=== PATIENT | female | born 1950 | race Caucasian/White ===

== ENCOUNTER 2024-10-09 15:42 | Inpatient (IN) | payer MEDICARE, OTHER, SELFPAY ==
[2024-10-09] VITALS (11 sets, daily range): BP systolic 115–138; BP diastolic 58–82; PULSE 63–105; RESP 12–18; TEMP 36.1–36.3; O2SAT 89–100; BMI 30.2
--- NOTE | 2024-10-09 15:53 | DI.RAD.S_ITS ---
PROCEDURE: XR HIP W PEL IF DONE LT 2V INDICATIONS: fall R hip pain TECHNIQUE: AP pelvis with lateral view(s) of the left hip(s). COMPARISON: [facility], CR, XR CHEST 1V, 10/09/2024, 16:05. FINDINGS: Bones: There is a moderately displaced, comminuted intratrochanteric left femoral neck fracture. No hip dislocation is seen. No definite fractures of the bones of the pelvis can be seen. Generalized degenerative changes are seen. Soft tissues: The visualized bowel gas pattern is normal. No suspicious soft tissue calcifications. IMPRESSION: Intratrochanteric left femoral neck fracture. Dictated by: Jj Vargas M.D. on 10/09/2024 at 15:28 Approved by: Jj Vargas M.D. on 10/09/2024 at 15:29
--- NOTE | 2024-10-09 16:01 | DI.RAD.S_ITS ---
PROCEDURE: XR CHEST 1V INDICATIONS: dyspnea TECHNIQUE: One view of the chest was acquired. COMPARISON: [facility], CR, XR HIP W PEL IF DONE LT 2V, 10/09/2024, 15:50. FINDINGS: Surgical changes and devices: An AICD is seen. Lungs and pleura: On this supine examination, no large pneumothorax or large pleural effusions are seen. No focal areas of lung consolidation are seen. Mediastinum: The cardiac contours are within normal limits. The aorta demonstrates calcification and tortuosity. Bones and chest wall: Age-appropriate bony degenerative changes are seen. No suspicious bony lesions. Overlying soft tissues appear unremarkable. IMPRESSION: No acute cardiopulmonary abnormality is seen. Postoperative and degenerative changes are seen. Dictated by: Jj Vargas M.D. on 10/09/2024 at 15:29 Approved by: Jj Vargas M.D. on 10/09/2024 at 15:30
--- NOTE | 2024-10-09 16:02 | ED_ITS ---
HPI - General Adult General Chief complaint: Trauma Stated complaint: Fall Time Seen by Provider: 10/09/24 15:55 History of Present Illness HPI narrative: 74-year-old woman with a history of congestive heart failure, coronary artery disease, diabetes, hypertension typically seen by physicians in [place] felt a bit dizzy after going to the bathroom, she was using her walker to get back to her area and stumbled over the walker falling and landing on her left hip with significant left hip pain. Initially he had some right arm pain as it was holding onto the walker but that has since resolved. She is brought in by medics. She is alert and appropriate has no specific complaints beyond the severe left hip pain Related Data Home Medications Medication Instructions Recorded Confirmed atorvastatin 40 mg tablet (Lipitor) 40 mg PO DAILY 10/09/24 10/09/24 cholecalciferol (vitamin D3) 50 50 mcg PO DAILY 10/09/24 10/09/24 mcg (2,000 unit) capsule (Vitamin D3) lansoprazole 30 mg capsule,delayed 30 mg PO DAILY 10/09/24 10/09/24 release (Prevacid) losartan 25 mg tablet 12.5 mg PO DAILY 10/09/24 10/09/24 metoprolol succinate 25 mg 25 mg PO DAILY 10/09/24 10/09/24 tablet,extended release 24 hr mexiletine 150 mg capsule 150 mg PO BID 10/09/24 10/09/24 paroxetine HCl 40 mg tablet (Paxil) 40 mg PO DAILY 10/09/24 10/09/24 potassium chloride 10 mEq 10 meq PO DAILY 10/09/24 10/09/24 tablet,extended release(part/cryst) spironolactone 25 mg tablet 25 mg PO BID 10/09/24 10/09/24 topiramate 200 mg tablet (Topamax) 200 mg PO BID 10/09/24 10/09/24 torsemide 20 mg tablet 40 mg PO DAILY 10/09/24 10/09/24 vitamin B complex and vitamin C 1 cap PO DAILY 10/09/24 10/09/24 no.20-folic acid 1 mg capsule Allergies Allergy/AdvReac Type Severity Reaction Status Date / Time erythromycin base Allergy Verified 10/09/24 16:33 [From Staticin] ethyl alcohol [From Staticin] Allergy Verified 10/09/24 16:33 Sulfa (Sulfonamide Allergy Verified 10/09/24 16:33 Antibiotics) Review of Systems Review of Systems Narrative: Pertinent positive and negative findings as per HPI Patient History Medical History Congestive heart failure Coronary artery disease Hypertension Surgical History History of implantable cardiac defibrillator (ICD) Exam Initial Vital Signs Initial Vital Signs: Vital Signs Pulse Rate 72 10/09/24 15:46 Blood Pressure 138/82 10/09/24 15:46 Pulse Oximetry 96 10/09/24 15:46 General: Healthy appearing, complaining of significant left hip pain but Able to give a complete and coherent history. Well-nourished well-developed HEENT: Moist mucous membranes, normal sclera with reactive pupils, Neck: No JVD, supple Respiratory: Lungs are clear to auscultation, no wheezing no rales no rhonchi. Full and symmetrical air movement Cardiac: Regular rate and rhythm no murmurs no bruits Abdomen: Soft, nontender, no flank pain. No rebound or guarding Skin: Warm and dry, no rashes Neurologic: Grossly neurologically intact with no obvious asymmetries or abnormalities, she does have full sensation to hands and feet Extremities: Left hip with significant pain, internally rotated with knee flexed. Psych: Cooperative, appropriate insight and affect Course Orders Ordered: ED Orders 10/09/24 15:53 XR hip w pel if done LT 2V Stat 10/09/24 16:01 XR chest 1V Stat 10/09/24 16:44 Complete Blood Count AUTO DIFF Stat Comprehensive Metabolic Panel Stat NT-proBNP (BNP-Adult 18+) Stat Troponin I Stat Type and Screen Stat Urinalysis and Microscopic Stat 10/09/24 16:45 EKG-12 Lead Stat 10/09/24 16:49 Consult to Orthopedic Surgery Stat XR femur LT min 2V Stat Acetaminophen (Acetaminophen 325 Mg Tablet) 650 mg PO Q6H PRN PRN Reason: Fever/Mild Pain (1-3) Atorvastatin Calcium (Atorvastatin 20 Mg Tablet) 40 mg PO DAILY ARACELY Hydromorphone HCl (Hydromorphone 0.5 Mg Inj) 0.5 mg IV Q15MIN PRN PRN Reason: Pain, Last Admin: 10/09/24 17:53 Dose: 0.5 mg Documented By: Admin: 10/09/24 17:14 Dose: 0.5 mg Documented By: Admin: 10/09/24 16:52 Dose: 0.5 mg Documented By: TC Hydromorphone HCl (Hydromorphone 0.5 Mg Inj) 0.5 mg IV Q15MIN PRN PRN Reason: Pain, Hydromorphone HCl (Hydromorphone 0.5 Mg Inj) 0.5 mg IV Q2H PRN PRN Reason: Pain, Severe (7-10) Hydroxyzine HCl (Hydroxyzine Hcl 25 Mg Tablet) 25 mg PO Q6H PRN PRN Reason: muscle spasm Last Admin: 10/09/24 17:57 Dose: 25 mg Documented By: TC Dextrose/Sodium Chloride (Dextrose 5%-0.45% Ns) 1,000 mls @ 100 mls/hr IV CONT ARACELY Losartan Potassium (Losartan 25 Mg Tablet) 12.5 mg PO DAILY ARACELY Metoprolol Succinate (Metoprolol Er 25 Mg Tablet) 25 mg PO DAILY ARACELY Naloxone HCl (Naloxone 0.4 Mg/Ml Vial) 0.2 mg IV Q2MIN PRN PRN Reason: Opiate Reversal Non-Formulary Medication (Mexiletine) 150 mg PO BID ARACELY Ondansetron HCl (Ondansetron 4 Mg/2 Ml Inj) 4 mg IV Q8HR PRN PRN Reason: Nausea And Vomiting Pantoprazole Sodium (Pantoprazole Dr 40 Mg Tablet) 40 mg PO 0600 ARACELY Paroxetine HCl (Paroxetine 20 Mg Tablet) 40 mg PO DAILY ARACELY Potassium Chloride (Potassium Chloride 10 Meq Tab) 10 meq PO DAILY ARACELY Spironolactone (Spironolactone 25 Mg Tablet) 25 mg PO BID ARACELY Topiramate (Topiramate 100 Mg Tablet) 200 mg PO BID ARACELY Torsemide (Torsemide 10 Mg Tablet) 40 mg PO DAILY ARACELY Discontinued Medications Ondansetron HCl (Ondansetron 4 Mg/2 Ml Inj) 4 mg IV NOW ONE Stop: 10/09/24 16:44 Last Admin: 10/09/24 16:52 Dose: 4 mg Documented By: DONTE Vital Signs Vital signs: Vital Signs - 8 hr 10/09/24 15:46 10/09/24 15:46 10/09/24 15:48 Temperature 97.3 F L Pulse Rate 72 66 Respiratory Rate 16 Blood Pressure 138/82 138/82 Pulse Oximetry 96 100 Oxygen Delivery Method Room Air 10/09/24 16:00 10/09/24 16:00 10/09/24 16:13 Temperature Pulse Rate 70 Respiratory Rate Blood Pressure 137/80 136/81 Pulse Oximetry 98 Oxygen Delivery Method 10/09/24 16:13 10/09/24 16:30 10/09/24 16:31 Temperature Pulse Rate 65 69 Respiratory Rate Blood Pressure 115/70 Pulse Oximetry 96 97 Oxygen Delivery Method 10/09/24 16:31 10/09/24 17:00 10/09/24 17:00 Temperature Pulse Rate 66 63 Respiratory Rate Blood Pressure 123/68 Pulse Oximetry 98 96 Oxygen Delivery Method Medical Decision Making MDM Narrative Medical decision making narrative: CC: Left hip pain after a fall Complicating co-morbidities: Has not had any care in the [place] or [facility] and does not know other medication she is on. Her that she does have heart failure and he is trying to get her med list from home Data collected from: patient, , medics Social determinants of health that may influence the patients condition: Medical records reviewed: No medical records are available Differential considered: Hip fracture, pelvic fracture, hypotension, infection, acute coronary syndrome all that could have caused the weakness that led to her fall despite the fact that she describes a fall as mostly mechanical Exam documented above, pertinent findings include: Aside from her left hip pain remainder of exam is actually quite benign. She does not have any signs or symptoms of infection or congestive heart failure Imaging studies independently reviewed: Pelvis and hip x-ray does show left intertrochanteric fracture Chest x-ray is unremarkable Consultations: Dr. Nagel, orthopedic surgeon. Did ask for full femur x-rays. Treatments: Dilaudid for pain control, Vistaril for muscle spasm Re-evaluations: Patient would much prefer to be admitted to [facility] where her director communications are. Unfortunately there are no beds available and transfer is not going to be an option. This was reviewed with the patient Discussion: 74-year-old woman who stumbled over her walker while at the [facility] today landing on her left hip and sustaining a femoral trochanteric fracture that will need operative intervention. Patient will be admitted to the hospitalist service and care has been discussed with the patient, , hospitalist and orthopedic surgeon. Additional medical workup has been ordered and is not yet available for review. Medical records are not immediately if he available however did bring in a detailed med list and current med list does recommend what she is actually taking. She will be admitted with anticipation of surgical repair of her hip fracture. Discharge Plan Departure Patient Disposition: Admitted As Inpatient Clinical Impression: Closed hip fracture Qualifiers: Encounter type: initial encounter Laterality: left Qualified Code(s): S72.002A - Fracture of unspecified part of neck of left femur, initial encounter for closed fracture Admit Date/Time: 10/09/24 17:09 Admit Provider: Tyrel Aldana V
--- NOTE | 2024-10-09 16:45 | EKG_ITS ---
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
--- NOTE | 2024-10-09 16:49 | DI.RAD.S_ITS ---
PROCEDURE: XR FEMUR LT MIN 2V INDICATIONS: fracture TECHNIQUE: 2 views of the femur were acquired. COMPARISON: [facility], CR, XR CHEST 1V, 10/09/2024, 16:05. [facility], CR, XR HIP W PEL IF DONE LT 2V, 10/09/2024, 15:50. FINDINGS: Bones: An intertrochanteric fracture of the left femoral neck is again seen. No fracture can be seen more distally in seen. Age-appropriate bony degenerative changes are seen. Soft tissues: No suspicious soft tissue calcifications or masses. IMPRESSION: Intratrochanteric left femoral neck fracture, without a more distal fracture seen. Dictated by: Jj Vargas M.D. on 10/09/2024 at 16:24 Approved by: Jj Vargas M.D. on 10/09/2024 at 16:24
[2024-10-09] MEDS: ONDANSETRON 4 MG/2 ML INJ IV (16:52)
[2024-10-09] MEDS: HYDROMORPHONE 0.5 MG INJ IV ×5 (16:52→22:49)
--- NOTE | 2024-10-09 17:22 | PM.HP.1 ---
History of Present Illness History of Present Illness Date Patient Seen: 10/09/24 Time Patient Seen: 18:05 Date of Onset of Symptoms: 10/09/24 Chief complaint: Fall Narrative: 74-year-old woman [place] from [place] with her tripped coming out of the bathroom, landing on her left hip with immediate pain. She also struck her right shoulder though states there is no pain in this area. She was unable to get up and was brought to the emergency department where she was found to have a left hip intertrochanteric fracture. She has a history of coronary disease and congestive heart failure, ejection fraction 40%, status post AICD pacemaker placement. She denies recent chest pain or cardiac symptoms, and has been stable for several years according to her and her . They had wished to transfer to [facility] though given lack of available bed space was agreeable to staying for surgical and medical management. [facility] Medical History Congestive heart failure Coronary artery disease Hypertension Surgical History History of implantable cardiac defibrillator (ICD) Meds Home Medications and Allergies Home Medications Medication Instructions Recorded Confirmed Type atorvastatin 40 mg tablet (Lipitor) 40 mg PO DAILY 10/09/24 10/09/24 History cholecalciferol (vitamin D3) 50 50 mcg PO DAILY 10/09/24 10/09/24 History mcg (2,000 unit) capsule (Vitamin D3) lansoprazole 30 mg capsule,delayed 30 mg PO DAILY 10/09/24 10/09/24 History release (Prevacid) losartan 25 mg tablet 12.5 mg PO DAILY 10/09/24 10/09/24 History metoprolol succinate 25 mg 25 mg PO DAILY 10/09/24 10/09/24 History tablet,extended release 24 hr mexiletine 150 mg capsule 150 mg PO BID 10/09/24 10/09/24 History paroxetine HCl 40 mg tablet (Paxil) 40 mg PO DAILY 10/09/24 10/09/24 History potassium chloride 10 mEq 10 meq PO DAILY 10/09/24 10/09/24 History tablet,extended release(part/cryst) spironolactone 25 mg tablet 25 mg PO BID 10/09/24 10/09/24 History topiramate 200 mg tablet (Topamax) 200 mg PO BID 10/09/24 10/09/24 History torsemide 20 mg tablet 40 mg PO DAILY 10/09/24 10/09/24 History vitamin B complex and vitamin C 1 cap PO DAILY 10/09/24 10/09/24 History no.20-folic acid 1 mg capsule Allergies Allergy/AdvReac Type Severity Reaction Status Date / Time erythromycin base Allergy Verified 10/09/24 16:33 [From Staticin] ethyl alcohol [From Staticin] Allergy Verified 10/09/24 16:33 Sulfa (Sulfonamide Allergy Verified 10/09/24 16:33 Antibiotics) Review of Systems Review of Systems ROS: Yes All systems reviewed with the patient and are negative except as otherwise documented Exam Vital Signs (past 8 hours): - 10/09/24 15:48 Temperature 97.3 F L Pulse Rate 66 Respiratory Rate 16 Blood Pressure 138/82 Pulse Oximetry 100 Oxygen Delivery Method Room Air Oxygen Delivery Method Room Air Narrative Exam Narrative: GENERAL: This is a well-nourished, well-developed patient, in no apparent distress. HEAD: Atraumatic. Normocephalic. No temporal or scalp tenderness. EYES: Pupils equal round and reactive. Extraocular motions intact. No scleral icterus. No injection or drainage. ENT: Mucous membranes pink and moist. NECK: Trachea midline. No JVD, bruits or lymphadenopathy. Supple, nontender, no meningeal signs. CARDIOVASCULAR: Regular rate and rhythm without murmurs, gallops, or rubs. RESPIRATORY: Clear to auscultation. GASTROINTESTINAL: Abdomen soft, non-tender, nondistended. EXTREMITIES: No clubbing, cyanosis, or edema. Left leg shortened. BACK: Nontender without deformity or crepitance. No flank tenderness. NEUROLOGIC: Alert, oriented, speech fluent, full upper and lower motor strength, no focal deficits evident. DERMATOLOGIC: No rashes or skin lesions. Objective Imaging Chest x-ray: Radiologist's impression: No acute cardiopulmonary abnormality is seen. Postoperative and degenerative changes are seen. Left hip xray: Radiologist's impression: Intratrochanteric left femoral neck fracture. Left femur xray: Radiologist's impression: Intratrochanteric left femoral neck fracture, without a more distal fracture seen. Labs Labs: Pending Assessment & Plan Assessment & Plan narrative: 1. Left intertrochanteric hip fracture. Anticipate surgical repair tomorrow. Orthopedics. 2. Congestive heart failure with reduced ejection fraction. Continue routine medication follow closely in the postoperative period for volume overload. 3. Coronary artery disease. Clinically stable. Pending EKG and laboratory testing. 4. Hypertension. Continue routine medication. 5. Hyperlipidemia. Continue routine medication. 6. Depression continue SSRI. 7. DVT prophylaxis: Sequential compression devices, postoperative management per Orthopedics. 8. Code status: Full code. Plan: -admit as inpatient -operative management per Orthopedics -release old records -pending labs -pending medical clearance Quality MIPS - Admit I confirm the patient?s Advance Care Plan is present, Code status is documented, Surrogate decision maker is in patient?s record [If Yes, STOP here]: Yes [facility] - Meds 'Current medications' to include all prescriptions, [id number] products, herbals, cannabis/cannabidiol products, and vitamin/mineral/dietary (nutritional) supplements. I have utilized all available resources to obtain, update, or review the patient?s current medications. [If Yes, STOP here]: Yes [facility] Charge Codes Initial inpatient/observation care: 44619
[2024-10-09] MEDS: hydrOXYzine HCL 25 MG TABLET PO (17:57)
--- NOTE | 2024-10-09 19:02 | PC.NURSE ---
[place] over her walker in the bathroom. She obtained L.femoral neck fx. Patient given 0.5mg of iv dilaudid and is resting comfortably in room. at bedside. Tele on and scds.
--- NOTE | 2024-10-09 20:08 | P.HP_ITS ---
History of Present Illness History of Present Illness Date Patient Seen: 10/09/24 Time Patient Seen: 20:08 Date of Onset of Symptoms: 10/09/24 Chief complaint: Fall Narrative: This is a pleasant 74-year-old with multiple medical problems [facility] to go to [facility] bathroom and she tripped over a walker and fell and noted the acute onset of severe left hip pain. She normally ambulates with a walker. She does have medical problems including history of congestive heart failure. She says that her most recent echo showed improved function. She does note some generalized weakness. She did not have specific chest pain prior to her fall and was not dizzy or lightheaded. [facility] Medical History Coronary artery disease Hypertension Congestive heart failure Surgical History History of implantable cardiac defibrillator (ICD) Meds Home Medications and Allergies Home Medications Medication Instructions Recorded Confirmed Type atorvastatin 40 mg tablet (Lipitor) 40 mg PO DAILY 10/09/24 10/09/24 History cholecalciferol (vitamin D3) 50 50 mcg PO DAILY 10/09/24 10/09/24 History mcg (2,000 unit) capsule (Vitamin D3) lansoprazole 30 mg capsule,delayed 30 mg PO DAILY 10/09/24 10/09/24 History release (Prevacid) losartan 25 mg tablet 12.5 mg PO DAILY 10/09/24 10/09/24 History metoprolol succinate 25 mg 25 mg PO DAILY 10/09/24 10/09/24 History tablet,extended release 24 hr mexiletine 150 mg capsule 150 mg PO BID 10/09/24 10/09/24 History paroxetine HCl 40 mg tablet (Paxil) 40 mg PO DAILY 10/09/24 10/09/24 History potassium chloride 10 mEq 10 meq PO DAILY 10/09/24 10/09/24 History tablet,extended release(part/cryst) spironolactone 25 mg tablet 25 mg PO BID 10/09/24 10/09/24 History topiramate 200 mg tablet (Topamax) 200 mg PO BID 10/09/24 10/09/24 History torsemide 20 mg tablet 40 mg PO DAILY 10/09/24 10/09/24 History vitamin B complex and vitamin C 1 cap PO DAILY 10/09/24 10/09/24 History no.20-folic acid 1 mg capsule Allergies Allergy/AdvReac Type Severity Reaction Status Date / Time erythromycin base Allergy Verified 10/09/24 16:33 [From Staticin] ethyl alcohol [From Staticin] Allergy Verified 10/09/24 16:33 Sulfa (Sulfonamide Allergy Verified 10/09/24 16:33 Antibiotics) Review of Systems Review of Systems Narrative: She notes her health has been relatively stable. She has some generalized wea kness. She did not have any acute chest pain. She was not lightheaded or dizzy prior to the fall. She is walker dependent. She has a very supportive family at bedside. Exam Vital Signs (past 8 hours): - 10/09/24 15:46 10/09/24 15:46 10/09/24 15:48 Temperature 97.3 F L Pulse Rate 72 66 Respiratory Rate 16 Blood Pressure 138/82 138/82 Pulse Oximetry 96 100 Oxygen Delivery Method Room Air Oxygen Flow Rate 10/09/24 16:00 10/09/24 16:00 10/09/24 16:13 Temperature Pulse Rate 70 Respiratory Rate Blood Pressure 137/80 136/81 Pulse Oximetry 98 Oxygen Delivery Method Oxygen Flow Rate 10/09/24 16:13 10/09/24 16:30 10/09/24 16:31 Temperature Pulse Rate 65 69 Respiratory Rate Blood Pressure 115/70 Pulse Oximetry 96 97 Oxygen Delivery Method Oxygen Flow Rate 10/09/24 16:31 10/09/24 17:00 10/09/24 17:00 Temperature Pulse Rate 66 63 Respiratory Rate Blood Pressure 123/68 Pulse Oximetry 98 96 Oxygen Delivery Method Oxygen Flow Rate 10/09/24 17:30 10/09/24 17:30 10/09/24 18:00 Temperature Pulse Rate 72 Respiratory Rate Blood Pressure 133/78 122/66 Pulse Oximetry 89 L Oxygen Delivery Method Oxygen Flow Rate 10/09/24 18:00 10/09/24 18:15 Temperature 96.9 F L Pulse Rate 87 86 Respiratory Rate 12 Blood Pressure 125/67 Pulse Oximetry 96 97 Oxygen Delivery Method Oxygen Flow Rate 0 Oxygen Delivery Method Room Air Oxygen Flow Rate 0 Narrative Exam Narrative: HEENT is benign, lungs are clear cor regular rate and rhythm abdomen soft and benign, left hip foreshortened, severe pain with any attempted range of motion, mild swelling in bilateral lower extremities, some deformity of her toes in bilateral lower extremities which are taped, she has trace motion leg, no pain with range of motion right hip marked pain with any attempted gentle range motion of the left hip Objective Labs Labs: X-rays show a left intertrochanteric hip fracture which is comminuted but not severely displaced Assessment & Plan Assessment and plan (1) Closed hip fracture: Qualifiers: Encounter type: initial encounter Laterality: left Qualified Code(s): S72.002A - Fracture of unspecified part of neck of left femur, initial encounter for closed fracture Status: Acute Plan I have recommended left hip intramedullary nailing with a femoral nail for her intertrochanteric hip fracture. The procedure options risks benefits and complications were discussed in detail. She is on the medical service. She has multiple medical problems including a history of congestive heart failure. She is scheduled for tomorrow afternoon which hopefully will give the medicine service time to stabilize her medical problems. The options the risks the benefits and complications were discussed in detail number work on getting her set up for surgery tomorrow. Time-Based Coding :: [TOTAL MINUTES] spent with patient and on the chart (including review of chart, obtaining history, exam, reviewing outside data, placing orders, documenting exam and treatment plan, and counseling patient) on [DATE].
[2024-10-09] MEDS: ACETAMINOPHEN 325 MG TABLET 650 MG PO (20:59)
[2024-10-09] MEDS: TOPIRAMATE 100 MG TABLET 200 MG PO (21:00)
[2024-10-09] MEDS: SPIRONOLACTONE 25 MG TABLET PO (21:00)
[2024-10-09 21:30] LABS: Add Manual Diff / Slide Review NO; Basophils Absolute Auto 0 /uL (0-100); Basophils Percent Auto 0.4 % (0-2); Eosinophils Absolute Auto 200 /uL (0-450); Eosinophils Percent Auto 1.3 % (2-4); Hematocrit 40.9 % (36-46); Hemoglobin 13.4 g/dL (12.0-16.0); Lymphocytes Absolute Auto 1300 /uL (1100-4500); Lymphocytes Percent Auto 10.5 % (25-40); Mean Corpuscular HGB Conc 32.8 % (30-36); Mean Corpuscular Hemoglobin 32.2 PG (26-34); Mean Corpuscular Volume 98.2 fL (80-100); Monocytes Absolute Auto 900 /uL (0-900); Monocytes Percent Auto 7.1 % (3-14); Neutrophils Absolute Auto 10300 /uL (1500-7000); Neutrophils Percent Auto 80.7 % (50-75); Platelet Count 203 X10^3/uL (150-400); Red Blood Cell Count 4.17 X10^6/uL (4.0-5.2); Red Cell Distribution Width 14.4 % (11.6-14.8); White Blood Cell Count 12.8 X10^3/uL (4.5-11.0)
[2024-10-09 21:45] LABS: Alanine Aminotransferase 21 IU/L (<35); Albumin 4.3 g/dL (3.5-5.0); Albumin Globulin Ratio 1.8 (1.0-2.8); Alkaline Phosphatase 84 U/L (38-126); Aspartate Aminotransferase 31 IU/L (14-36); BUN Creatinine Ratio 16.4 (6-22); Bilirubin Total 0.4 mg/dL (0.2-1.3); Blood Urea Nitrogen 21 mg/dL (7-17); Calcium 8.8 mg/dL (8.4-10.2); Carbon Dioxide 22 mmol/L (22-32); Chloride 105 mmol/L (98-107); Estimated Glomerular Filt Rate 43 mL/min (>60); Globulin 2.4 g/dL (1.7-4.1); Glucose 109 mg/dL (80-110); HEMOLYSIS 17 (0-50); Potassium 3.9 mmol/L (3.4-5.1); Sodium 136 mmol/L (137-145); Total Protein 6.7 g/dL (6.3-8.2)
[2024-10-09 21:57] LABS: NT-proBNP (BNP-Adult 18+) 844 pg/mL (<450); Troponin I 0.041 ng/mL (0.01-0.034)
[2024-10-10] VITALS (14 sets, daily range): BP systolic 99–127; BP diastolic 60–75; PULSE 91–114; RESP 9–19; TEMP 36.2–37.1; O2SAT 88–99; BMI 30.2
[2024-10-10] MEDS: DEXTROSE 5%-0.45% NS 1,000 ML 100 ML IV (01:00)
[2024-10-10] MEDS: hydrOXYzine HCL 25 MG TABLET PO (04:07)
[2024-10-10] MEDS: HYDROMORPHONE 0.5 MG INJ IV ×2 (04:07→07:58)
[2024-10-10] MEDS: ACETAMINOPHEN 325 MG TABLET 650 MG PO ×2 (04:07→20:53)
--- NOTE | 2024-10-10 04:58 | PC.NURSE ---
Addendum entered by Barb Soria R.N. 10/10/24 05:46: 0546: No new orders from MD Resendez, will continue to monitor and pass on to dayshift. Original Note: NOC: During assessment, noticed that pt seemed intermittently confused by commands and had pinpoint pupils (though still PERRLA). Pt stated I think I'm going to but when questioned further, pt stated My leg just hurts a lot. Pt's present in room stated that pt has a previous dx of mild cognitive decline and that current behavior seemed slightly more confused and anxious than normal but not greatly. However, d/t hx of recent fall, performed NIH stroke test, NIH score of 4 d/t not able to state age, L arm drift down to bed, inability to resist gravity with R (uninjured) leg, and inability to describe anything in illustration. Pt easily distracted and needed to be redirected to answer questions several times. Pt states no headache or SOB. Care continues, pt resting comfortably. Informed MD Resendez [id number].
[2024-10-10 05:02] LABS: Add Manual Diff / Slide Review NO; Basophils Absolute Auto 0 /uL (0-100); Basophils Percent Auto 0.5 % (0-2); Eosinophils Absolute Auto 200 /uL (0-450); Eosinophils Percent Auto 1.6 % (2-4); Hematocrit 37.6 % (36-46); Hemoglobin 12.6 g/dL (12.0-16.0); Lymphocytes Absolute Auto 1700 /uL (1100-4500); Lymphocytes Percent Auto 17.2 % (25-40); Mean Corpuscular HGB Conc 33.5 % (30-36); Mean Corpuscular Hemoglobin 32.7 PG (26-34); Mean Corpuscular Volume 97.8 fL (80-100); Monocytes Absolute Auto 800 /uL (0-900); Monocytes Percent Auto 8.4 % (3-14); Neutrophils Absolute Auto 7200 /uL (1500-7000); Neutrophils Percent Auto 72.3 % (50-75); Platelet Count 185 X10^3/uL (150-400); Red Blood Cell Count 3.84 X10^6/uL (4.0-5.2); White Blood Cell Count 9.9 X10^3/uL (4.5-11.0)
[2024-10-10 05:15] LABS: BUN Creatinine Ratio 16.7 (6-22); Blood Urea Nitrogen 25 mg/dL (7-17); Calcium 8.6 mg/dL (8.4-10.2); Carbon Dioxide 23 mmol/L (22-32); Chloride 103 mmol/L (98-107); Estimated Glomerular Filt Rate 36 mL/min (>60); Glucose 118 mg/dL (80-110); HEMOLYSIS < 15 (0-50); Sodium 134 mmol/L (137-145)
[2024-10-10] MEDS: PANTOPRAZOLE DR 40 MG TABLET PO (06:20)
--- NOTE | 2024-10-10 06:53 | PC.NURSE ---
0655: Pt had scant urine output by 0530, went to bladder scan but scanner had been put in ballroom unplugged and was . Swapped out battery and PCT [place] bladder scanned, 761mL in bladder. Notified MD Resendez and coordinator Agueda; entered telephone orders for straight cath per MD Resendez. Coordinator contacted and confirmed AM float nurse available at 0700 to straight cath. Pt states no pain or discomfort, educated on straight cath procedure. Care continues.
--- NOTE | 2024-10-10 08:14 | DI.ECHO.S_ITS ---
[facility]---------+ [facility] : : [address] : : [place] : : [id number] : : Phone: [phone] Echocardiogram Report + + :Name: MUNIRA BRUNO Study Date: 10/10/2024 Height: 61 in : :Hospital ReadingLocation: Weight: 160 lb : : Gender: Female BSA: 1.7 m2 : :: 1950 Age: 74 yrs BP: 127/61 mmHg: :Reason For Study: PRE-OP, CARDIOMYOPATHY, LEFT HIP FRACTURE : :Ordering Physician: ZAIDA, : :LEOPOLDO Vargas Performed By: Samantha Burroughs : :Referring: LEOPOLDO CERDA : + + Interpretation Summary The study quality was technically difficult. The ejection fraction is estimated to be 35-40%. Akinesis of the mid to apical anterior, anterolateral and anterolateral shanks. The right ventricle is not well visualized. Pulmonary artery pressures cannot be estimated because of the lack of a measurable TR jet velocity but the IVC suggests a CVP of around 3 mmHg. No significant valvular abnormality. No prior studies available for comparison. Procedure: A two-dimensional transthoracic echocardiogram with color flow and Doppler was performed. The study quality was technically difficult. There is no prior echocardiogram noted for this patient. Patient scanned in a supine position due to left hip fracture. The heart rate ranged between 102-115 bpm during the study. Left Ventricle: The left ventricle is borderline dilated. There is normal left ventricular wall thickness. The ejection fraction is estimated to be 35- 40%. There is a moderate dyssynchronous contraction pattern due to the paced rhythm. Akinesis of the mid to apical anterior, anterolateral and anterolateral shanks. Diastolic parameters suggest a relaxation abnormality of the left ventricle, consistent with probable normal filling pressures. Diastolic function could not be accurately assessed due to unobtainable data. Right Ventricle: The right ventricle is not well visualized. There is a pacemaker lead in the right ventricle. Atria: The left atrium is not well visualized. The left atrium grossly appears normal in size. Right atrium not well visualized. The right atrium grossly appears normal in size. There is no Doppler evidence for an interatrial shunt. Mitral Valve: The mitral valve leaflets appear mildly thickened, but open well. There is no mitral regurgitation noted. Aortic Valve: The aortic valve is trileaflet. The aortic valve opens well. There is no aortic valve stenosis. No aortic regurgitation is present. Tricuspid Valve: The tricuspid valve is not well visualized. There is trace tricuspid regurgitation. Pulmonary artery pressures cannot be estimated because of the lack of a measurable TR jet velocity but the IVC suggests a CVP of around 3 mmHg. Pulmonic Valve: The pulmonic valve leaflets are thin and pliable; valve motion is normal. There is mild pulmonic regurgitation. Great Vessels: The aortic root is normal size. The dimensions of the ascending aorta are normal. The IVC is of normal diameter and collapses greater than 50% with a sniff. This suggests a low right atrial pressure of 3 mm Hg. Pericardium/ Pleura There is no pericardial effusion. There is no pleural effusion. MMode/2D Measurements & Calculations LVIDd: 4.9 cm LVOT diam: 2.3 cm LVIDs: 4.1 cm Ao root diam: 3.3 cm FS: 16.8 % asc Aorta Diam: 3.5 cm EPSS: 1.4 cm Ao Arch Diam (Prox Trans): 3.3 cm IVSd: 0.87 cm LVPWd: 0.87 cm LV heredia. diameter/BSA (cm/m^2): 2.9 LV sys. diameter/BSA (cm/m^2): 2.4 IVC diam: 0.79 cm Doppler Measurements & Calculations Ao V2 max: 103.8 cm/sec LVOT Max Madi: 58.3 cm/sec Ao V2 mean: 75.3 cm/sec LV V1 max P.4 mmHg Ao max P.3 mmHg LV V1 VTI: 7.7 cm Ao mean P.5 mmHg JAILYN(I,D): 2.1 cm2 Ao V2 VTI: 16.0 cm JAILYN(V,D): 2.4 cm2 sev ratio: 0.48 JAILYN indexed to BSA (cm^2/m^2): 1.2 MV E max madi: 82.8 cm/sec PA V2 max: 113.3 cm/sec MV A max madi: 0.93 cm/sec PA V2 mean: 69.8 cm/sec MV E/A: 89.4 PA mean P.3 mmHg Med Peak E' Madi: 9.3 cm/sec PA pr(Accel): 37.9 mmHg E/E' med: 8.9 Lat Peak E' Madi: 7.8 cm/sec E/E' lat: 10.6 E/e' average: 9.8 MV dec time: 0.11 sec SV(LVOT): 33.0 ml Reading Physician:FELICIA
--- NOTE | 2024-10-10 08:17 | PM.PN.1 ---
Subjective Subjective Date Patient Seen: 10/10/24 Interval history: She is seen in her room here to follow-up her cardiomyopathy and hip fracture. Her is present and gives most of the history. [place] her [place], but when the plan to transfer to the hospital near her home in [place] was proposed there was no bed space available. Her most recent reported ejection fraction was 40% so a follow-up echo is pending for today. Her EKG appears to show sinus tachycardia, just above 100, although there is also a hint of atrial flutter? She is discussed with Dr. Nagel for a medical preop clearance. The echocardiogram report is still pending. The Troponin was 0.041 and the BNP was 844 yesterday. Exam Vital Signs (past 8 hours): Oxygen Delivery Method Room Air Oxygen Flow Rate 0 Narrative Exam Narrative: She is alert and oriented x3. She is quite reticent. No apparent distress. Heart is regular rate and rhythm without murmur Lungs are clear to auscultation bilaterally Extremities have no ankle edema Hip exam per Orthopedics. Objective Labs 10/10/24 04:28 10/10/24 04:28 Labs: Laboratory Results - last 24 hr 10/09/24 10/10/24 20:59 04:28 WBC 12.8 H 9.9 RBC 4.17 3.84 L Hgb 13.4 12.6 Hct 40.9 37.6 MCV 98.2 97.8 MCH 32.2 32.7 MCHC 32.8 33.5 RDW 14.4 14.0 Plt Count 203 185 Neut % (Auto) 80.7 H 72.3 Lymph % (Auto) 10.5 L 17.2 L [place] % (Auto) 7.1 8.4 Eos % (Auto) 1.3 L 1.6 L Baso % (Auto) 0.4 0.5 Neut # (Auto) 52364 H 7200 H Lymph # (Auto) 1300 1700 [place] # (Auto) 900 800 Eos # (Auto) 200 200 Baso # (Auto) 0 0 Sodium 136 L 134 L Potassium 3.9 4.0 Chloride 105 103 Carbon Dioxide 22 23 BUN 21 H 25 H Creatinine 1.28 H 1.50 H Estimated GFR 43 L 36 L BUN/Creatinine Ratio 16.4 16.7 Glucose 109 118 H Calcium 8.8 8.6 Total Bilirubin 0.4 AST 31 ALT 21 Alkaline Phosphatase 84 Troponin I 0.041 H NT-Pro-B Natriuret Pep 844 H Total Protein 6.7 Albumin 4.3 Globulin 2.4 Albumin/Globulin Ratio 1.8 Blood Type A Positive Antibody Screen Negative [facility] Medical History Coronary artery disease Hypertension Congestive heart failure Surgical History History of implantable cardiac defibrillator (ICD) Social History household members: spouse Smoking Status: Never smoker alcohol intake: current Assessment & Plan Assessment & Plan narrative: 1. Left intertrochanteric hip fracture. Anticipate surgical repair today. D/W Dr. Nagel - Orthopedics. 2. Congestive heart failure with reduced ejection fraction. Continue routine medication follow closely in the postoperative period for volume overload. 3. Coronary artery disease. Clinically stable. Pending Echo. EKG - Mild ST. 4. Hypertension. Continue routine medication. 5. Hyperlipidemia. Continue routine medication. 6. SERGE/CKD. Creatinine 1.5. 7. Depression continue SSRI. 8. DVT prophylaxis: Sequential compression devices, postoperative management per Orthopedics. 9. Code status: Full code. Plan: -operative management per Orthopedics -medical clearance for surgery - Echo report still pending Time-Based Coding :: [TOTAL MINUTES] spent with patient and on the chart (including review of chart, obtaining history, exam, reviewing outside data, placing orders, documenting exam and treatment plan, and counseling patient) on [DATE].
[2024-10-10] MEDS: METOPROLOL ER 25 MG TABLET PO (09:57)
--- NOTE | 2024-10-10 11:05 | PC.NURSE ---
Addendum entered by Tigist Saunders R.N. 10/10/24 16:00: Patient back from surgery earlier, she is more alert and oriented now. Put on 1L of oxygen as she went down to 88% on RA sleeping. Resting comfortably and LR infusing at 100cc/hr Original Note: Patient is slightly confused this morning, possibly from the iv dilaudid. This was given this morning and is helpful with patients l.hip discomfort. She was just taken to surgery at 1110.
--- NOTE | 2024-10-10 11:43 | PM.HP.1 ---
History of Present Illness History of Present Illness Chief complaint: Fall Narrative: CHIEF COMPLAINT: Closed left hip fracture PATIENT SUMMARY: The patient is a 74-year-old female who presented with a closed left hip fracture. HISTORY OF PRESENT ILLNESS: The patient is a 74-year-old female with a history of congestive heart failure and coronary artery disease who presented with a closed left hip fracture. The patient [place], got up to go to the bathroom, tripped over a walker, and fell. The patient normally ambulates with a walker. A radiographic review indicated a displaced intertrochanteric left femur fracture. An echocardiogram performed today showed an ejection fraction of 35-40%. The patient reported no diabetes or issues with the liver or kidneys. She experienced shortness of breath and tiredness when walking long distances or climbing stairs. She had a history of a seizure disorder with a significant event last , though further workup was not completed. Her feet were noted to be cold and numb. She was planned for surgery under general anesthesia, with noted risks due to her heart condition. PAST MEDICAL HISTORY: - Congestive heart failure - Coronary artery disease - Seizure disorder PAST SURGICAL HISTORY: - Pacemaker placement (date not specified) MEDICATIONS: - Beta blockers (specific medication and dosage not provided) - Seizure medications (specific medication and dosage not provided) ALLERGIES: No known allergies SOCIAL HISTORY: - Uses a walker for ambulation - Lives with in a home without stairs - Resides originally from [place] FAMILY HISTORY: Not available REVIEW OF SYSTEMS: Cardiovascular: Positive for shortness of breath and tiredness upon exertion. Negative for chest pain or palpitations. Neurological: Positive for history of seizure disorder. Negative for recent seizures. Musculoskeletal: Positive for hip pain due to fracture. Negative for other joint pains. VITALS AND PHYSICAL EXAM: LLE: ROM deferred due to known injury. Foot warm and well perfused. No open wounds. SILT grossly in L2-S1 nerve distributions. ASSESSMENT: 1. Displaced intertrochanteric left femur fracture: The fracture was identified via radiographic review and is consistent with the mechanism of injury. The patient was scheduled for surgical intervention. 2. Congestive heart failure: The patient's reduced ejection fraction of 35-40% observed on echocardiogram is consistent with a history of heart failure and poses increased risks during anesthesia and surgery. 3. Seizure disorder: Past history of seizures with a significant event last . The disorder appears to be managed with medication, but recent adjustments were noted. PLAN: Treatment: - Surgical intervention for left hip fracture with daisy and screws placement. - Pain management with Tylenol, ice application, and opioids (Tramadol and Oxycodone) as needed. Tests: - Echocardiogram results reviewed (ejection fraction 35-40%). Patient Education: - Discussed the risks of surgery, including potential cardiac complications. - Informed about the possibility of a painful recovery and the importance of physical therapy. - Educated on pain management strategies, including medication and ice application. Follow-Up: - Monitor post-operative recovery and healing progress. - Plan for physical therapy at a nursing facility and potentially at home. Disposition: - Admitted for surgery and post-operative care. - Anticipated stay of at least three days in the hospital, depending on recovery and mobility status. [facility] Medical History Coronary artery disease Hypertension Congestive heart failure Surgical History History of implantable cardiac defibrillator (ICD) Social History household members: spouse Smoking Status: Never smoker alcohol intake: current Meds Home Medications and Allergies Home Medications Medication Instructions Recorded Confirmed Type atorvastatin 40 mg tablet (Lipitor) 40 mg PO DAILY 10/09/24 10/09/24 History cholecalciferol (vitamin D3) 50 50 mcg PO DAILY 10/09/24 10/09/24 History mcg (2,000 unit) capsule (Vitamin D3) lansoprazole 30 mg capsule,delayed 30 mg PO DAILY 10/09/24 10/09/24 History release (Prevacid) losartan 25 mg tablet 12.5 mg PO DAILY 10/09/24 10/09/24 History metoprolol succinate 25 mg 25 mg PO DAILY 10/09/24 10/09/24 History tablet,extended release 24 hr mexiletine 150 mg capsule 150 mg PO BID 10/09/24 10/09/24 History paroxetine HCl 40 mg tablet (Paxil) 40 mg PO DAILY 10/09/24 10/09/24 History potassium chloride 10 mEq 10 meq PO DAILY 10/09/24 10/09/24 History tablet,extended release(part/cryst) spironolactone 25 mg tablet 25 mg PO BID 10/09/24 10/09/24 History topiramate 200 mg tablet (Topamax) 200 mg PO BID 10/09/24 10/09/24 History torsemide 20 mg tablet 40 mg PO DAILY 10/09/24 10/09/24 History vitamin B complex and vitamin C 1 cap PO DAILY 10/09/24 10/09/24 History no.20-folic acid 1 mg capsule Allergies Allergy/AdvReac Type Severity Reaction Status Date / Time erythromycin base Allergy Verified 10/10/24 11:22 [From Staticin] ethyl alcohol [From Staticin] Allergy Verified 10/10/24 11:22 simvastatin Allergy Verified 10/10/24 11:23 Sulfa (Sulfonamide Allergy Verified 10/10/24 11:22 Antibiotics) Exam Vital Signs (past 8 hours): - 10/10/24 10:00 Temperature 97.2 F L Pulse Rate 97 H Respiratory Rate 18 Blood Pressure 111/61 Pulse Oximetry 97 Oxygen Flow Rate 0 Oxygen Delivery Method Room Air Oxygen Flow Rate 0 Objective Labs 10/10/24 04:28 10/10/24 04:28 Labs: Laboratory Results - last 24 hr 10/09/24 10/10/24 20:59 04:28 WBC 12.8 H 9.9 RBC 4.17 3.84 L Hgb 13.4 12.6 Hct 40.9 37.6 MCV 98.2 97.8 MCH 32.2 32.7 MCHC 32.8 33.5 RDW 14.4 14.0 Plt Count 203 185 Neut % (Auto) 80.7 H 72.3 Lymph % (Auto) 10.5 L 17.2 L [place] % (Auto) 7.1 8.4 Eos % (Auto) 1.3 L 1.6 L Baso % (Auto) 0.4 0.5 Neut # (Auto) 64904 H 7200 H Lymph # (Auto) 1300 1700 [place] # (Auto) 900 800 Eos # (Auto) 200 200 Baso # (Auto) 0 0 Sodium 136 L 134 L Potassium 3.9 4.0 Chloride 105 103 Carbon Dioxide 22 23 BUN 21 H 25 H Creatinine 1.28 H 1.50 H Estimated GFR 43 L 36 L BUN/Creatinine Ratio 16.4 16.7 Glucose 109 118 H Calcium 8.8 8.6 Total Bilirubin 0.4 AST 31 ALT 21 Alkaline Phosphatase 84 Troponin I 0.041 H NT-Pro-B Natriuret Pep 844 H Total Protein 6.7 Albumin 4.3 Globulin 2.4 Albumin/Globulin Ratio 1.8 Blood Type A Positive Antibody Screen Negative Assessment & Plan Time-Based Coding :: [TOTAL MINUTES] spent with patient and on the chart (including review of chart, obtaining history, exam, reviewing outside data, placing orders, documenting exam and treatment plan, and counseling patient) on [DATE].
[2024-10-10] MEDS: LACTATED RINGERS 1,000 ML 42 ML IV (12:00)
[2024-10-10] MEDS: CEFAZOLIN 2 GM/100 ML PREMIX 100 ML IV ×2 (12:05→20:52)
[2024-10-10] MEDS: TRANEXAMIC ACID 1,000 MG in SODIUM CHLORIDE 0.9% 100 ML 200 MG IV (12:10)
--- NOTE | 2024-10-10 12:27 | SUR.OPER ---
Supine on padded [place] table with bilateral legs secured in padded positioning boots and suspended in positioning spars, operative leg in traction per surgeon. Head on one pillow. Arm on non-operative side secured on padded armboard <90 degrees abduction. Arm on operative side padded and resting across chest then secured with tape over sheet. Padded perineal post in place per surgeon.
[2024-10-10] MEDS: BUPIVACAINE 0.25% W/ EPI 30 ML VIAL INJ (12:31)
--- NOTE | 2024-10-10 12:38 | CM.DANOTE ---
B DCP Assessment Note Pt is a 74yo F here following a GLF resulting in hip fracture. plan is for surgical intervention today. PCP Victor Manuel Riveraer [facility] and Medicare A only MASTER TAX ADVISOR reviewed EMR Pt lives in [place] with spouse Loki. [place] when she tripped over her walker and fell and broke her hip. OR planned for today. PT/OT recs pending for tomorrow. MASTER TAX ADVISOR attempted to meet with pt in room, pt already left for OR. CM team will continue to follow for post op DCP needs. TERESA Bowers Discharge Planning/Care Management CM Discharge Assessment Start: 10/10/24 12:37 Freq: Status: Active Protocol: Document 10/10/24 12:37 SL (Rec: 10/10/24 12:38 SL [id number]) Discharge Planning Assessment Assigned Electronics Tester TERESA Tucker DPOA/Assigned Designee Name Loki, spouse Contact Information [phone] Advance Directives? No History Provided By Patient,Significant Other Prior Living Arrangements House Household Members spouse Independent with ADL's Yes Is patient alert and oriented? Yes DME Already Rented / Owned FWW / Walker Comment pending post OP PT/OT recs Discharge Plan Home Review Status In Process Please Provide Date Initial DC 10/10/24 Assessment Was Performed Next Review Type Continued Stay Review
--- NOTE | 2024-10-10 13:05 | P.OP_ITS ---
Operative Date/Time/Diagnoses Date of procedure: 10/10/24 Pre-op diagnosis: Intertrochanteric left femur fracture Procedure & Clinicians Procedure: Intramedullary nailing of left intertrochanteric femur fracture Same procedure as scheduled: Yes Surgeon: Darion Sullivan Click Yes if Unassisted: Yes Anesthesia Type: General and Local Operative Notes Estimated Blood Loss (mL): 150 Procedure in detail: Left Hip Intramedullary Nailing for Intertrochanteric Femur Fracture Implants: * Nagel [employer] Nephew 10 mm x 20 cm InterTAN nail * 95 mm proximal lag screw * 90 mm proximal compression screw * Thirty-five mm distal interlocking screw Procedure in detail: This patient presented to the hospital for hip pain and was found to have an intertrochanteric femur fracture on radiographic evaluation in the emergency de partment. ?As the on-call orthopedic surgeon I was consulted for management. ?The patient was admitted to the medicine service here at [facility] and received a preoperative evaluation to ensure that no optimization measures would be necessary to minimize the patient's risk for complications around surgery prior to proceeding with intramedullary nailing. ?After assessment from the typist as well as anesthesia the patient was deemed optimized for surgery. ?Risks and benefits were discussed. ?All questions were answered. ?Informed consent was obtained. ?The operative site on the left extremity was marked. ?The patient was taken to the operating room and transferred onto a [place] table. ?All bony prominences were padded. ?A time-out procedure was performed verifying the correct patient identity, operative site, medical comorbidities, ASA score, and medication allergies. ?Injury radiographs displaying the injured hip were displayed in the room. ?Ancef and tranexamic acid were administered. Prior to incision fluoroscopy was utilized to manipulate the fracture into an appropriate reduction. ?This involved traction and 10 degrees of internal rotation. ?Once satisfied with the radiographic appearance of the fracture on an AP hip radiograph as well as a lateral hip radiograph the patient was prepped and draped in the usual sterile fashion. ?I mapped out the start points fluoroscopically with the guidewire. ?I obtained a start point at the tip of the greater trochanter on the AP view aiming towards the lesser trochanter and centered in the greater trochanter aiming down the femoral shaft on the lateral view. ?The guidewire was inserted and an opening Reamer was utilized to gain access to the canal. ?The InterTAN nail was introduced and passed down to an appropriate depth where the interlocking screws would aim towards the center of the femur on an AP view. ?On a lateral fluoroscopic view the rotation of the C- arm was adjusted until the nail was centered in the femoral head. ?The jig was then rotated so that it would line with the nail and the femoral head in order to set the rotation of the nail. ?A guidewire was passed and evaluated to ensure appropriate center center position on both the AP and lateral fluoroscopic images to minimize tip apex distance. ?Once satisfied with the guidewire position I used the drills for the lag and compression screws for the InterTAN nail and measured the length of those. ?The compression screw utilized was 5 mm shorter than the lag screw. ?These were both inserted and correct positioning was verified fluoroscopically. ?The distal interlocking screw was inserted through the jig. ?The threaded capsular was removed proximally and final fluoroscopic images were obtained evaluating fracture reduction and implant positioning on AP and lateral views throughout the entire construct. ?I was satisfied with these radiographs. The wound was copiously irrigated. ?Local anesthesia was infiltrated throughout the wound. ?The wound was closed and a soft dressing was applied. ?The patient was transferred off of the [place] table and brought to the PACU. Postoperative plan: * Weightbearing as tolerated * Aspirin 81 mg twice per day for DVT prophylaxis * Recommend multimodal pain regimen * Physical therapy to evaluate patient mobility, home set up, and availability of assistance at home to determine appropriateness for discharge home versus subacute rehab * Anticipate that patient will eventually discharge to nursing home facility as she was using a walker before this injury and had limited mobility because of her cardiac status * Follow up in 2 weeks at [facility]
--- NOTE | 2024-10-10 13:37 | DI.RAD.S_ITS ---
PROCEDURE: XR HIP W PEL IF DONE LT 2V INDICATIONS: LEFT FX REPAIR TECHNIQUE: Intraoperative views of the hip were acquired. COMPARISON: [facility], CR, XR FEMUR LT MIN 2V, 10/09/2024, 16:54. [facility], CR, XR HIP W PEL IF DONE LT 2V, 10/09/2024, 15:50. FINDINGS: Intraoperative images demonstrate cephalomedullary fixation of a left femoral intertrochanteric fracture. IMPRESSION: Internal fixation of left femoral intertrochanteric fracture. Please see the operative report for further details. Dictated by: Jairo Blake M.D. on 10/10/2024 at 13:56 Approved by: Jairo Blake M.D. on 10/10/2024 at 13:57
[2024-10-10] MEDS: LACTATED RINGERS 1,000 ML 100 ML IV (15:06)
[2024-10-10] MEDS: ONDANSETRON 4 MG/2 ML INJ IV (16:20)
[2024-10-10] MEDS: OXYCODONE IR 5 MG TABLET PO ×2 (17:37→21:44)
[2024-10-10] MEDS: SENNOSIDES 8.6 MG TABLET 17.2 MG PO (20:52)
[2024-10-10] MEDS: ASPIRIN EC 81 MG TABLET PO (20:52)
[2024-10-10] MEDS: SPIRONOLACTONE 25 MG TABLET PO (20:52)
[2024-10-10] MEDS: DOCUSATE 100 MG CAPSULE PO (20:52)
[2024-10-10] MEDS: TOPIRAMATE 100 MG TABLET 200 MG PO (20:52)
--- NOTE | 2024-10-10 22:09 | PC.NURSE ---
Addendum entered by Barb Soria R.N. 10/11/24 06:46: 0630: Some confusion and anxiety continues, pt reaching in front of her but unable to state what for. Pt says she wants to leave and only remembers surgery when reminded. Able to gently redirect with help from , but anxiety incompletely alleviated. Addendum entered by Barb Soria R.N. 10/10/24 23:44: Rechecked patient 30 min later; pt sleeping comfortably. Addendum entered by Barb Soria R.N. 10/10/24 22:53: Received orders for PRN diphenhydramine 25mg IV or PO PRN and lorazepam 0.5mg IV PRN from MD Vincent. Administered PRN diphenhydramine 25mg IV. Patient resting comfortably, at bedside. Care continues. Addendum entered by Barb Soria R.N. 10/10/24 22:17: Addendum: inquired with re: pt's alcohol use d/t visual hallucinations, states that pt does not drink more than 1.5 drinks a night and has not had any since at least 10/08. Original Note: NOC: Upon assessment, pt reports experiencing mild visual hallucinations (bugs in the air), urticaria/scratching, and increased anxiety ('I just want to get out of here and go home,' 'I don't know what I need but I need to get this off of me now' re SpO2 monitor, slightly tearful). Pt also reports pain. Administered PRN Oxy 5mg PO. Contacted MD Vincent for new orders re: urticaria and anxiety, awaiting response. Pt resting comfortably, care continues.
[2024-10-10] MEDS: diphenhydrAMINE 50 MG/ML VIAL IV (22:45)
[2024-10-11] VITALS (10 sets, daily range): BP systolic 95–113; BP diastolic 47–64; PULSE 84–110; RESP 12–18; TEMP 36.4–36.8; O2SAT 94–97
[2024-10-11] MEDS: OXYCODONE IR 5 MG TABLET PO (04:59)
[2024-10-11] MEDS: CEFAZOLIN 2 GM/100 ML PREMIX 100 ML IV (05:01)
[2024-10-11 05:05] LABS: Add Manual Diff / Slide Review NO; Basophils Absolute Auto 0 /uL (0-100); Basophils Percent Auto 0.3 % (0-2); Eosinophils Absolute Auto 0 /uL (0-450); Eosinophils Percent Auto 0.3 % (2-4); Hematocrit 27.9 % (36-46); Hemoglobin 9.4 g/dL (12.0-16.0); Lymphocytes Absolute Auto 900 /uL (1100-4500); Lymphocytes Percent Auto 11.6 % (25-40); Mean Corpuscular HGB Conc 33.7 % (30-36); Mean Corpuscular Hemoglobin 33.1 PG (26-34); Mean Corpuscular Volume 98.2 fL (80-100); Monocytes Absolute Auto 700 /uL (0-900); Monocytes Percent Auto 8.7 % (3-14); Neutrophils Absolute Auto 6100 /uL (1500-7000); Neutrophils Percent Auto 79.1 % (50-75); Platelet Count 134 X10^3/uL (150-400); Red Blood Cell Count 2.85 X10^6/uL (4.0-5.2); Red Cell Distribution Width 13.7 % (11.6-14.8); White Blood Cell Count 7.7 X10^3/uL (4.5-11.0)
[2024-10-11 05:28] LABS: BUN Creatinine Ratio 17.4 (6-22); Blood Urea Nitrogen 21 mg/dL (7-17); Calcium 8.4 mg/dL (8.4-10.2); Carbon Dioxide 24 mmol/L (22-32); Chloride 104 mmol/L (98-107); Estimated Glomerular Filt Rate 46 mL/min (>60); Glucose 93 mg/dL (80-110); HEMOLYSIS < 15 (0-50); Potassium 3.6 mmol/L (3.4-5.1); Sodium 133 mmol/L (137-145)
[2024-10-11] MEDS: PANTOPRAZOLE DR 40 MG TABLET PO (06:23)
[2024-10-11] MEDS: LORazepam 2 MG/ML INJ 0.5 MG IV (07:06)
--- NOTE | 2024-10-11 08:05 | P.PN_ITS ---
Subjective Subjective Date Patient Seen: 10/11/24 Interval history: She is seen today to follow-up the left hip fracture repair, now postop day 1. She is more confused today according to her family but looks quite engaged and interactive. Her blood pressure medicines will be resumed. We continue to hold the diuretics. Her echocardiogram came back with an ejection fraction stable at 30-40%. The creatinine is 1.21 and the hemoglobin is 9.4. She has a Stafford catheter. Exam Vital Signs (past 8 hours): - 10/11/24 00:55 10/11/24 05:00 Temperature 97.5 F L 97.5 F L Pulse Rate 88 86 Respiratory Rate 18 18 Blood Pressure 104/58 L 102/54 L Pulse Oximetry 96 97 Oxygen Flow Rate 0 0 Fraction of Inspired Oxygen 28 SaO2/FiO2 Ratio 350 Oxygen Delivery Method Nasal Cannula Oxygen Flow Rate 0 Narrative Exam Narrative: Alert and oriented x3. No apparent distress. Very engaged with visiting family members. Heart is regular rate and rhythm without murmur Lungs are clear to auscultation bilaterally Extremities have no ankle edema. She is moderately tender on the left hip dressing without signs of dehiscence or infection. Stafford catheter is present. Objective Labs 10/11/24 04:29 10/11/24 04:29 Labs: Laboratory Results - last 24 hr 10/11/24 04:29 WBC 7.7 RBC 2.85 L Hgb 9.4 L Hct 27.9 L MCV 98.2 MCH 33.1 MCHC 33.7 RDW 13.7 Plt Count 134 L Neut % (Auto) 79.1 H Lymph % (Auto) 11.6 L Amelia % (Auto) 8.7 Eos % (Auto) 0.3 L Baso % (Auto) 0.3 Neut # (Auto) 6100 Lymph # (Auto) 900 L Amelia # (Auto) 700 Eos # (Auto) 0 Baso # (Auto) 0 Sodium 133 L Potassium 3.6 Chloride 104 Carbon Dioxide 24 BUN 21 H Creatinine 1.21 H Estimated GFR 46 L BUN/Creatinine Ratio 17.4 Glucose 93 Calcium 8.4 PFSH Medical History Coronary artery disease Hypertension Congestive heart failure Surgical History History of implantable cardiac defibrillator (ICD) Social History household members: spouse Smoking Status: Never smoker alcohol intake: current Assessment & Plan Assessment & Plan narrative: 1. Left intertrochanteric hip fracture. POD #1. Doing well. Anticipating SNF for rehab. Hgb 9.4 on 10/11/24. 2. Congestive heart failure with 35-40% ejection fraction. Continue routine medication follow closely in the postoperative period for volume overload. Plan to resume Diuretics on 10/12/24. 3. Coronary artery disease. Clinically stable. EKG and Echo reviewed. Resumed Metoprolol and Losartan on 10/11/24. 4. Hypertension. Resumed Metoprolol and Losartan on 10/11/24. 5. Hyperlipidemia. Continue routine medication. 6. SERGE/CKD. Creatinine 1.24. 7. Depression continue SSRI. 8. DVT prophylaxis: Sequential compression devices, postoperative management per Orthopedics. 9. Code status: Full code. Plan: -Post operative management per Orthopedics -follow H/H. -resume Metoprolol and Losartan -resume diuretics on 10/11/24 Time-Based Coding :: [TOTAL MINUTES] spent with patient and on the chart (including review of chart, obtaining history, exam, reviewing outside data, placing orders, documenting exam and treatment plan, and counseling patient) on [DATE].
[2024-10-11] MEDS: LOSARTAN 25 MG TABLET 12.5 MG PO (09:25)
[2024-10-11] MEDS: TOPIRAMATE 100 MG TABLET 200 MG PO ×2 (09:25→20:03)
[2024-10-11] MEDS: ACETAMINOPHEN 325 MG TABLET 650 MG PO ×2 (09:25→16:35)
[2024-10-11] MEDS: PARoxetine 20 MG TABLET 40 MG PO (09:26)
[2024-10-11] MEDS: ATORVASTATIN 20 MG TABLET 40 MG PO (09:26)
[2024-10-11] MEDS: DOCUSATE 100 MG CAPSULE PO ×2 (09:26→21:08)
[2024-10-11] MEDS: ASPIRIN EC 81 MG TABLET PO ×2 (09:26→21:08)
[2024-10-11] MEDS: POTASSIUM CHLORIDE 10 MEQ TAB PO (09:26)
[2024-10-11] MEDS: CHOLECALCIFEROL (VITAMIN D3) 1,000 UNIT TABLET 2000 UNIT PO (09:26)
[2024-10-11] MEDS: METOPROLOL ER 25 MG TABLET PO (09:27)
[2024-10-11] MEDS: polyethylene glycoL 3350 17 GM POWD.PACK PO (09:28)
--- NOTE | 2024-10-11 09:31 | PM.PNPO.1 ---
Subjective Subjective Interval history: Patient found sitting in her bed just completing her breakfast. Patient's pain is controlled with oral medication. ?Pain is localized to surgical site. ?Patient declines any new numbness or tingling at the surgical extremity. ?Patient denies any shortness of breath, dizziness, light-headedness, nausea, vomiting, fever or chills. According to patient's , she had an episode in which she saw bugs climbing on the wall. The patient's states she has been diagnosed with delirium. According to the nursing staff the patient tried to leave the bed and remove her IV. Ativan was administered and calmed her down. Exam Vital Signs (past 8 hours): - 10/11/24 05:00 10/11/24 09:25 10/11/24 09:27 Temperature 97.5 F L Pulse Rate 86 95 H 95 H Respiratory Rate 18 Blood Pressure 102/54 L 110/64 110/64 Pulse Oximetry 97 Oxygen Flow Rate 0 Fraction of Inspired Oxygen 28 SaO2/FiO2 Ratio 350 Oxygen Delivery Method Nasal Cannula Oxygen Flow Rate 0 Narrative Exam Narrative: Oriented to person and time. Has difficulty following directed instructions. Patient is able to dorsiflex and plantar flex the left ankle against resistance. Left toe great toe is grace-taped to the 2nd toe. Has been states that patient fractured her toe a week before current ground level fall. Sensation to light touch intact throughout BLE. Calves soft, compressible, nontender. Dressing placed intraoperatively CDI. SCDs on and functioning. Objective Labs 10/11/24 04:29 10/11/24 04:29 Labs: Laboratory Results - last 24 hr 10/11/24 04:29 WBC 7.7 RBC 2.85 L Hgb 9.4 L Hct 27.9 L MCV 98.2 MCH 33.1 MCHC 33.7 RDW 13.7 Plt Count 134 L Neut % (Auto) 79.1 H Lymph % (Auto) 11.6 L Butler % (Auto) 8.7 Eos % (Auto) 0.3 L Baso % (Auto) 0.3 Neut # (Auto) 6100 Lymph # (Auto) 900 L Butler # (Auto) 700 Eos # (Auto) 0 Baso # (Auto) 0 Sodium 133 L Potassium 3.6 Chloride 104 Carbon Dioxide 24 BUN 21 H Creatinine 1.21 H Estimated GFR 46 L BUN/Creatinine Ratio 17.4 Glucose 93 Calcium 8.4 [facility], [facility] Medical History Coronary artery disease Hypertension Congestive heart failure Surgical History History of implantable cardiac defibrillator (ICD) Social History household members: spouse Smoking Status: Never smoker alcohol intake: current Assessment & Plan Post-op Postoperative Procedures: Procedures Operation Date: 10/10/24 14:15 Actual Procedure Side Surgeon p intertrochanteric hip Left Darion Sullivan MD Postoperative day: 1 Postoperative plan: routine post-op care and ambulate Postoperative plan narrative: Medicine will managed discharge disposition and pre-existing cardiac and altered mental statuses. Weightbearing as tolerated Aspirin 81 mg twice per day for DVT prophylaxis Recommend multimodal pain regimen. Discontinue Dilaudid add tramadol for mid-level pain relief. Physical therapy to evaluate patient mobility, home set up, and availability of assistance at home to determine appropriateness for discharge home versus subacute rehab Anticipate that patient will eventually discharge to [facility] facility as she was using a walker before this injury and had limited mobility because of her cardiac status Follow up in 2 weeks at [facility] Orth[facility] Time Spent With Patient Time with patient: 15-24 minutes
[2024-10-11] MEDS: TRAMADOL 50 MG TABLET PO ×4 (09:55→20:01)
--- NOTE | 2024-10-11 10:20 | OT.IP.EVAL ---
Current Diagnoses Fracture of unspecified part of neck of left femur, initial encounter for closed fracture (10/09/24) Surgery Performed Operation Date: 10/10/24 14:15 Actual Procedures p intertrochanteric hip(Left) - Darion Sullivan MD Past Medical History (Last Reviewed 10/09/24 @ 20:43 by Aicha Nagel MD) Congestive heart failure Coronary artery disease Hypertension Surgical History (Last Reviewed 10/09/24 @ 20:43 by Aicha Nagel MD) History of implantable cardiac defibrillator (ICD) Occupational Therapy Inpatient Evaluation/Re-Eval M1 PT/OT-IP Prior Functional Status Start: 10/11/24 13:21 Freq: NEEDED Status: Active Protocol: Document 10/11/24 13:21 [facility] (Rec: 10/11/24 13:37 [facility] [id number]) Medical Review Prior Functional Status Mobility and Gait Pt's family states used a SPC inside and 4ww outside. Activities of Daily Living and IADL's Pt's assisted to wash in the sink and did IADL's. Prior Functional Level (Other details) Pt's family insistent pt to go home versus rehab at this time. Social History Household Members spouse Living Arrangements House Number of Floors (Floors) One Floor Number of Stairs To Enter/Railing? NO steps to enter. Home Environment Standard Height Toilet,Walk in Shower,Built-In Shower Seat Home Equipment Four Wheel Walker,Straight Cane,Raised Toilet Seat w/ Armrests,Hand Held Shower,Grab Bars In Shower M2 OT-IP Current Condition Start: 10/11/24 13:21 Freq: Status: Active Protocol: Document 10/11/24 13:21 [facility] (Rec: 10/11/24 13:37 [facility] [id number]) Occupational Therapy Current Condition Current Condition Evaluation Date 10/11/24 Treatment Diagnosis L hip fx, S/P ORIF Diagnosis Onset Date 10/09/24 Weight Bearing Status Weight Bearing Status Weight Bear as Tolerated M3 OT- IP Subjective and Pain Start: 10/11/24 13:21 Freq: Status: Active Protocol: Document 10/11/24 13:21 [facility] (Rec: 10/11/24 13:37 [facility] [id number]) OT- Subjective Occupational Therapy Visit Type Type Initial Evaluation Visit Start Time 09:15 Visit Stop Time 10:20 Occupational Therapy Visit Comments Patient Comments Pt needing encouragement and agreed to try to get out of bed. Pt family present. Patient/Caregiver Goals To go home. OT Pain Assessment Pain When Pain Assessed At Rest Pain Present Pain Present Pain Reported Location Left Hip Intensity 8 Scale Used Numeric (0 - 10) M4 OT- IP ADL's Start: 10/11/24 13:21 Freq: Status: Active Protocol: Document 10/11/24 13:21 [facility] (Rec: 10/11/24 13:37 [facility] [id number]) OT [id number] Comments OT Self-Feeding Comments Not at meal time. Pt able to drink out of a cup. OT ADL-Grooming Comments OT Grooming Comments Not performed as too tired. OT ADL-Oral Care Comments Oral Care Comments NOt performed OT ADL-Dressing General Eval Upper Body Dressing Ability Moderate Assistance Lower Body Dressing Ability Maximum Assistance Areas Needing Assistance Socks Comments OT Dressing Comments Pt will need assist and also LB dressing equipment to assist. OT ADL-Toileting General Evaluation Toileting Ability Total Assistance Areas Needing Assistance Empty Catheter or Colostomy Comments OT Toileting Comments Stafford in place. Pt will benefit from a BSC at home. OT ADL-Bathing Comments OT Bathing Comments Sponge bath more appropriate at this time. Pt will benefit from a shower chair. M5 OT- IP IADL's Start: 10/11/24 13:21 Freq: Status: Active Protocol: Document 10/11/24 13:21 [facility] (Rec: 10/11/24 13:37 [facility] [id number]) OT-Instrumental Activities of Daily Living Home Safety Awareness Awareness of Need for Assistance at Home Decreased Awareness Ability to Problem Solve Emergency Unable to Problem Solve Situations Home Safety Comments Pt is groggy and confused at this time. Medication Management Medication Management Caregiver Administers Money Management Money Management Caregiver Provides Assistance Meal Preparation Meal Preparation Caregiver Provides Assist Metal Coater Operator Metal Coater Operator Caregiver Provides Assist Driving Driving Caregiver Provides Assist M6 OT- IP Functional Cognition Start: 10/11/24 13:21 Freq: Status: Active Protocol: Document 10/11/24 13:21 [facility] (Rec: 10/11/24 13:37 [facility] [id number]) Cognitive Factors Limiting Selfcare Function Cognitive Ability Level of Alertness Confusional State,Drowsy Patient Orientation Name Ability to Follow Commands Able to Follow One Step Commands with Increased Time, Able to Follow One Step Commands with Repetition Memory Description Short Term Impaired Cognitive Comments Cognitive Assessment Comments Pt mainly orientated to her name and very groggy. Pt needing lots of encouragement and rest breaks. Pt having difficulty to follow commands at this time. OT- Vision and Hearing OT- Hearing Assessment OT- Hearing Assessment WFL OT- Vision Assessment Visual Acuity Glasses For Reading M7 OT- IP Mobility and Balance Start: 10/11/24 13:21 Freq: Status: Active Protocol: Document 10/11/24 13:21 [facility] (Rec: 10/11/24 13:37 [facility] [id number]) OT- Bed Mobility Assessment Supine to Sit Supine to Sit Assist Maximum Assistance,Total Assistance,2 Person Assistance OT-Transfer Assessment Comments Mobility Comments Pt needing assist initially to help slide her RLE and then after awhile able to move some on her own. LLE needing assist for all movements. Pt needing heavy use of green sheet to help slide her hips over to the side. Pt needing 40 minutes to be able to get her LLE off the bed and trunk partially upright before wanting to lie back down as in too much pain. Went over leg exercises for pt in bed and able to practice. Pt very guarded in her movements. OT- Balance Assessment Sitting Balance and Reactions Static Sitting Balance Ability Poor M8 OT- IP Objective Assessments Start: 10/11/24 13:21 Freq: Status: Active Protocol: Document 10/11/24 13:21 [facility] (Rec: 10/11/24 13:37 [facility] [id number]) OT Gross Range of Motion Upper Extremity Range of Motion Assessment Within Functional Limits OT Strength Comments Strength Comments BUE at least 4/5 OT- Coordination Assessment Upper Extremity Finger to Nose Test Within Functional Limits M9 OT- IP Assessment and Plan Start: 10/11/24 13:21 Freq: Status: Active Protocol: Document 10/11/24 13:21 [facility] (Rec: 10/11/24 13:37 [facility] [id number]) OT Summary Assessment and Plan Potential Rehabilitation Potential Good Analytic Complexity at Evaluation Moderate Summary OT Impairments Pain,Range of Motion,Strength, Balance,Functional Cognition, Functional Mobility,Self- Feeding,Grooming,Dressing, Toileting,Bathing,Toilet Transfers,Shower Transfers, Activity Tolerance Progress Towards Goals Slow Progress due to Pain,Slow Progress due to Medical Issues,Slow Progress due to Activity Tolerance,Slow Progress due to Cognition Assessment Summary Pt MOD complexity and main barriers are pain, decreased mobility for LLE and needing extensive two person assist for bed mobility at this time. Pt is also a bit groggy and having difficulty to follow commands. Pt's family insistent to take her home, however at this time best to go to skilled rehab.Able to go over equipment needs with family. Goals Self-Feeding Goal Independent Grooming Goal Independent Dressing Goal Moderate Assistance Toileting Goal Minimal Assistance Bathing Goal Minimal Assistance Toilet Transfer Goal Minimal Assistance Shower Transfer Goal Moderate Assistance Days to Meet Goals 30 Frequency of Treatment Other frequency 5x/week Treatment Plan OT Treatment Plan ADL Training,Functional Cognition Training,Functional Mobility,Patient/Family Education,Discharge Planning Other Treatment Recommendations and Next Transfer with FWW MAX X 2 Treatment Focus Discharge Recommendations OT Discharge Recommendations SNF Rehab Transportation Needs at Discharge Wheelchair/Cabulance,Stretcher /Ambulance
--- NOTE | 2024-10-11 11:50 | PT.IIE ---
Current Diagnoses Fracture of unspecified part of neck of left femur, initial encounter for closed fracture (10/09/24) Surgery Performed Operation Date: 10/10/24 14:15 Actual Procedures p intertrochanteric hip(Left) - Darion Sullivan MD Surgical History (Last Reviewed 10/09/24 @ 20:43 by Aicha Nagel MD) History of implantable cardiac defibrillator (ICD) Medical History (Last Reviewed 10/09/24 @ 20:43 by Aicha Nagel MD) Congestive heart failure Coronary artery disease Hypertension Physical Therapy Inpatient Evaluation/Re-Eval M1 PT/OT-IP Prior Functional Status Start: 10/11/24 14:39 Freq: NEEDED Status: Active Protocol: Document 10/11/24 11:50 [facility] (Rec: 10/11/24 14:55 AB [id number]) Medical Review Prior Functional Status Medical History Reviewed Yes Communication able to follow one step commands but inconsistent Mobility and Gait pt able to provide PLOF and home set up infor and family clarified info pt provided: pt stated that she was modified independent with all mobilities using a quad cane for indoor mobiltiy and a 4WW for outdoor mobility; daughter stated that spouse usually assists pt for sit to stand Activities of Daily Living and IADL's per OT note: Pt's assisted to wash in the sink and did IADL's. Social History Household Members spouse Living Arrangements House Number of Floors (Floors) One Floor Number of Stairs To Enter/Railing? No steps to enter. Home Environment Standard Height Toilet,Walk in Shower,Built-In Shower Seat Home Equipment Four Wheel Walker,Quad Cane, Raised Toilet Seat w/Armrests, Hand Held Shower,Grab Bars In Shower Additional Social History Comment pt lives with her spouse but 2 daughters and 1 son will be rotating to stay with pt to also assist M2 PT-IP Current Condition Start: 10/11/24 14:39 Freq: NEEDED Status: Active Protocol: Document 10/11/24 11:50 [facility] (Rec: 10/11/24 14:55 AB [id number]) Physical Therapy Current Condition Current Condition Evaluation Date 10/11/24 Treatment Diagnosis L femur fx s/p ORIF; difficulty in walking Onset Date 10/09/24 M3 PT-IP Subjective Start: 10/11/24 14:39 Freq: NEEDED Status: Active Protocol: Document 10/11/24 11:50 [facility] (Rec: 10/11/24 14:55 AB [id number]) Subjective Physical Therapy Visit Type Type Initial Evaluation Visit Start Time 11:50 Visit Stop Time 12:40 Number of DRYWALL HANGER Visits 0 Physical Therapy Visit Comments Patient Comments agreeable to do PT Therapy Pain Assessment Pain When Pain Assessed During Mobility Pain Present Pain Present Pain Reported Location Left Hip Scale Used pain scale not stated Pain Management Techniques Apply Cold,Distraction, Modification of Treatment,Re- positioning,Timing of Activity with Medications M4 PT-IP Mobility and Gait Start: 10/11/24 14:39 Freq: NEEDED Status: Active Protocol: Document 10/11/24 11:50 [facility] (Rec: 10/11/24 14:55 AB [id number]) PT-Bed Mobility Assessment Supine to Sit Supine to Sit Maximum Assistance,1 Person Assistance,2 Person Assistance ,Head of Bed Elevated,Bedrails Scooting Scooting to Edge of Bed Maximum Assistance PT-Transfer Assessment Sit to and From Stand Sit to and from Stand Maximum Assistance,2 Person Assistance,Use of Upper Extremities Equipment Transfer Assistive Device Gait Belt,Front Wheeled Walker Orthotic/Prosthetic Devices or Brace: No Transfers Transfer Destination Chair Transfer Technique Stand Pivot Transfer Ability Level of Assist Maximum Assistance,2 Person Assistance,Use of Upper Extremities Comments Mobility Comments checked on pt this morning and pt's spouse wants PT to come back due to pt's pain but nurse stated that pt already had pain meds ~ 40 mins earlier. checked back on pt and daughter in room and agreed to do PT. obtained PLOF and home set up. family tends to speak for pt. BP supine: 109/ 72 pt completed supine to sit max A and max cues. able to sit on EOB mod to max A for sitting balance. pt with increase retrolean. pt gets anxious easily and with confusion. needs motivation and reassurance during PT session. family tends to overstep and instruct pt. informed family to give pt time to process due to confusion and anxiety. pt c/o dizziness in sitting on EOB. BP checked: 121/78. completed sit to stand x 2 requiring max A x 2 and max cues. unable to stand long enough to transfer. assisted pt with stand pivot transfer max A x 2 and max cues with PT in front of pt and NAC behind . positioned pt on the chair. call light and table placed within reach. pt set up for lunch. informed pt's daughter regarding pt's mobility level and assistance needed and SNF recommendation at this time. daughter stated that she will talk to pt's spouse and family . Gait Assessment Comments Gait Comments unable at this time PT-Balance Assessment Sitting Balance and Reactions Static Sitting Balance Ability Fair Dynamic Sitting Balance Ability Poor Standing Balance and Reactions Static Standing Balance Ability Poor Dynamic Standing Balance Ability Poor Device Used FWW M5 PT-IP Objective Assessments Start: 10/11/24 14:39 Freq: NEEDED Status: Active Protocol: Document 10/11/24 11:50 [facility] (Rec: 10/11/24 14:55 AB [id number]) Orientation Orientation/Cognition Level of Alertness Alert Orientation Name,Place,Situation Language Function Ability No Deficits Noted Safety Awareness Decreased Safety Awareness Memory Description Short Term Impaired,Python Developer Impaired Gross Range of Motion Lower Extremity ROM Assessment Within Functional Limits Strength Lower Extremity Strength Assessment Bilaterally Impaired Hip 3-/5 Knee 3+/5 Muscle Tone Muscle Tone WNL Yes M6 PT-IP Treatment Start: 10/11/24 14:39 Freq: NEEDED Status: Active Protocol: Document 10/11/24 11:50 AB (Rec: 10/11/24 14:55 AB [id number]) Physical Therapy Treatment Exercises Exercises Heel Slides Education Education Provided Precautions,Weight Bearing Status,Post-Op Packet,Safety M7 PT-IP Assessment and Plan Start: 10/11/24 14:39 Freq: NEEDED Status: Active Protocol: Document 10/11/24 11:50 AB (Rec: 10/11/24 14:55 AB [id number]) PT Summary Assessment and Plan Potential Rehabilitation Potential Fair Status of Condition at Evaluation Evolving Summary Impairments Pain,ROM,Strength,Balance, Coordination,Sensation,Tone, Cognition,Bed Mobility, Transfers,Gait,Activity Tolerance Assessment Summary pt is a 74 y/o F s/p fall and sustain a L femur fx. pt underwent L hip intramedullary nailing POD 1. pt is WBAT on LLE. pt requiring max A x 2 with stand pivot transfers. recommeding using a mechanical lift transfer with nursing staff. pt will require 24/7 assist of 2 person. pt will need SNF rehab to improve overall strength and function. will continue to assess progress. Goals Bed Mobility Goal Minimal Assistance Transfer Goal Minimal Assistance,Front Wheeled Walker Gait Goal Minimal Assistance,Front Wheel Walker Gait Distance 25 Other Goals improve bed mobility, transfers, ambulation using FWW ~ 100 ft SBA Days to Meet Goals 10 Frequency of Treatment Other frequency 1-2x/day Treatment Plan Physical Therapy Treatment Plan Bed Mobility Training,Transfer Training,Gait Training, Therapeutic Exercise,Balance Retraining,Post Op Education, Discharge Planning,Hot or Cold Pack,Neuromuscular Re-ed, Coordination Retraining,Manual Therapy Weight Bearing Status Weight Bearing Status Weight Bear as Tolerated Allowed Weight Bearing Amount (enter % LLE WBAT or #) (%) Recommendations To Nursing Amount of Assist Needed Mechanical Lift Discharge Recommendations PT Discharge Recommendations SNF Rehab Transportation Needs at Discharge Wheelchair/Cabulance,Stretcher /Ambulance
--- NOTE | 2024-10-11 15:39 | PT.IPTN ---
Addendum entered and electronically signed by Joanna Navas 10/12/24 08:52: Treatment note, not discharge summary Original Note: Current Diagnoses Fracture of unspecified part of neck of left femur, initial encounter for closed fracture (10/09/24) Surgery Performed Operation Date: 10/10/24 14:15 Actual Procedures p intertrochanteric hip(Left) - Darion Sullivan MD Physical Therapy Treatment Note M2 PT-IP Current Condition Start: 10/11/24 14:39 Freq: NEEDED Status: Active Protocol: Document 10/11/24 15:25 AB (Rec: 10/11/24 15:39 AB [id number]) Physical Therapy Current Condition Current Condition Evaluation Date 10/11/24 Treatment Diagnosis L femur fx s/p ORIF; difficulty in walking Onset Date 10/09/24 M3 PT-IP Subjective Start: 10/11/24 14:39 Freq: NEEDED Status: Active Protocol: Document 10/11/24 15:25 AB (Rec: 10/11/24 15:39 AB [id number]) Subjective Physical Therapy Visit Type Type Discharge Summary Visit Start Time 14:59 Visit Stop Time 15:23 Number of TRANSFORMER INSPECTOR Visits 1 Physical Therapy Visit Comments Patient Comments Patient rates L hip pain 8/10 start of session. Patient agreeable to try to stand. Therapy Pain Assessment Pain When Pain Assessed At Rest Pain Present Pain Present Pain Reported Location Left Hip Intensity 8 Scale Used Numeric (0 - 10) M4 PT-IP Mobility and Gait Start: 10/11/24 14:39 Freq: NEEDED Status: Active Protocol: Document 10/11/24 15:25 AB (Rec: 10/11/24 15:39 AB [id number]) PT-Transfer Assessment Sit to and From Stand Sit to and from Stand Maximum Assistance,2 Person Assistance,Use of Upper Extremities Equipment Transfer Assistive Device Gait Belt,Front Wheeled Walker Orthotic/Prosthetic Devices or Brace: No Comments Mobility Comments Increased verbal cues for hand placement, to push up from chair, then when to reach for FWW also to reach for chair when descending. Performed X 2 , Patient reported feeling dizzy first trial sit to stand , BP seated 103/51 HR 64, FWW adjusted lower, second trial sit to stand, Patient unable march in place ie raise left LE, but did attempted, Patient hyperventilating and instructed to sit. BP initited in standing, but didn 't register until seated, 68/ 33 HR 47, Nursing into session and made aware. Patient further reclined LE's above heart. BP prior to leaving session 115/53 HR 70. Family instructed to encourage patient to use call light, Spouse reports he will not leave patient. Gait Assessment Comments Gait Comments unable at this time PT-Balance Assessment Sitting Balance and Reactions Static Sitting Balance Ability Poor Dynamic Sitting Balance Ability Poor Standing Balance and Reactions Static Standing Balance Ability Poor Dynamic Standing Balance Ability Poor Device Used FWW M5 PT-IP Objective Assessments Start: 10/11/24 14:39 Freq: NEEDED Status: Active Protocol: Document 10/11/24 15:25 AB (Rec: 10/11/24 15:39 AB [id number]) Orientation Orientation/Cognition Level of Alertness Alert Orientation Name,Place,Situation Language Function Ability No Deficits Noted Safety Awareness Decreased Safety Awareness Memory Description Short Term Impaired,Hot Dipper Impaired Gross Range of Motion Lower Extremity ROM Assessment Within Functional Limits Strength Lower Extremity Strength Assessment Bilaterally Impaired Hip 3-/5 Knee 3+/5 Muscle Tone Muscle Tone WNL Yes M6 PT-IP Treatment Start: 10/11/24 14:39 Freq: NEEDED Status: Active Protocol: Document 10/11/24 15:25 AB (Rec: 10/11/24 15:39 AB [id number]) Physical Therapy Treatment Education Education Provided Precautions,Weight Bearing Status,Post-Op Packet,Safety M7 PT-IP Assessment and Plan Start: 10/11/24 14:39 Freq: NEEDED Status: Active Protocol: Document 10/11/24 15:25 AB (Rec: 10/11/24 15:39 AB [id number]) PT Summary Assessment and Plan Potential Rehabilitation Potential Fair Status of Condition at Evaluation Evolving Summary Impairments Pain,ROM,Strength,Balance, Coordination,Sensation,Tone, Cognition,Bed Mobility, Transfers,Gait,Activity Tolerance Assessment Summary pt is a 74 y/o F s/p fall and sustain a L femur fx. pt underwent L hip intramedullary nailing POD 1. pt is WBAT on LLE. Patient continues to require 2 person assist for functional mobility. Unable to lift Left LE fully in standing for marching in place this session. Complaints of dizziness, decreased BP with sit to stand limiting this session. Nursing, Jem into session end of session. Goals Bed Mobility Goal Minimal Assistance Transfer Goal Minimal Assistance,Front Wheeled Walker Gait Goal Minimal Assistance,Front Wheel Walker Gait Distance 25 Other Goals improve bed mobility, transfers, ambulation using FWW ~ 100 ft SBA Days to Meet Goals 10 Frequency of Treatment Other frequency 1-2x/day Treatment Plan Physical Therapy Treatment Plan Bed Mobility Training,Transfer Training,Gait Training, Therapeutic Exercise,Balance Retraining,Post Op Education, Discharge Planning,Hot or Cold Pack,Neuromuscular Re-ed, Coordination Retraining,Manual Therapy Weight Bearing Status Weight Bearing Status Weight Bear as Tolerated Allowed Weight Bearing Amount (enter % LLE WBAT or #) (%) Recommendations To Nursing Amount of Assist Needed 2 Person Assist Discharge Recommendations PT Discharge Recommendations SNF Rehab Transportation Needs at Discharge Wheelchair/Cabulance,Stretcher /Ambulance
[2024-10-11] MEDS: SODIUM CHLORIDE 0.9% 1,000 ML 250 ML IV (17:22)
[2024-10-11] MEDS: SENNOSIDES 8.6 MG TABLET 17.2 MG PO (20:02)
[2024-10-12] VITALS (8 sets, daily range): BP systolic 102–123; BP diastolic 52–64; PULSE 72–99; RESP 16–20; TEMP 35.8–36.7; O2SAT 94–99
[2024-10-12] MEDS: PANTOPRAZOLE DR 40 MG TABLET PO (05:55)
--- NOTE | 2024-10-12 07:45 | P.PN_ITS ---
Subjective Subjective Date Patient Seen: 10/12/24 Interval history: She is seen to follow up for hypertension, cardiomyopathy, hip fracture and anemia. She continues with a Stafford catheter. Family are very motivated to mobilize her. She is likely heading for a [facility] rehab stay. Her baseline is gait problems so has been using a walker outside the house. Exam Vital Signs (past 8 hours): - 10/12/24 01:00 10/12/24 05:00 Temperature 97.9 F 98.1 F Pulse Rate 99 H 98 H Respiratory Rate 18 18 Blood Pressure 112/64 104/58 L Pulse Oximetry 94 94 Oxygen Flow Rate 0 0 Fraction of Inspired Oxygen 28 SaO2/FiO2 Ratio 350 Oxygen Delivery Method Nasal Cannula Oxygen Flow Rate 0 Narrative Exam Narrative: Alert and oriented x3. No apparent distress. Diffusely weak. Multiple family members closely attending to her. Heart is regular rate and rhythm without murmur Lungs are clear to auscultation bilaterally Abdomen is soft, bowel sounds positive, nontender, no organomegaly Extremities have no ankle edema. Left lateral hip incision healing. Bilateral purplish chin bruises again noted today. Objective Labs 10/11/24 04:29 10/11/24 04:29 [facility] Medical History Coronary artery disease Hypertension Congestive heart failure Surgical History History of implantable cardiac defibrillator (ICD) Social History household members: spouse Smoking Status: Never smoker alcohol intake: current Assessment & Plan Assessment & Plan narrative: 1. Left intertrochanteric hip fracture. POD #12. Doing well. Anticipating SNF for rehab. Hgb 9.4 on 10/11/24. 2. Congestive heart failure with 35-40% ejection fraction. Continue routine medication follow closely in the postoperative period for volume overload. Resume Diuretics on 10/12/24. 3. Coronary artery disease. Clinically stable. EKG and Echo reviewed. Resumed Metoprolol and Losartan on 10/11/24. 4. Hypertension. Resumed Metoprolol and Losartan on 10/11/24. 5. Hyperlipidemia. Continue routine medication. 6. SERGE/CKD. Creatinine 1.24. 7. Depression continue SSRI. 8. DVT prophylaxis: Sequential compression devices, postoperative management per Orthopedics. 9. Code status: Full code. Plan: -Post operative management per Orthopedics -follow H/H. -resumed Metoprolol and Losartan -resume diuretics today. Time-Based Coding :: [TOTAL MINUTES] spent with patient and on the chart (including review of chart, obtaining history, exam, reviewing outside data, placing orders, documenting exam and treatment plan, and counseling patient) on [DATE].
[2024-10-12] MEDS: TOPIRAMATE 100 MG TABLET 200 MG PO ×2 (09:20→20:35)
[2024-10-12] MEDS: METOPROLOL ER 25 MG TABLET PO (09:20)
[2024-10-12] MEDS: PARoxetine 20 MG TABLET 40 MG PO (09:21)
[2024-10-12] MEDS: TRAMADOL 50 MG TABLET PO ×3 (09:21→17:52)
[2024-10-12] MEDS: CHOLECALCIFEROL (VITAMIN D3) 1,000 UNIT TABLET 2000 UNIT PO (09:21)
[2024-10-12] MEDS: POTASSIUM CHLORIDE 10 MEQ TAB PO (09:21)
[2024-10-12] MEDS: ASPIRIN EC 81 MG TABLET PO ×2 (09:21→20:35)
[2024-10-12] MEDS: ATORVASTATIN 20 MG TABLET 40 MG PO (09:21)
[2024-10-12] MEDS: ACETAMINOPHEN 325 MG TABLET 650 MG PO ×2 (09:22→15:29)
[2024-10-12] MEDS: LOSARTAN 25 MG TABLET 12.5 MG PO (09:23)
--- NOTE | 2024-10-12 10:29 | OT.IP.TRT ---
Current Diagnoses Fracture of unspecified part of neck of left femur, initial encounter for closed fracture (10/09/24) Surgery Performed Operation Date: 10/10/24 14:15 Actual Procedures p intertrochanteric hip(Left) - Darion Sullivan MD Occupational Therapy Treatment Note M2 OT-IP Current Condition Start: 10/11/24 13:21 Freq: Status: Active Protocol: Document 10/11/24 13:21 [facility] (Rec: 10/11/24 13:37 [facility] [id number]) Occupational Therapy Current Condition Current Condition Evaluation Date 10/11/24 Treatment Diagnosis L hip fx, S/P ORIF Diagnosis Onset Date 10/09/24 Weight Bearing Status Weight Bearing Status Weight Bear as Tolerated M3 OT- IP Subjective and Pain Start: 10/11/24 13:21 Freq: Status: Active Protocol: Document 10/12/24 10:32 [facility] (Rec: 10/12/24 10:45 [facility] [id number]) OT- Subjective Occupational Therapy Visit Type Type Treatment Note Visit Start Time 09:50 Visit Stop Time 10:29 Occupational Therapy Visit Comments Patient Comments Pt agreed to get up and states needing to have a bowel movement. Patient/Caregiver Goals To go home. OT Pain Assessment Pain When Pain Assessed At Rest Pain Present Pain Present Pain Reported Location Left Hip Intensity 8 Scale Used Numeric (0 - 10) M4 OT- IP ADL's Start: 10/11/24 13:21 Freq: Status: Active Protocol: Document 10/12/24 10:32 [facility] (Rec: 10/12/24 10:45 [facility] [id number]) OT [id number] Comments OT Self-Feeding Comments Not at meal time. Pt able to drink out of a cup. OT ADL-Grooming General Evaluation Grooming Ability Moderate Assistance Comments OT Grooming Comments Pt needing assist to brush the back of her head. OT ADL-Oral Care Comments Oral Care Comments NOt performed OT ADL-Dressing General Eval Lower Body Dressing Ability Total Assistance Areas Needing Assistance Socks OT ADL-Toileting General Evaluation Toileting Ability Total Assistance Areas Needing Assistance Empty Catheter or Colostomy, Manage Clothing,Perform Perineal Hygiene Comments OT Toileting Comments MAX A x2 to stand with FWW while nursing assisting with hygiene needs. OT ADL-Bathing Comments OT Bathing Comments Sponge bath more appropriate at this time. M5 OT- IP IADL's Start: 10/11/24 13:21 Freq: Status: Active Protocol: Document 10/11/24 13:21 [facility] (Rec: 10/11/24 13:37 [facility] [id number]) OT-Instrumental Activities of Daily Living Home Safety Awareness Awareness of Need for Assistance at Home Decreased Awareness Ability to Problem Solve Emergency Unable to Problem Solve Situations Home Safety Comments Pt is groggy and confused at this time. Medication Management Medication Management Caregiver Administers Money Management Money Management Caregiver Provides Assistance Meal Preparation Meal Preparation Caregiver Provides Assist Social Worker Social Worker Caregiver Provides Assist Driving Driving Caregiver Provides Assist M6 OT- IP Functional Cognition Start: 10/11/24 13:21 Freq: Status: Active Protocol: Document 10/12/24 10:32 [facility] (Rec: 10/12/24 10:45 [facility] [id number]) Cognitive Factors Limiting Selfcare Function Cognitive Ability Level of Alertness Alert Patient Orientation Name Ability to Follow Commands Able to Follow One Step Commands with Increased Time, Able to Follow One Step Commands with Repetition Memory Description Short Term Impaired Cognitive Comments Cognitive Assessment Comments Pt continues to be a bit anxious and needing step by step commands to relax, take deep breaths. M7 OT- IP Mobility and Balance Start: 10/11/24 13:21 Freq: Status: Active Protocol: Document 10/12/24 10:32 [facility] (Rec: 10/12/24 10:45 [facility] [id number]) OT- Bed Mobility Assessment Supine to Sit Supine to Sit Assist Maximum Assistance,2 Person Assistance Scooting Scooting to Edge of Bed Maximum Assistance,2 Person Assistance OT-Transfer Assessment Sit to and From Stand Sit to and from Stand Maximum Assistance,2 Person Assistance Transfers Transfer Ability Maximum Assistance,2 Person Assistance Technique Transfer Destination Bed,Bedside Commode,Chair Transfer Technique Stand Step Pivot Devices Transfer Assistive Devices Gait Belt,Front Wheeled Walker Comments Mobility Comments Pt able to bend her right leg and push on the bed to assist to move her hips along with assist from the green pad. Pt able to allow OT to move her RLE more today for bed mobility needs. MAX AX 2 to get to the edge of the bed. MAX AX 1 to scoot to the edge of the bed with the green pad. MAX AX 2 to stand to the FWW and third person to assist to hold the FWW in place. Pt able to take a few steps to the BSC. Pt able to stand with MAX AX 2 with FWW and BSC switched to the recliner. BP /50, sitting 109/88 after transfer 137/81 , 132/72 and in the recliner 112/51. Pt's O2 on RA mid low 80's and needing vc to slow down her breathing and placed O2 on 2L and up to 95%. Able to notify nursing aid O2 placed on her. OT- Balance Assessment Sitting Balance and Reactions Static Sitting Balance Ability Poor Dynamic Sitting Balance Ability Poor Standing Balance and Reactions Static Standing Balance Ability Poor Dynamic Standing Balance Ability Poor M8 OT- IP Objective Assessments Start: 10/11/24 13:21 Freq: Status: Active Protocol: Document 10/11/24 13:21 [facility] (Rec: 10/11/24 13:37 [facility] [id number]) OT Gross Range of Motion Upper Extremity Range of Motion Assessment Within Functional Limits OT Strength Comments Strength Comments BUE at least 4/5 OT- Coordination Assessment Upper Extremity Finger to Nose Test Within Functional Limits M9 OT- IP Assessment and Plan Start: 10/11/24 13:21 Freq: Status: Active Protocol: Document 10/12/24 10:32 [facility] (Rec: 10/12/24 10:45 [facility] [id number]) OT Summary Assessment and Plan Potential Rehabilitation Potential Good Analytic Complexity at Evaluation Moderate Summary OT Impairments Pain,Range of Motion,Strength, Balance,Functional Cognition, Functional Mobility,Self- Feeding,Grooming,Dressing, Toileting,Bathing,Toilet Transfers,Shower Transfers, Activity Tolerance Progress Towards Goals Progressing Toward Goals,Slow Progress due to Pain,Slow Progress due to Activity Tolerance,Slow Progress due to Cognition Assessment Summary Pt able to tolerate [place] [facility] [place] then recliner today for bowel movement. Pt still needing extensive two person assist and best for the staff to do len lift at this time. Pt at this current level still recommend SNF , but family still insisting on home with 24/7 and . Goals Self-Feeding Goal Independent Grooming Goal Independent Dressing Goal Moderate Assistance Toileting Goal Minimal Assistance Bathing Goal Minimal Assistance Toilet Transfer Goal Minimal Assistance Shower Transfer Goal Moderate Assistance Days to Meet Goals 29 Frequency of Treatment Other frequency 5x/week Treatment Plan OT Treatment Plan ADL Training,Functional Cognition Training,Functional Mobility,Patient/Family Education,Discharge Planning Other Treatment Recommendations and Next Transfer with FWW MOD/MAX X 2 Treatment Focus [place] [facility] Discharge Recommendations OT Discharge Recommendations SNF Rehab Transportation Needs at Discharge Wheelchair/Cabulance
--- NOTE | 2024-10-12 10:36 | PT.IPTN ---
Current Diagnoses Fracture of unspecified part of neck of left femur, initial encounter for closed fracture (10/09/24) Surgery Performed Operation Date: 10/10/24 14:15 Actual Procedures p intertrochanteric hip(Left) - Darion Sullivan MD Physical Therapy Treatment Note M2 PT-IP Current Condition Start: 10/11/24 14:39 Freq: NEEDED Status: Active Protocol: Document 10/12/24 10:24 AB (Rec: 10/12/24 10:36 AB [id number]) Physical Therapy Current Condition Current Condition Evaluation Date 10/11/24 Treatment Diagnosis L femur fx s/p ORIF; difficulty in walking Onset Date 10/09/24 M3 PT-IP Subjective Start: 10/11/24 14:39 Freq: NEEDED Status: Active Protocol: Document 10/12/24 10:24 AB (Rec: 10/12/24 10:36 AB [id number]) Subjective Physical Therapy Visit Type Type Treatment Note Visit Start Time 10:04 Visit Stop Time 10:18 Number of CRYPTOGRAPHIC TECHNICIAN Visits 2 Physical Therapy Visit Comments Patient Comments Patient seated on edge of bed with OT start of session. Patient complaining of increased pain, then reports having a BM agreeable to transfer to commode. Therapy Pain Assessment Pain When Pain Assessed During Weight Bearing Pain Present Pain Present Denied Pain M4 PT-IP Mobility and Gait Start: 10/11/24 14:39 Freq: NEEDED Status: Active Protocol: Document 10/12/24 10:24 AB (Rec: 10/12/24 10:36 AB [id number]) PT-Transfer Assessment Sit to and From Stand Sit to and from Stand Maximum Assistance,2 Person Assistance,Use of Upper Extremities Equipment Transfer Assistive Device Gait Belt,Front Wheeled Walker Orthotic/Prosthetic Devices or Brace: No Transfers Transfer Destination Bedside Commode Transfer Ability Level of Assist Maximum Assistance,2 Person Assistance,Use of Upper Extremities Comments Mobility Comments Transfers bed to commode with FWW very small short steps X4 with increased verbal cues throughout to step to chair MAX assist of 2 sit to stand X 2( from bed and from commode) MOD assist 2 to hold in standing with patient holding FWW. Reports dizzy in standing post standing with nursing in for cleaning due to BM. BP taken once seated 112/56 HR 74 BPM. When questioned regarding pain in standing patient commented she was good. Gait Assessment Gait Gait Assistance Required: Maximum Assistance,2 Person Assist Distance (Feet) 1 Able to Maintain Weight Bearing Status Yes During Gait Assistive Devices Assistive Device Front Wheeled Walker Orthotic/Prosthetic Devices or Brace: No Gait Deviations General Gait Pattern Antalgic,Decreased Stride Length,Decreased Feet Clearance,Step-to Gait Factors Limiting Gait Function Factors Limiting Gait Function Limited Range of Motion,Poor Balance,Poor Safety Awareness Comments Gait Comments Very small steps shuffling pattern PT-Balance Assessment Sitting Balance and Reactions Static Sitting Balance Ability Poor Dynamic Sitting Balance Ability Poor Standing Balance and Reactions Static Standing Balance Ability Poor Dynamic Standing Balance Ability Poor Device Used FWW M5 PT-IP Objective Assessments Start: 10/11/24 14:39 Freq: NEEDED Status: Active Protocol: Document 10/12/24 10:24 AB (Rec: 10/12/24 10:36 AB [id number]) Orientation Orientation/Cognition Level of Alertness Alert Orientation Name,Birthday,Month,Year, Situation Language Function Ability No Deficits Noted Safety Awareness Decreased Safety Awareness Memory Description Short Term Impaired,Flaking Roll Operator Impaired Muscle Tone Muscle Tone WNL Yes M6 PT-IP Treatment Start: 10/11/24 14:39 Freq: NEEDED Status: Active Protocol: Document 10/11/24 15:25 AB (Rec: 10/11/24 15:39 AB [id number]) Physical Therapy Treatment Education Education Provided Precautions,Weight Bearing Status,Post-Op Packet,Safety M7 PT-IP Assessment and Plan Start: 10/11/24 14:39 Freq: NEEDED Status: Active Protocol: Document 10/12/24 10:24 AB (Rec: 10/12/24 10:36 AB [id number]) PT Summary Assessment and Plan Potential Rehabilitation Potential Fair Status of Condition at Evaluation Evolving Summary Impairments Pain,ROM,Strength,Balance, Coordination,Sensation,Tone, Cognition,Bed Mobility, Transfers,Gait,Activity Tolerance Assessment Summary pt is a 74 y/o F s/p fall and sustain a L femur fx. pt underwent L hip intramedullary nailing POD 1. pt is WBAT on LLE. Patient continues to require 2 person assist for functional mobility. Patient able to take very small shuffling steps 4 with 2 person max assist using FWW WBAT LEFT LE this session. Goals Bed Mobility Goal Minimal Assistance Transfer Goal Minimal Assistance,Front Wheeled Walker Gait Goal Minimal Assistance,Front Wheel Walker Gait Distance 25 Other Goals improve bed mobility, transfers, ambulation using FWW ~ 100 ft SBA Days to Meet Goals 10 Frequency of Treatment Other frequency 1-2x/day Treatment Plan Physical Therapy Treatment Plan Bed Mobility Training,Transfer Training,Gait Training, Therapeutic Exercise,Balance Retraining,Post Op Education, Discharge Planning,Hot or Cold Pack,Neuromuscular Re-ed, Coordination Retraining,Manual Therapy Weight Bearing Status Weight Bearing Status Weight Bear as Tolerated Allowed Weight Bearing Amount (enter % LLE WBAT or #) (%) Recommendations To Nursing Amount of Assist Needed PT/OT Assist Only Discharge Recommendations PT Discharge Recommendations SNF Rehab Transportation Needs at Discharge Wheelchair/Cabulance,Stretcher /Ambulance
--- NOTE | 2024-10-12 10:36 | PT.IPTN ---
Current Diagnoses Fracture of unspecified part of neck of left femur, initial encounter for closed fracture (10/09/24) Surgery Performed Operation Date: 10/10/24 14:15 Actual Procedures p intertrochanteric hip(Left) - Darion Sullivan MD Physical Therapy Treatment Note M2 PT-IP Current Condition Start: 10/11/24 14:39 Freq: NEEDED Status: Active Protocol: Document 10/12/24 10:24 AB (Rec: 10/12/24 10:36 AB [id number]) Physical Therapy Current Condition Current Condition Evaluation Date 10/11/24 Treatment Diagnosis L femur fx s/p ORIF; difficulty in walking Onset Date 10/09/24 M3 PT-IP Subjective Start: 10/11/24 14:39 Freq: NEEDED Status: Active Protocol: Document 10/12/24 10:24 AB (Rec: 10/12/24 10:36 AB [id number]) Subjective Physical Therapy Visit Type Type Treatment Note Visit Start Time 10:04 Visit Stop Time 10:18 Number of PIPE STEM SAWYER Visits 2 Physical Therapy Visit Comments Patient Comments Patient seated on edge of bed with OT start of session. Patient complaining of increased pain, then reports having a BM agreeable to transfer to commode. Therapy Pain Assessment Pain When Pain Assessed During Weight Bearing Pain Present Pain Present Denied Pain M4 PT-IP Mobility and Gait Start: 10/11/24 14:39 Freq: NEEDED Status: Active Protocol: Document 10/12/24 10:24 AB (Rec: 10/12/24 10:36 AB [id number]) PT-Transfer Assessment Sit to and From Stand Sit to and from Stand Maximum Assistance,2 Person Assistance,Use of Upper Extremities Equipment Transfer Assistive Device Gait Belt,Front Wheeled Walker Orthotic/Prosthetic Devices or Brace: No Transfers Transfer Destination Bedside Commode Transfer Ability Level of Assist Maximum Assistance,2 Person Assistance,Use of Upper Extremities Comments Mobility Comments Transfers bed to commode with FWW very small short steps X4 with increased verbal cues throughout to step to chair MAX assist of 2 sit to stand X 2( from bed and from commode) MOD assist 2 to hold in standing with patient holding FWW. Reports dizzy in standing post standing with nursing in for cleaning due to BM. BP taken once seated 112/56 HR 74 BPM. When questioned regarding pain in standing patient commented she was good. Gait Assessment Gait Gait Assistance Required: Maximum Assistance,2 Person Assist Distance (Feet) 1 Able to Maintain Weight Bearing Status Yes During Gait Assistive Devices Assistive Device Front Wheeled Walker Orthotic/Prosthetic Devices or Brace: No Gait Deviations General Gait Pattern Antalgic,Decreased Stride Length,Decreased Feet Clearance,Step-to Gait Factors Limiting Gait Function Factors Limiting Gait Function Limited Range of Motion,Poor Balance,Poor Safety Awareness Comments Gait Comments Very small steps shuffling pattern PT-Balance Assessment Sitting Balance and Reactions Static Sitting Balance Ability Poor Dynamic Sitting Balance Ability Poor Standing Balance and Reactions Static Standing Balance Ability Poor Dynamic Standing Balance Ability Poor Device Used FWW M5 PT-IP Objective Assessments Start: 10/11/24 14:39 Freq: NEEDED Status: Active Protocol: Document 10/12/24 10:24 AB (Rec: 10/12/24 10:36 AB [id number]) Orientation Orientation/Cognition Level of Alertness Alert Orientation Name,Birthday,Month,Year, Situation Language Function Ability No Deficits Noted Safety Awareness Decreased Safety Awareness Memory Description Short Term Impaired,Talent Sourcing Specialist Impaired Muscle Tone Muscle Tone WNL Yes M6 PT-IP Treatment Start: 10/11/24 14:39 Freq: NEEDED Status: Active Protocol: Document 10/11/24 15:25 AB (Rec: 10/11/24 15:39 AB [id number]) Physical Therapy Treatment Education Education Provided Precautions,Weight Bearing Status,Post-Op Packet,Safety M7 PT-IP Assessment and Plan Start: 10/11/24 14:39 Freq: NEEDED Status: Active Protocol: Document 10/12/24 10:24 AB (Rec: 10/12/24 10:36 AB [id number]) PT Summary Assessment and Plan Potential Rehabilitation Potential Fair Status of Condition at Evaluation Evolving Summary Impairments Pain,ROM,Strength,Balance, Coordination,Sensation,Tone, Cognition,Bed Mobility, Transfers,Gait,Activity Tolerance Assessment Summary pt is a 74 y/o F s/p fall and sustain a L femur fx. pt underwent L hip intramedullary nailing POD 1. pt is WBAT on LLE. Patient continues to require 2 person assist for functional mobility. Patient able to take very small shuffling steps 4 with 2 person max assist using FWW WBAT LEFT LE this session. Goals Bed Mobility Goal Minimal Assistance Transfer Goal Minimal Assistance,Front Wheeled Walker Gait Goal Minimal Assistance,Front Wheel Walker Gait Distance 25 Other Goals improve bed mobility, transfers, ambulation using FWW ~ 100 ft SBA Days to Meet Goals 10 Frequency of Treatment Other frequency 1-2x/day Treatment Plan Physical Therapy Treatment Plan Bed Mobility Training,Transfer Training,Gait Training, Therapeutic Exercise,Balance Retraining,Post Op Education, Discharge Planning,Hot or Cold Pack,Neuromuscular Re-ed, Coordination Retraining,Manual Therapy Weight Bearing Status Weight Bearing Status Weight Bear as Tolerated Allowed Weight Bearing Amount (enter % LLE WBAT or #) (%) Recommendations To Nursing Amount of Assist Needed PT/OT Assist Only Discharge Recommendations PT Discharge Recommendations SNF Rehab Transportation Needs at Discharge Wheelchair/Cabulance,Stretcher /Ambulance
--- NOTE | 2024-10-12 12:13 | CM.DPC ---
DCP Cont. Reviewed EMR and team rounds for pt's status and updates. Met with pt/spouse to discuss the possible recommendation that she could benefit from SNF rehab at d/c. Per her spouse, all three of her children are taking FMLA to assist her with home recovery, and they have obtained the necessary DME at home that she will be needing. They decline the need for SNF rehab at this time. Will continue to offer support and assist with any further evolving needs prior to d/c.
--- NOTE | 2024-10-12 15:38 | PM.PNPO.1 ---
Subjective Subjective Date Patient Seen: 10/12/24 Time Patient Seen: 15:39 Interval history: Found patient with and son in the room. They are working on exercise program. Ambitious for the patient to go home. They have purchased the appropriate medical equipment and 3 of her children will be home available to help. Concerned about orthostatic hypotension while working with PT. Patient's pain is controlled with oral medication. ?Pain is localized to surgical site. ?Patient declines any new numbness or tingling at the surgical extremity. ?Patient denies any shortness of breath, dizziness, light-headedness, nausea, vomiting, fever or chills. Exam Vital Signs (past 8 hours): - 10/12/24 08:00 10/12/24 09:20 10/12/24 09:23 Temperature 97.7 F Pulse Rate 97 H 97 H 97 H Respiratory Rate 18 Blood Pressure 123/57 L 123/57 L 123/57 L Pulse Oximetry 97 Oxygen Flow Rate 0 10/12/24 12:00 Temperature Pulse Rate 78 Respiratory Rate 20 Blood Pressure Pulse Oximetry 96 Oxygen Flow Rate 0 Fraction of Inspired Oxygen 28 SaO2/FiO2 Ratio 350 Oxygen Delivery Method Nasal Cannula Oxygen Flow Rate 0 Narrative Exam Narrative: Patient found sitting comfortably in a chair.. Right 5/5 strength in quadriceps, hamstrings, DF, PF, EHL Left 3/5 quad and hamstring, 5/5 DF, PF, EHL. Sensation to light touch intact throughout BLE. Calves soft, compressible, nontender. Dressing placed intraoperatively CDI. Objective Labs 10/11/24 04:29 10/11/24 04:29 PFSH Medical History Coronary artery disease Hypertension Congestive heart failure Surgical History History of implantable cardiac defibrillator (ICD) Social History household members: spouse Smoking Status: Never smoker alcohol intake: current Assessment & Plan Post-op Postoperative Procedures: Procedures Operation Date: 10/10/24 14:15 Actual Procedure Side Surgeon p intertrochanteric hip Left Darion Sullivan MD Postoperative day: 2 Postoperative status: doing well Postoperative plan: routine post-op care and ambulate Postoperative plan narrative: OMID gonzalez. May utilize perick Wick per protocol. Medicine will managed discharge disposition and pre-existing cardiac and altered mental statuses. Physical therapy to evaluate patient mobility, home set up, and availability of assistance at home to determine appropriateness for discharge home versus subacute rehab we agree with assessment. Weightbearing as tolerated Aspirin 81 mg twice per day for DVT prophylaxis Recommend multimodal pain regimen. Physical therapy to evaluate patient mobility, home set up, and availability of assistance at home to determine appropriateness for discharge home versus subacute rehab . Follow up in 2 weeks at [facility] Time Spent With Patient Time with patient: 15-24 minutes
[2024-10-12 17:16] LABS: Hematocrit 26.3 % (36-46); Hemoglobin 8.8 g/dL (12.0-16.0)
[2024-10-12] MEDS: SPIRONOLACTONE 25 MG TABLET PO (20:35)
[2024-10-12] MEDS: LORazepam 2 MG/ML INJ 0.5 MG IV (21:33)
[2024-10-13] VITALS (7 sets, daily range): BP systolic 98–111; BP diastolic 54–63; PULSE 80–90; RESP 12–18; TEMP 36.2–36.4; O2SAT 95–98
[2024-10-13] MEDS: TRAMADOL 50 MG TABLET PO ×3 (03:19→18:14)
[2024-10-13] MEDS: PANTOPRAZOLE DR 40 MG TABLET PO (05:48)
[2024-10-13 06:17] LABS: Add Manual Diff / Slide Review NO; Basophils Absolute Auto 0 /uL (0-100); Basophils Percent Auto 0.4 % (0-2); Eosinophils Absolute Auto 200 /uL (0-450); Eosinophils Percent Auto 3.6 % (2-4); Hematocrit 23.2 % (36-46); Hemoglobin 7.7 g/dL (12.0-16.0); Lymphocytes Absolute Auto 1000 /uL (1100-4500); Lymphocytes Percent Auto 16.2 % (25-40); Mean Corpuscular HGB Conc 33.2 % (30-36); Mean Corpuscular Hemoglobin 32.9 PG (26-34); Mean Corpuscular Volume 99.1 fL (80-100); Monocytes Absolute Auto 300 /uL (0-900); Monocytes Percent Auto 5.7 % (3-14); Neutrophils Absolute Auto 4500 /uL (1500-7000); Neutrophils Percent Auto 74.1 % (50-75); Platelet Count 139 X10^3/uL (150-400); Red Blood Cell Count 2.34 X10^6/uL (4.0-5.2); Red Cell Distribution Width 13.9 % (11.6-14.8); White Blood Cell Count 6.1 X10^3/uL (4.5-11.0)
[2024-10-13 06:29] LABS: BUN Creatinine Ratio 15.6 (6-22); Blood Urea Nitrogen 14 mg/dL (7-17); Calcium 8.4 mg/dL (8.4-10.2); Carbon Dioxide 22 mmol/L (22-32); Chloride 111 mmol/L (98-107); Estimated Glomerular Filt Rate > 60 mL/min (>60); Glucose 93 mg/dL (80-110); HEMOLYSIS < 15 (0-50); Potassium 3.4 mmol/L (3.4-5.1); Sodium 136 mmol/L (137-145)
--- NOTE | 2024-10-13 07:02 | PC.NURSE ---
NOC Shift Note- Stafford cath removed on at 1230pm. Patient unable to void as of 2029. bladder scan showing 500CCs in bladder. Straight cath done with output of 600CC's. Patient still unable to void at 0400 with bladder scan showing over 600CC's. Stafford cath placed and left in place. Stafford patent and set to gravity to drain.
--- NOTE | 2024-10-13 07:59 | PM.PN.1 ---
Subjective Subjective Interval history: Adeline is a pleasant 74 year old female who is POD#3 s/p Intramedullary nailing of left intertrochanteric femur fracture by Dr. Sullivan. Upon my arrival this morning she was resting comfortably. I returned later in the afternoon when patient was awake and more of family members were present. They express concern regarding her swelling and bruising of her left thigh, she also has some bruising on her face. She worked w/ PT on standing only today d/t concerns regarding her anemia and possible orthostatic hypotension. She received an iron infusion for her anemia. Most recent H&H of 7.7 and 23.2. Patient states her pain is well controlled w/ her current pain regiment, she has been getting Tramadol and Tylenol for pain control. She has a Stafford catheter in place. Patient resting comfortably, will return later. Exam Vital Signs (past 8 hours): - 10/13/24 04:00 Temperature 97.5 F L Pulse Rate 85 Respiratory Rate 17 Blood Pressure 111/63 Pulse Oximetry 97 Oxygen Flow Rate 0 Fraction of Inspired Oxygen 28 SaO2/FiO2 Ratio 350 Oxygen Delivery Method Nasal Cannula Oxygen Flow Rate 0 Narrative Exam Narrative: Patient lying comfortably in bed during our interview today. No acute distress. AOx3. Grossly normal alignment of the left lower extremity, there is significant swelling of the left thigh, mild bruising throughout. DF, PF, EHL intact. Gross sensation intact throughout bilateral lower extremities. Calves soft and non-tender bilaterally. SCDs are on and functioning. Tenderness to light palpation of the thigh. Brisk capillary refill. Post-surgical dressings are clean, dry and intact over the left lateral thigh with mild drainage in each dressing. Objective Labs 10/13/24 04:54 10/13/24 04:54 Labs: Laboratory Results - last 24 hr 10/12/24 10/13/24 17:10 04:54 WBC 6.1 RBC 2.34 L Hgb 8.8 L 7.7 L Hct 26.3 L 23.2 L MCV 99.1 MCH 32.9 MCHC 33.2 RDW 13.9 Plt Count 139 L Neut % (Auto) 74.1 Lymph % (Auto) 16.2 L [place] % (Auto) 5.7 Eos % (Auto) 3.6 Baso % (Auto) 0.4 Neut # (Auto) 4500 Lymph # (Auto) 1000 L [place] # (Auto) 300 Eos # (Auto) 200 Baso # (Auto) 0 Sodium 136 L Potassium 3.4 Chloride 111 H Carbon Dioxide 22 BUN 14 Creatinine 0.90 Estimated GFR > 60 BUN/Creatinine Ratio 15.6 Glucose 93 Calcium 8.4 PFSH Medical History Coronary artery disease Hypertension Congestive heart failure Surgical History History of implantable cardiac defibrillator (ICD) Social History household members: spouse Smoking Status: Never smoker alcohol intake: current Assessment & Plan Assessment and plan (1) Closed hip fracture: Qualifiers: Encounter type: initial encounter Laterality: left Qualified Code(s): S72.002A - Fracture of unspecified part of neck of left femur, initial encounter for closed fracture Status: Acute Plan 1) Discharge disposition per medicine, 2) Continue multimodal pain management with ice to the hip for additional pain control. 3) DVT prophylaxis per medicine, I recommend SCDs to be on while patient is in bed. 4) Continue to work w/ physical therapy to improve mobility. WBAT. 5) Keep dressing intact, clean, dry until 2 week postop appointment. No soaking the incision site in pools or tubs. No topical ointments or creams to the incision site. 6) Follow up at [facility] in 2 weeks for a postop appointment and wound check. 7) Urgent US of the L thigh ordered to asses for/rule out DVT and/or large hematoma collection. All patient and her families questions were answered, they demonstrates understanding and are in agreement with the plan. Call our office if any questions or concerns arise. Time-Based Coding :: [TOTAL MINUTES] spent with patient and on the chart (including review of chart, obtaining history, exam, reviewing outside data, placing orders, documenting exam and treatment plan, and counseling patient) on [DATE].
--- NOTE | 2024-10-13 08:00 | P.PN_ITS ---
Subjective Subjective Date Patient Seen: 10/13/24 Time Patient Seen: 14:23 Interval history: She is seen multiple times today to follow-up her she will bruising, left hip fracture surgery, progressive anemia, abdominal pain and cardiac status. Family are concerned about the progression of the bruises on the face. The right chin bruise appears to have followed some dependent/gravity progression. It is larger on the lower aspect. Anesthesia will come and discuss this with her. The hemoglobin has dropped from 8.8 down to 7.7 so she will receive an iron infusion today and we will repeat the CBC tonight and tomorrow with plans for transfusion if it does drop below 7. We will also stop her aspirin and continue the Protonix she is already on. The BMP was normal. The platelets are normal at 139. An INR will be added tonight. She continues to need 2 person assist to get out of bed so is likely to need half-way facility. She continues to have a Stafford catheter, placed overnight because of significant postvoid residuals above 600. It had been removed mid day yesterday. She complains of a sore throat and is requesting Cepacol. Her throat looks normal on exam. Exam Vital Signs (past 8 hours): - 10/13/24 04:00 Temperature 97.5 F L Pulse Rate 85 Respiratory Rate 17 Blood Pressure 111/63 Pulse Oximetry 97 Oxygen Flow Rate 0 Fraction of Inspired Oxygen 28 SaO2/FiO2 Ratio 350 Oxygen Delivery Method Nasal Cannula Oxygen Flow Rate 0 Narrative Exam Narrative: She is alert and oriented x3. No apparent distress. She is attended by multiple family members at all times. Throat looks normal. The bruising on both sides of the chin looks largely the same with some dependent progression on the right side. Heart is regular rate and rhythm without murmur Lungs are clear to auscultation bilaterally Extremities have no ankle edema. There is no tenderness or swelling along the left hip incision. There is no drainage. Abdomen is tender in the epigastric area. No masses felt. Objective Labs 10/13/24 04:54 10/13/24 04:54 Labs: Laboratory Results - last 24 hr 10/12/24 10/13/24 17:10 04:54 WBC 6.1 RBC 2.34 L Hgb 8.8 L 7.7 L Hct 26.3 L 23.2 L MCV 99.1 MCH 32.9 MCHC 33.2 RDW 13.9 Plt Count 139 L Neut % (Auto) 74.1 Lymph % (Auto) 16.2 L [place] % (Auto) 5.7 Eos % (Auto) 3.6 Baso % (Auto) 0.4 Neut # (Auto) 4500 Lymph # (Auto) 1000 L [place] # (Auto) 300 Eos # (Auto) 200 Baso # (Auto) 0 Sodium 136 L Potassium 3.4 Chloride 111 H Carbon Dioxide 22 BUN 14 Creatinine 0.90 Estimated GFR > 60 BUN/Creatinine Ratio 15.6 Glucose 93 Calcium 8.4 PFSH Medical History Coronary artery disease Hypertension Congestive heart failure Surgical History History of implantable cardiac defibrillator (ICD) Social History household members: spouse Smoking Status: Never smoker alcohol intake: current Assessment & Plan Assessment & Plan narrative: 1. Left intertrochanteric hip fracture. POD #3. Doing well. Anticipating SNF for rehab. Hgb has dropped to 7.7 so she will receive an iron infusion. The aspirin will be stopped. She has epigastric tenderness. The facial bruising has followed some dependent progression. Anesthesia was contacted and will come up to reassure them. She is already on a PPI. Consider surgical consultation for EGD. Check INR 2. Congestive heart failure with 35-40% ejection fraction. Continue routine medication follow closely in the postoperative period for volume overload. Resume Diuretics on 10/13/24. 3. Coronary artery disease. Clinically stable. EKG and Echo reviewed. Resumed Metoprolol, torsemide, spironolactone and Losartan 4. Hypertension. Spironolactone, metoprolol and losartan. 5. Hyperlipidemia. Continue routine medication. 6. SERGE/CKD. Creatinine 1.24. 7. Depression continue SSRI. 8. DVT prophylaxis: Sequential compression devices, postoperative management per Orthopedics. 9. Code status: Full code. Plan: -Post operative management per Orthopedics -anesthesia will visit with the family about the bruising on the face. -stop aspirin due to progressive anemia and epigastric tenderness -continue Protonix -consider referral to surgery for EGD. -follow H/H. -resumed Metoprolol and Losartan, spironolactone and torsemide -SCD for DVT prevention Time-Based Coding :: [TOTAL MINUTES] spent with patient and on the chart (including review of chart, obtaining history, exam, reviewing outside data, placing orders, documenting exam and treatment plan, and counseling patient) on [DATE].
[2024-10-13] MEDS: LOSARTAN 25 MG TABLET 12.5 MG PO (08:51)
[2024-10-13] MEDS: POTASSIUM CHLORIDE 10 MEQ TAB PO (08:51)
[2024-10-13] MEDS: ATORVASTATIN 20 MG TABLET 40 MG PO (08:52)
[2024-10-13] MEDS: TOPIRAMATE 100 MG TABLET 200 MG PO ×2 (08:52→20:22)
[2024-10-13] MEDS: METOPROLOL ER 25 MG TABLET PO (08:53)
[2024-10-13] MEDS: PARoxetine 20 MG TABLET 40 MG PO (08:53)
[2024-10-13] MEDS: ASPIRIN EC 81 MG TABLET PO (08:53)
[2024-10-13] MEDS: TORSEMIDE 10 MG TABLET 40 MG PO (08:53)
[2024-10-13] MEDS: SPIRONOLACTONE 25 MG TABLET PO ×2 (08:53→20:22)
[2024-10-13] MEDS: CHOLECALCIFEROL (VITAMIN D3) 1,000 UNIT TABLET 2000 UNIT PO (08:53)
[2024-10-13] MEDS: PANTOPRAZOLE 40 MG VIAL IV (09:53)
[2024-10-13] MEDS: IRON SUCROSE 100 MG in SODIUM CHLORIDE 0.9% 100 ML 420 MG IV (09:55)
[2024-10-13] MEDS: BENZOCAINE/MENTHOL 1 LOZ PKT 1 EACH PO ×2 (10:07→14:47)
--- NOTE | 2024-10-13 10:54 | PT.IPTN ---
Current Diagnoses Fracture of unspecified part of neck of left femur, initial encounter for closed fracture (10/09/24) Surgery Performed Operation Date: 10/10/24 14:15 Actual Procedures p intertrochanteric hip(Left) - Darion Sullivan MD Physical Therapy Treatment Note M2 PT-IP Current Condition Start: 10/11/24 14:39 Freq: NEEDED Status: Active Protocol: Document 10/13/24 09:47 AB (Rec: 10/13/24 10:52 AB [id number]) Physical Therapy Current Condition Current Condition Evaluation Date 10/11/24 Treatment Diagnosis L femur fx s/p ORIF; difficulty in walking Onset Date 10/09/24 M3 PT-IP Subjective Start: 10/11/24 14:39 Freq: NEEDED Status: Active Protocol: Document 10/13/24 09:47 AB (Rec: 10/13/24 10:52 AB [id number]) Subjective Physical Therapy Visit Type Type Treatment Note Visit Start Time 09:31 Visit Stop Time 09:43 Number of SDV PILOT/NAVIGATOR/DDS OPERATOR Visits 3 Physical Therapy Visit Comments Patient Comments Spoke with prior to session regarding 7.7 hemoglobin level. Advised to have patient stand only. On attempting to initiate therapy , family reports MD advised to hold PT and Patient would be getting Iron today. Spoke to MD again and have been advised to move forward with standing patient now. Therapy Pain Assessment Pain When Pain Assessed At Rest Location Left Hip Intensity 8 Scale Used Numeric (0 - 10) M4 PT-IP Mobility and Gait Start: 10/11/24 14:39 Freq: NEEDED Status: Active Protocol: Document 10/13/24 09:47 AB (Rec: 10/13/24 10:52 AB [id number]) PT-Bed Mobility Assessment Sit to Supine Sit to Supine Maximum Assistance,2 Person Assistance Scooting Scooting to Edge of Bed Maximum Assistance Scooting Up and Down in Bed Dependent PT-Transfer Assessment Sit to and From Stand Sit to and from Stand Moderate Assistance,2 Person Assistance,Use of Upper Extremities Equipment Transfer Assistive Device Gait Belt,Front Wheeled Walker Orthotic/Prosthetic Devices or Brace: No Comments Mobility Comments Patient standing 4-5 minutes due to BM, JIGSAWYER in to assist, requires one step verbal cues, at times tactile cues for scooting back edge of bed, and throughout sit to stand, also requires increased encouragment due to I can't do this, this is so hard, with increased respirtory rate prior to initiating sit to stand. PT-Balance Assessment Sitting Balance and Reactions Static Sitting Balance Ability Poor Dynamic Sitting Balance Ability Poor Standing Balance and Reactions Static Standing Balance Ability Poor Dynamic Standing Balance Ability Poor Device Used FWW M5 PT-IP Objective Assessments Start: 10/11/24 14:39 Freq: NEEDED Status: Active Protocol: Document 10/13/24 09:47 AB (Rec: 10/13/24 10:52 AB [id number]) Orientation Orientation/Cognition Level of Alertness Alert Orientation Birthday,Month,Year,Situation Language Function Ability No Deficits Noted Safety Awareness Decreased Safety Awareness Memory Description Short Term Impaired,Inbound Telemarketer Impaired M6 PT-IP Treatment Start: 10/11/24 14:39 Freq: NEEDED Status: Active Protocol: Document 10/13/24 09:47 AB (Rec: 10/13/24 10:52 AB [id number]) Physical Therapy Treatment Education Education Provided Precautions,Weight Bearing Status,Post-Op Packet,Safety M7 PT-IP Assessment and Plan Start: 10/11/24 14:39 Freq: NEEDED Status: Active Protocol: Document 10/13/24 09:47 AB (Rec: 10/13/24 10:52 AB [id number]) PT Summary Assessment and Plan Potential Rehabilitation Potential Fair Status of Condition at Evaluation Evolving Summary Impairments Pain,ROM,Strength,Balance, Coordination,Sensation,Tone, Cognition,Bed Mobility, Transfers,Gait,Activity Tolerance Assessment Summary pt is a 74 y/o F s/p fall and sustain a L femur fx. pt underwent L hip intramedullary nailing POD 1. pt is WBAT on LLE. Adeline continues to require 2 person assist for sit to and from stand, but was able to stand for increased time with no complaints of dizziness and one person Mod assist for standing in place with FWW while aide obtained cleaning wipes. Goals Bed Mobility Goal Minimal Assistance Transfer Goal Minimal Assistance,Front Wheeled Walker Gait Goal Minimal Assistance,Front Wheel Walker Gait Distance 25 Other Goals improve bed mobility, transfers, ambulation using FWW ~ 100 ft SBA Days to Meet Goals 10 Frequency of Treatment Other frequency 1-2x/day Treatment Plan Physical Therapy Treatment Plan Bed Mobility Training,Transfer Training,Gait Training, Therapeutic Exercise,Balance Retraining,Post Op Education, Discharge Planning,Hot or Cold Pack,Neuromuscular Re-ed, Coordination Retraining,Manual Therapy Weight Bearing Status Weight Bearing Status Weight Bear as Tolerated Allowed Weight Bearing Amount (enter % LLE WBAT or #) (%) Recommendations To Nursing Amount of Assist Needed Mechanical Lift Discharge Recommendations PT Discharge Recommendations SNF Rehab Transportation Needs at Discharge Wheelchair/Cabulance,Stretcher /Ambulance
[2024-10-13] MEDS: POTASSIUM CHLORIDE 20 MEQ TAB 40 MEQ PO (11:15)
--- NOTE | 2024-10-13 13:52 | OT.IPNOTE ---
Hold today as pt sleeping and just having iron infusion today and HH running low.
--- NOTE | 2024-10-13 15:33 | DI.US.S_ITS ---
PROCEDURE: US PERIPH VENOUS LOW EXTREM LT INDICATIONS: Left thigh swelling and Pain TECHNIQUE: Real-time imaging, as well as color and pulse Doppler interrogation, were performed of the lower extremity deep veins from the inguinal ligament to the popliteal fossa, with documentation of the visualized calf veins. COMPARISON: None. FINDINGS: The common femoral, femoral, popliteal, and the visualized calf veins are normally compressible, and free of intraluminal thrombus. Color and pulse Doppler demonstrate normal phasic intraluminal flow. There is normal augmentation response to distal compression maneuver. IMPRESSION: No findings of lower extremity deep venous thrombosis. Approved by: Lebron Rios M.D. on 10/13/2024 at 16:19
[2024-10-13 20:22] LABS: Add Manual Diff / Slide Review NO; Basophils Absolute Auto 0 /uL (0-100); Basophils Percent Auto 0.7 % (0-2); Eosinophils Absolute Auto 200 /uL (0-450); Eosinophils Percent Auto 2.2 % (2-4); Hemoglobin 8.4 g/dL (12.0-16.0); Lymphocytes Absolute Auto 1100 /uL (1100-4500); Lymphocytes Percent Auto 16.7 % (25-40); Mean Corpuscular HGB Conc 33.6 % (30-36); Mean Corpuscular Hemoglobin 33.1 PG (26-34); Mean Corpuscular Volume 98.5 fL (80-100); Monocytes Absolute Auto 400 /uL (0-900); Monocytes Percent Auto 6.5 % (3-14); Neutrophils Absolute Auto 5000 /uL (1500-7000); Neutrophils Percent Auto 73.9 % (50-75); Platelet Count 171 X10^3/uL (150-400); Red Blood Cell Count 2.54 X10^6/uL (4.0-5.2); Red Cell Distribution Width 13.9 % (11.6-14.8); White Blood Cell Count 6.8 X10^3/uL (4.5-11.0)
[2024-10-13] MEDS: ACETAMINOPHEN 325 MG TABLET 650 MG PO (20:22)
[2024-10-13] MEDS: LORazepam 2 MG/ML INJ 0.5 MG IV (20:22)
[2024-10-13 20:27] LABS: INR 0.9 (0.9-1.3); Prothrombin Time 10.6 SECONDS (9.4-12.5)
[2024-10-14 04:00] VITALS: BP 113/63; PULSE 85; RESP 17; TEMP 36.2; O2SAT 96
[2024-10-14] MEDS: TRAMADOL 50 MG TABLET PO ×3 (06:07→18:20)
[2024-10-14 06:10] LABS: Add Manual Diff / Slide Review NO; Basophils Absolute Auto 0 /uL (0-100); Basophils Percent Auto 0.5 % (0-2); Eosinophils Absolute Auto 300 /uL (0-450); Hematocrit 24.1 % (36-46); Hemoglobin 8.1 g/dL (12.0-16.0); Lymphocytes Absolute Auto 1500 /uL (1100-4500); Lymphocytes Percent Auto 23.1 % (25-40); Mean Corpuscular HGB Conc 33.8 % (30-36); Mean Corpuscular Hemoglobin 33.4 PG (26-34); Mean Corpuscular Volume 98.8 fL (80-100); Monocytes Absolute Auto 400 /uL (0-900); Monocytes Percent Auto 5.9 % (3-14); Neutrophils Absolute Auto 4300 /uL (1500-7000); Neutrophils Percent Auto 66.5 % (50-75); Platelet Count 172 X10^3/uL (150-400); Red Blood Cell Count 2.44 X10^6/uL (4.0-5.2); Red Cell Distribution Width 14.2 % (11.6-14.8); White Blood Cell Count 6.5 X10^3/uL (4.5-11.0)
[2024-10-14 06:19] LABS: Blood Urea Nitrogen 14 mg/dL (7-17); Calcium 8.5 mg/dL (8.4-10.2); Carbon Dioxide 24 mmol/L (22-32); Chloride 108 mmol/L (98-107); Estimated Glomerular Filt Rate 53 mL/min (>60); Glucose 94 mg/dL (80-110); HEMOLYSIS < 15 (0-50); Potassium 3.8 mmol/L (3.4-5.1); Sodium 137 mmol/L (137-145)
--- NOTE | 2024-10-14 07:56 | PM.PN.1 ---
Subjective Subjective Date Patient Seen: 10/14/24 Time Patient Seen: 11:13 Interval history: She is seen today to follow-up her left hip fracture, postoperative blood loss anemia, under outlet dysfunction and hypertension. The white count is 6.5. The hemoglobin is now 8.1, up from 7.7 yesterday. She did receive an IV iron infusion yesterday. The BMP is normal with a creatinine of 1.08. Family are requesting B12 and TSH. The MCV is 98.8. They are also requesting a UA to be done on the Stafford catheter specimen, reporting that the insertion 2 nights ago was not done using sterile technique? So far every Senior Living has turned her down due to her 's request to be boarding in the room with her at all times. Exam Vital Signs (past 8 hours): - 10/14/24 04:00 Temperature 97.1 F L Pulse Rate 85 Respiratory Rate 17 Blood Pressure 113/63 Pulse Oximetry 96 Oxygen Flow Rate 0 Fraction of Inspired Oxygen 28 SaO2/FiO2 Ratio 350 Oxygen Delivery Method Room Air Oxygen Flow Rate 0 Narrative Exam Narrative: Alert and oriented x3. No apparent distress. Heart is regular rate and rhythm without murmur Lungs are clear to auscultation bilaterally Abdomen is soft, nontender Left thigh without palpable swelling, discharge or bleeding. No tenderness. Objective Labs 10/14/24 05:40 10/14/24 05:40 Labs: Laboratory Results - last 24 hr 10/13/24 10/14/24 20:14 05:40 WBC 6.8 6.5 RBC 2.54 L 2.44 L Hgb 8.4 L 8.1 L Hct 25.0 L 24.1 L MCV 98.5 98.8 MCH 33.1 33.4 MCHC 33.6 33.8 RDW 13.9 14.2 Plt Count 171 172 Neut % (Auto) 73.9 66.5 Lymph % (Auto) 16.7 L 23.1 L Marion % (Auto) 6.5 5.9 Eos % (Auto) 2.2 4.0 Baso % (Auto) 0.7 0.5 Neut # (Auto) 5000 4300 Lymph # (Auto) 1100 1500 Marion # (Auto) 400 400 Eos # (Auto) 200 300 Baso # (Auto) 0 0 PT 10.6 INR 0.9 Sodium 137 Potassium 3.8 Chloride 108 H Carbon Dioxide 24 BUN 14 Creatinine 1.08 H Estimated GFR 53 L BUN/Creatinine Ratio 13.0 Glucose 94 Calcium 8.5 PFSH Medical History Coronary artery disease Hypertension Congestive heart failure Surgical History History of implantable cardiac defibrillator (ICD) Social History household members: spouse Smoking Status: Never smoker alcohol intake: current Assessment & Plan Assessment & Plan narrative: 1. Left intertrochanteric hip fracture. POD #4. Doing well. Anticipating SNF for rehab. Hgb dropped to 7.7 so she received an iron infusion with an increase to 8.1 the next day. The aspirin was stopped. She had epigastric tenderness. The facial bruising has followed some dependent progression. Anesthesia was contacted and were able to reassure the family. She is already on a PPI. Consider surgical consultation for EGD. 0.9 INR 2. Congestive heart failure with 35-40% ejection fraction. Continue routine medication follow closely in the postoperative period for volume overload. Resume Diuretics on 10/13/24. 3. Coronary artery disease. Clinically stable. EKG and Echo reviewed. Resumed Metoprolol, torsemide, spironolactone and Losartan 4. Hypertension. Spironolactone, metoprolol and losartan. 5. Hyperlipidemia. Continue routine medication. 6. SERGE/CKD. Creatinine 1.08. 7. Depression continue SSRI. 8. DVT prophylaxis: Sequential compression devices, postoperative management per Orthopedics. 9. Code status: Full code. Plan: -Post operative management per Orthopedics -anesthesia spoke with the family about the bruising on the face. -stopped aspirin due to progressive anemia and epigastric tenderness -continue Protonix -consider referral to surgery for EGD. -follow H/H. -resumed Metoprolol and Losartan, spironolactone and torsemide -SCD for DVT prevention Time-Based Coding :: [TOTAL MINUTES] spent with patient and on the chart (including review of chart, obtaining history, exam, reviewing outside data, placing orders, documenting exam and treatment plan, and counseling patient) on [DATE].
[2024-10-14 08:00] VITALS: BP 100/41; PULSE 83; RESP 16; TEMP 36.2; O2SAT 93
--- NOTE | 2024-10-14 08:46 | PM.PNPO.1 ---
Subjective Subjective Date Patient Seen: 10/14/24 Time Patient Seen: 08:46 Interval history: Pt sitting up in bed with family members in the room. There had been a CM note that pt was going to d/c w/ family vs SNF, but family and pt now tell me they have changed their minds and realize she would best be served by further SNF rehab prior to going home. She had an iron transfusion yesterday and her H/H levels increased and have remained stable. Her ASA is currently held per hospitalist service d/t anemia and epigastric pain. Exam Vital Signs (past 8 hours): - 10/14/24 04:00 10/14/24 08:00 Temperature 97.1 F L 97.2 F L Pulse Rate 85 83 Respiratory Rate 17 16 Blood Pressure 113/63 100/41 L Pulse Oximetry 96 93 Oxygen Flow Rate 0 0 Fraction of Inspired Oxygen 28 SaO2/FiO2 Ratio 350 Oxygen Delivery Method Room Air Oxygen Flow Rate 0 Narrative Exam Narrative: 5/5 PF, DF, EHL on left; 3/5 hip flexors, quadriceps, hamstrings. Calf soft and compressible, SCD in place. Dressings placed intraoperatively with minimal serosanguinous discharge. Objective Labs 10/14/24 05:40 10/14/24 05:40 Labs: Laboratory Results - last 24 hr 10/13/24 10/14/24 20:14 05:40 WBC 6.8 6.5 RBC 2.54 L 2.44 L Hgb 8.4 L 8.1 L Hct 25.0 L 24.1 L MCV 98.5 98.8 MCH 33.1 33.4 MCHC 33.6 33.8 RDW 13.9 14.2 Plt Count 171 172 Neut % (Auto) 73.9 66.5 Lymph % (Auto) 16.7 L 23.1 L [place] % (Auto) 6.5 5.9 Eos % (Auto) 2.2 4.0 Baso % (Auto) 0.7 0.5 Neut # (Auto) 5000 4300 Lymph # (Auto) 1100 1500 [place] # (Auto) 400 400 Eos # (Auto) 200 300 Baso # (Auto) 0 0 PT 10.6 INR 0.9 Sodium 137 Potassium 3.8 Chloride 108 H Carbon Dioxide 24 BUN 14 Creatinine 1.08 H Estimated GFR 53 L BUN/Creatinine Ratio 13.0 Glucose 94 Calcium 8.5 PFSH Medical History Coronary artery disease Hypertension Congestive heart failure Surgical History History of implantable cardiac defibrillator (ICD) Social History household members: spouse Smoking Status: Never smoker alcohol intake: current Assessment & Plan Post-op Assessment and plan (1) Closed hip fracture: Assessment and Plan narrative: 1) Pain control, VTE prophylaxis, disposition per hospitalist service. Recommend enoxaparin x 4 weeks if medically appropriate and pt unable to take ASA. 2) F/u w/ ortho in 2 weeks for wound check 3) Weightbearing as tolerated to left leg. Postoperative Procedures: Procedures Operation Date: 10/10/24 14:15 Actual Procedure Side Surgeon p intertrochanteric hip Left Darion Sullivan MD Postoperative day: 4
[2024-10-14] MEDS: MEXILETINE 150 MG 150 EACH PO ×2 (09:22→20:21)
[2024-10-14] MEDS: TOPIRAMATE 100 MG TABLET 200 MG PO ×2 (09:22→20:21)
[2024-10-14] MEDS: TORSEMIDE 10 MG TABLET 40 MG PO (09:22)
[2024-10-14] MEDS: PANTOPRAZOLE 40 MG VIAL IV (09:22)
[2024-10-14] MEDS: PARoxetine 20 MG TABLET 40 MG PO (09:23)
[2024-10-14] MEDS: METOPROLOL ER 25 MG TABLET PO (09:23)
[2024-10-14] MEDS: ATORVASTATIN 20 MG TABLET 40 MG PO (09:23)
[2024-10-14] MEDS: POTASSIUM CHLORIDE 10 MEQ TAB PO (09:23)
[2024-10-14] MEDS: CHOLECALCIFEROL (VITAMIN D3) 1,000 UNIT TABLET 2000 UNIT PO (09:24)
[2024-10-14] MEDS: SPIRONOLACTONE 25 MG TABLET PO ×2 (09:24→20:23)
[2024-10-14] MEDS: ACETAMINOPHEN 325 MG TABLET 650 MG PO ×2 (09:50→20:23)
--- NOTE | 2024-10-14 11:15 | OT.IP.TRT ---
Current Diagnoses Fracture of unspecified part of neck of left femur, initial encounter for closed fracture (10/09/24) Surgery Performed Operation Date: 10/10/24 14:15 Actual Procedures p intertrochanteric hip(Left) - Darion Sullivan MD Occupational Therapy Treatment Note M2 OT-IP Current Condition Start: 10/11/24 13:21 Freq: Status: Active Protocol: Document 10/11/24 13:21 [facility] (Rec: 10/11/24 13:37 [facility] [id number]) Occupational Therapy Current Condition Current Condition Evaluation Date 10/11/24 Treatment Diagnosis L hip fx, S/P ORIF Diagnosis Onset Date 10/09/24 Weight Bearing Status Weight Bearing Status Weight Bear as Tolerated M3 OT- IP Subjective and Pain Start: 10/11/24 13:21 Freq: Status: Active Protocol: Document 10/14/24 12:14 [facility] (Rec: 10/14/24 12:24 [facility] [id number]) OT- Subjective Occupational Therapy Visit Type Type Treatment Note Visit Start Time 10:42 Visit Stop Time 11:15 Occupational Therapy Visit Comments Patient Comments Pt agreed to get up and needing to be changed. Patient/Caregiver Goals TO get better. OT Pain Assessment Pain When Pain Assessed During Mobility Pain Present Pain Present Pain Reported Location Left Hip Intensity 8 Scale Used Numeric (0 - 10) Pain Behaviors Calling Out,Facial Grimacing, Holding Area M4 OT- IP ADL's Start: 10/11/24 13:21 Freq: Status: Active Protocol: Document 10/14/24 12:14 [facility] (Rec: 10/14/24 12:24 [facility] [id number]) OT [id number] Comments OT Self-Feeding Comments Not at meal time. OT ADL-Grooming General Evaluation Grooming Ability Standby Assistance Comments OT Grooming Comments Pt able to wash her face and brush her hair while seated on the BSC. OT ADL-Dressing General Eval Upper Body Dressing Ability Moderate Assistance Lower Body Dressing Ability Total Assistance Areas Needing Assistance Underpants/Brief,Socks OT ADL-Toileting General Evaluation Toileting Ability Total Assistance Areas Needing Assistance Empty Catheter or Colostomy, Manage Clothing,Perform Perineal Hygiene Comments OT Toileting Comments MAX A 1-2 to stand and then able to stand with MODA X 1 while nursing aid assist to clean pt. OT ADL-Bathing Bathing Type Bathing Type Sponge Bath General Evaluation Bathing Ability Maximal Assistance Comments OT Bathing Comments Pt able to assist to wash her face, arms, and upper legs. M5 OT- IP IADL's Start: 10/11/24 13:21 Freq: Status: Active Protocol: Document 10/11/24 13:21 [facility] (Rec: 10/11/24 13:37 [facility] [id number]) OT-Instrumental Activities of Daily Living Home Safety Awareness Awareness of Need for Assistance at Home Decreased Awareness Ability to Problem Solve Emergency Unable to Problem Solve Situations Home Safety Comments Pt is groggy and confused at this time. Medication Management Medication Management Caregiver Administers Money Management Money Management Caregiver Provides Assistance Meal Preparation Meal Preparation Caregiver Provides Assist Director Part Director Part Caregiver Provides Assist Driving Driving Caregiver Provides Assist M6 OT- IP Functional Cognition Start: 10/11/24 13:21 Freq: Status: Active Protocol: Document 10/14/24 12:14 [facility] (Rec: 10/14/24 12:24 [facility] [id number]) Cognitive Factors Limiting Selfcare Function Cognitive Ability Level of Alertness Alert Ability to Follow Commands Able to Follow One Step Commands with Increased Time, Able to Follow One Step Commands with Repetition Memory Description Short Term Impaired Cognitive Comments Cognitive Assessment Comments Pt still needing encouragement , concrete cues and step by step commands for ADL and mobility needs. M7 OT- IP Mobility and Balance Start: 10/11/24 13:21 Freq: Status: Active Protocol: Document 10/14/24 12:14 [facility] (Rec: 10/14/24 12:24 [facility] [id number]) OT- Bed Mobility Assessment Supine to Sit Supine to Sit Assist Maximum Assistance,1 Person Assistance Scooting Scooting to Edge of Bed Maximum Assistance,1 Person Assistance OT-Transfer Assessment Sit to and From Stand Sit to and from Stand Moderate Assistance,Maximum Assistance,2 Person Assistance Transfers Transfer Ability Maximum Assistance,2 Person Assistance Technique Transfer Destination Bed,Bedside Commode,Chair Transfer Technique Stand Step Pivot Devices Transfer Assistive Devices Gait Belt,Front Wheeled Walker Comments Mobility Comments Pt doing better to be able to assist to bridge with her RLE and move her hips to the edge of the bed. Still having to heavily use the green pad to assist. MAX AX 2 to stand to the FWW and to keep the LLE from buckling and to guide the FWW. OT- Balance Assessment Sitting Balance and Reactions Static Sitting Balance Ability Good Dynamic Sitting Balance Ability Fair Standing Balance and Reactions Static Standing Balance Ability Poor Dynamic Standing Balance Ability Poor M8 OT- IP Objective Assessments Start: 10/11/24 13:21 Freq: Status: Active Protocol: Document 10/11/24 13:21 [facility] (Rec: 10/11/24 13:37 [facility] [id number]) OT Gross Range of Motion Upper Extremity Range of Motion Assessment Within Functional Limits OT Strength Comments Strength Comments BUE at least 4/5 OT- Coordination Assessment Upper Extremity Finger to Nose Test Within Functional Limits M9 OT- IP Assessment and Plan Start: 10/11/24 13:21 Freq: Status: Active Protocol: Document 10/14/24 12:14 [facility] (Rec: 10/14/24 12:24 [facility] [id number]) OT Summary Assessment and Plan Potential Rehabilitation Potential Good Analytic Complexity at Evaluation Moderate Summary OT Impairments Pain,Range of Motion,Strength, Balance,Functional Cognition, Functional Mobility,Self- Feeding,Grooming,Dressing, Toileting,Bathing,Toilet Transfers,Shower Transfers, Activity Tolerance Progress Towards Goals Progressing Toward Goals,Slow Progress due to Pain,Slow Progress due to Activity Tolerance,Slow Progress due to Cognition Assessment Summary Pt able to actively participate in transfer to the BSC, sponge bathing and then transfer to the recliner with MAX AX 2 with FWW. Pt to go to skilled rehab when medically stable. Goals Self-Feeding Goal Independent Grooming Goal Independent Dressing Goal Moderate Assistance Toileting Goal Minimal Assistance Bathing Goal Minimal Assistance Toilet Transfer Goal Minimal Assistance Shower Transfer Goal Moderate Assistance Days to Meet Goals 28 Frequency of Treatment Other frequency 5x/week Treatment Plan OT Treatment Plan ADL Training,Functional Cognition Training,Functional Mobility,Patient/Family Education,Discharge Planning Other Treatment Recommendations and Next Practice LB dressing equipment Treatment Focus Discharge Recommendations OT Discharge Recommendations SNF Rehab Transportation Needs at Discharge Wheelchair/Cabulance
[2024-10-14 14:15] LABS: Thyroid Stimulating Hormone 1.49 uIU/mL (0.47-4.68)
[2024-10-14 14:33] LABS: Vitamin B12 956 pg/mL (239-931)
--- NOTE | 2024-10-14 15:13 | PT.IPTN ---
Current Diagnoses Fracture of unspecified part of neck of left femur, initial encounter for closed fracture (10/09/24) Surgery Performed Operation Date: 10/10/24 14:15 Actual Procedures p intertrochanteric hip(Left) - Darion Sullivan MD Physical Therapy Treatment Note M2 PT-IP Current Condition Start: 10/11/24 14:39 Freq: NEEDED Status: Active Protocol: Document 10/14/24 14:02 [facility] (Rec: 10/14/24 15:11 AB [id number]) Physical Therapy Current Condition Current Condition Evaluation Date 10/11/24 Treatment Diagnosis L femur fx s/p ORIF; difficulty in walking Onset Date 10/09/24 M3 PT-IP Subjective Start: 10/11/24 14:39 Freq: NEEDED Status: Active Protocol: Document 10/14/24 14:02 AB (Rec: 10/14/24 15:11 AB [id number]) Subjective Physical Therapy Visit Type Type Treatment Note Visit Start Time 14:18 Visit Stop Time 14:43 Number of OUTSIDE SALES REPRESENTATIVE Visits 4 Physical Therapy Visit Comments Patient Comments Patient agreeable for transfer back to chair with FWW. Reports pain 8/10 seated at rest L LE start of session. Therapy Pain Assessment Pain When Pain Assessed At Rest Pain Present Pain Present Pain Reported Location Left Hip Intensity 8 Scale Used Numeric (0 - 10) M4 PT-IP Mobility and Gait Start: 10/11/24 14:39 Freq: NEEDED Status: Active Protocol: Document 10/14/24 14:02 AB (Rec: 10/14/24 15:11 AB [id number]) PT-Bed Mobility Assessment Sit to Supine Sit to Supine Maximum Assistance,2 Person Assistance Scooting Scooting to Edge of Bed Moderate Assistance PT-Transfer Assessment Sit to and From Stand Sit to and from Stand Maximum Assistance,2 Person Assistance,Use of Upper Extremities Equipment Transfer Assistive Device Gait Belt,Front Wheeled Walker Orthotic/Prosthetic Devices or Brace: No Transfers Transfer Destination Bed Transfer Technique using FWW 6 small steps Transfer Ability Level of Assist Moderate Assistance,2 Person Assistance,Use of Upper Extremities Comments Mobility Comments Patient transfers chair to bed using FWW WBAT L LE MAX A 2 persons for sit to stand Mod A 2 personsfor stepping with FWW one step vc and assist with positioning FWW Gait Assessment Gait Gait Assistance Required: Maximum Assistance,2 Person Assist Distance (Feet) 1 Able to Maintain Weight Bearing Status Yes During Gait Assistive Devices Assistive Device Front Wheeled Walker Orthotic/Prosthetic Devices or Brace: No Gait Deviations General Gait Pattern Antalgic,Decreased Stride Length,Decreased Feet Clearance,Step-to Gait Factors Limiting Gait Function Factors Limiting Gait Function Limited Range of Motion,Poor Balance,Poor Safety Awareness Comments Gait Comments See transfer note above, ambulation was performed during chair to bed transfer 6 steps with FWW PT-Balance Assessment Sitting Balance and Reactions Static Sitting Balance Ability Fair Dynamic Sitting Balance Ability Poor Standing Balance and Reactions Static Standing Balance Ability Poor Dynamic Standing Balance Ability Poor Device Used FWW M5 PT-IP Objective Assessments Start: 10/11/24 14:39 Freq: NEEDED Status: Active Protocol: Document 10/13/24 09:47 AB (Rec: 10/13/24 10:52 AB [id number]) Orientation Orientation/Cognition Level of Alertness Alert Orientation Birthday,Month,Year,Situation Language Function Ability No Deficits Noted Safety Awareness Decreased Safety Awareness Memory Description Short Term Impaired,Senior Care Impaired M6 PT-IP Treatment Start: 10/11/24 14:39 Freq: NEEDED Status: Active Protocol: Document 10/14/24 14:02 AB (Rec: 10/14/24 15:11 AB [id number]) Physical Therapy Treatment Exercises Exercises Ankle Pumps,Heel Slides,Supine Hip Abduction Other Treatments Other Treatment Performed AA hip abd and HS, AROM long arc quads while seated in chair start of session. Family ed how to support LE during HS. L LE M7 PT-IP Assessment and Plan Start: 10/11/24 14:39 Freq: NEEDED Status: Active Protocol: Document 10/14/24 14:02 AB (Rec: 10/14/24 15:11 AB [id number]) PT Summary Assessment and Plan Potential Rehabilitation Potential Fair Status of Condition at Evaluation Evolving Summary Impairments Pain,ROM,Strength,Balance, Coordination,Sensation,Tone, Cognition,Bed Mobility, Transfers,Gait,Activity Tolerance Assessment Summary pt is a 74 y/o F s/p fall and sustain a L femur fx. pt underwent L hip intramedullary nailing POD 1. pt is WBAT on LLE. Adeline requires one step verbal cues and 2 person mod assist using FWW WBAT for 6 steps, cues for moving FWW, pushing down on walker to step and direction of stepping. Seated scooting edge of bed also requires assist and one step verbal cues, patient was able to use rails to move upper body, but requires assist for positioning left LE to scoot buttocks laterally when in bed. Adeline rates left hip pain 4-5 /10 in bed, exit alarm in place, call light with in reach, family present. Goals Bed Mobility Goal Minimal Assistance Transfer Goal Minimal Assistance,Front Wheeled Walker Gait Goal Minimal Assistance,Front Wheel Walker Gait Distance 25 Other Goals improve bed mobility, transfers, ambulation using FWW ~ 100 ft SBA Days to Meet Goals 10 Frequency of Treatment Other frequency 1-2x/day Treatment Plan Physical Therapy Treatment Plan Bed Mobility Training,Transfer Training,Gait Training, Therapeutic Exercise,Balance Retraining,Post Op Education, Discharge Planning,Hot or Cold Pack,Neuromuscular Re-ed, Coordination Retraining,Manual Therapy Weight Bearing Status Weight Bearing Status Weight Bear as Tolerated Allowed Weight Bearing Amount (enter % LLE WBAT or #) (%) Recommendations To Nursing Amount of Assist Needed Mechanical Lift Discharge Recommendations PT Discharge Recommendations SNF Rehab Transportation Needs at Discharge Wheelchair/Cabulance,Stretcher /Ambulance
[2024-10-14 16:00] VITALS: BP 106/54; PULSE 85; RESP 16; TEMP 36.2; O2SAT 95
[2024-10-14] MEDS: methocarbamoL 500 MG TABLET PO (16:54)
--- NOTE | 2024-10-14 17:45 | CM.DPNOTE ---
DCP Continued: Reviewed EMR and team rounds for pt?s medical status. Per hospitalist, pt not medically cleared today due to H/H. Pt still recommended for SNF and family is agreeable/hopeful for this plan now. It is reported that a SNF Rehab bed search is in progress. Pt family has expressed preferences for location and accomodations. Utilizing this, referrals have been [facility] to [facility], [facility], [facility] ([facility]) and [facility]. All have declined referral except for [facility]. FUR TANNER spent most of day attempting to connect with Admissions at [facility], left messages with Tina at Admissions. At 1500, FUR TANNER able to connect with Admissions and discuss pt. It is reported that pt is partially accepted pending final authorization by [employer] (pt family hopeful pt spouse can room with her at SNF, it is reported this can be allowed due to private room with only shared bathroom). [facility] still requesting PT/OT notes over the weekend. FUR TANNER sent most recent PT/OT notes from 10/14/24. FUR TANNER entered room, introduced self and role. Met with pt children, Nadia, Nir, and Suzie. FUR TANNER reviewed all referrals sent out to [facility] per their request and discussed what was reported by [facility]. Pt family appreciative of education of SNF referral process/insurance and discuss anxiety about caring for mother at home without proper rehab first before dc home. FUR TANNER utilized reflective listening to assist in validating their responses during this admission. FUR TANNER reviewed that pt's participation in PT/OT is also being monitored by SNF before final acceptance decision, they all verbalized understanding. FUR TANNER initiated PASRR, PASRR positive due to pt antidepressant rx. Need MD signature, placed in pt red folder for signature. Plan: Pending SNF acceptance to be determined on 10/17. CM Team will continue to follow for coordination of discharge plans. VICTORIA CampoSW
[2024-10-14 19:00] VITALS: BP 104/61; PULSE 84; RESP 18; TEMP 37.4; O2SAT 98
[2024-10-14 19:58] LABS: Appearance Urine UA CLEAR; Bilirubin Urine UA NEGATIVE (NEGATIVE); Color Urine UA YELLOW; Glucose Urine UA NEGATIVE (Negative); Ketones Urine UA NEGATIVE (NEGATIVE); Leukocyte Esterase Urine UA 1+ (NEGATIVE); Nitrite Urine UA NEGATIVE (Negative); Occult Blood Urine UA 2+ (Negative); Protein Urine UA NEGATIVE (Negative); Urobilinogen Urine UA 0.2 E.U./dL (0.2)
[2024-10-14 20:07] LABS: Bacteria Urine Few (2-10); Culture Indicated Urine Specimen Cultured; RBC Urine 5-10/HPF (0-5/HPF); Squamous Epithelial Cell Urine 1-5 /HPF (0-5/HPF); Urine Volume 10mL (spun); WBC Urine 5-10/HPF (0-5/HPF); pH Urine UA 5.5 (4.5-8.0)
[2024-10-14] MEDS: LORazepam 2 MG/ML INJ 0.5 MG IV (20:26)
[2024-10-15] MEDS: TRAMADOL 50 MG TABLET PO ×4 (00:04→20:32)
[2024-10-15 03:00] VITALS: BP 102/60; PULSE 89; RESP 18; TEMP 36.7; O2SAT 92
[2024-10-15 06:02] LABS: Add Manual Diff / Slide Review NO; Basophils Absolute Auto 100 /uL (0-100); Basophils Percent Auto 0.8 % (0-2); Eosinophils Absolute Auto 300 /uL (0-450); Eosinophils Percent Auto 3.5 % (2-4); Hematocrit 24.3 % (36-46); Hemoglobin 8.1 g/dL (12.0-16.0); Lymphocytes Absolute Auto 1300 /uL (1100-4500); Lymphocytes Percent Auto 16.9 % (25-40); Mean Corpuscular HGB Conc 33.4 % (30-36); Mean Corpuscular Hemoglobin 32.8 PG (26-34); Mean Corpuscular Volume 98.2 fL (80-100); Monocytes Absolute Auto 500 /uL (0-900); Monocytes Percent Auto 6.7 % (3-14); Neutrophils Absolute Auto 5600 /uL (1500-7000); Neutrophils Percent Auto 72.1 % (50-75); Platelet Count 189 X10^3/uL (150-400); Red Blood Cell Count 2.47 X10^6/uL (4.0-5.2); Red Cell Distribution Width 14.4 % (11.6-14.8); White Blood Cell Count 7.8 X10^3/uL (4.5-11.0)
--- NOTE | 2024-10-15 07:44 | P.PN_ITS ---
Subjective Subjective Date Patient Seen: 10/15/24 Interval history: She is seen today to follow-up her anemia, hip fracture and hypertension. The hemoglobin is stable at 8.1. The B12 is 956 with a TSH of 1.49. The UA has 5- 10 RBC and 5-10 wbc's with negative nitrates. A culture is pending. We will give her IV iron today. We discussed all these issues with her son, daughter and . She has a tentative SNF acceptance in 2 more days pending updated therapy notes this weekend. Inpatient rehab was considered but she has not demonstrated the 3 hour per day endurance that would be needed so far. Exam Vital Signs (past 8 hours): - 10/15/24 03:00 Temperature 98.1 F Pulse Rate 89 Respiratory Rate 18 Blood Pressure 102/60 Pulse Oximetry 92 Oxygen Flow Rate 0 Fraction of Inspired Oxygen 28 SaO2/FiO2 Ratio 350 Oxygen Delivery Method Room Air Oxygen Flow Rate 0 Narrative Exam Narrative: Alert and oriented x3. No apparent distress. The bruising on her face is beginning to fade. Heart is regular rate and rhythm without murmur Lungs are clear to auscultation bilaterally Extremities have no ankle edema Objective Labs 10/15/24 05:30 10/14/24 05:40 Labs: Laboratory Results - last 24 hr 10/14/24 10/14/24 10/15/24 05:40 18:00 05:30 WBC 7.8 RBC 2.47 L Hgb 8.1 L Hct 24.3 L MCV 98.2 MCH 32.8 MCHC 33.4 RDW 14.4 Plt Count 189 Neut % (Auto) 72.1 Lymph % (Auto) 16.9 L [place] % (Auto) 6.7 Eos % (Auto) 3.5 Baso % (Auto) 0.8 Neut # (Auto) 5600 Lymph # (Auto) 1300 [place] # (Auto) 500 Eos # (Auto) 300 Baso # (Auto) 100 Vitamin B12 956 H TSH 1.49 Urine Color Yellow Urine Appearance Clear Urine pH 5.5 Ur Specific [place] 1.010 Urine Protein Negative Urine Glucose (UA) Negative Urine Ketones Negative Urine Occult Blood 2+ H Urine Nitrate Negative Urine Bilirubin Negative Urine Urobilinogen 0.2 Ur Leukocyte Esterase 1+ H Urine RBC 5-10/hpf H Urine WBC 5-10/hpf H Ur Squamous Epith Cells 1-5 /hpf Urine Bacteria Few (2-10) H Ur Culture Indicated? Specimen cultured Vol Urine Centrifuged 10ml (spun) [facility] Medical History Coronary artery disease Hypertension Congestive heart failure Surgical History History of implantable cardiac defibrillator (ICD) Social History household members: spouse Smoking Status: Never smoker alcohol intake: current Assessment & Plan Assessment & Plan narrative: 1. Left intertrochanteric hip fracture. POD #5. Doing well. Anticipating SNF for rehab. Hgb dropped to 7.7 so she received an iron infusion with an increase to 8.1 the next day. The aspirin was stopped. She had epigastric tenderness. The facial bruising has followed some dependent progression. Anesthesia was contacted and were able to reassure the family. She is already on a PPI. The Hgb is stable today at 8.1. 2. Congestive heart failure with 35-40% ejection fraction. Continue routine medication follow closely in the postoperative period for volume overload. Resumed Diuretics. 3. Coronary artery disease. Clinically stable. EKG and Echo reviewed. Resumed Metoprolol, torsemide, spironolactone and Losartan. 4. Hypertension. Spironolactone, metoprolol and losartan. 5. Hyperlipidemia. Continue routine medication. 6. SERGE/CKD. Creatinine 1.08. 7. Depression continue SSRI. 8. DVT prophylaxis: Sequential compression devices, postoperative management per Orthopedics. 9. Code status: Full code. Plan: -Post operative management per Orthopedics -anesthesia spoke with the family about the bruising on the face. -stopped aspirin due to progressive anemia and epigastric tenderness -continue Protonix -consider referral to surgery for EGD. -follow H/H. -resumed Metoprolol and Losartan, spironolactone and torsemide -Pending [facility] on 10/17/24 -SCD for DVT prevention Time-Based Coding :: [TOTAL MINUTES] spent with patient and on the chart (including review of chart, obtaining history, exam, reviewing outside data, placing orders, documenting exam and treatment plan, and counseling patient) on [DATE].
[2024-10-15 08:00] VITALS: BP 100/57; PULSE 92; RESP 17; TEMP 36.2; O2SAT 95
--- NOTE | 2024-10-15 08:20 | P.PN_ITS ---
Subjective Subjective Date Patient Seen: 10/15/24 Time Patient Seen: 08:20 Interval history: Pt sitting up in bed, brushing her hair. Spouse and other family at bedside. Plan is for discharge on Thursday, 10/17, to a SNF in [place] where the pts spouse and other family members can be with her any time they wish. She is feeling well. ASA has been held d/t epigastric pain. Exam Vital Signs (past 8 hours): - 10/15/24 03:00 Temperature 98.1 F Pulse Rate 89 Respiratory Rate 18 Blood Pressure 102/60 Pulse Oximetry 92 Oxygen Flow Rate 0 Fraction of Inspired Oxygen 28 SaO2/FiO2 Ratio 350 Oxygen Delivery Method Room Air Oxygen Flow Rate 0 Narrative Exam Narrative: 3/5 hip flexors, quadriceps, hamstrings; 5/5 PF, DF, EHL on left. Sensation to light touch intact throughout LLE. Calf has SCD in place; soft and compressible. Dressings placed intraoperatively have been changed to Aquacels and are CDI. Objective Labs 10/15/24 05:30 10/14/24 05:40 Labs: Laboratory Results - last 24 hr 10/14/24 10/14/24 10/15/24 05:40 18:00 05:30 WBC 7.8 RBC 2.47 L Hgb 8.1 L Hct 24.3 L MCV 98.2 MCH 32.8 MCHC 33.4 RDW 14.4 Plt Count 189 Neut % (Auto) 72.1 Lymph % (Auto) 16.9 L [place] % (Auto) 6.7 Eos % (Auto) 3.5 Baso % (Auto) 0.8 Neut # (Auto) 5600 Lymph # (Auto) 1300 [place] # (Auto) 500 Eos # (Auto) 300 Baso # (Auto) 100 Vitamin B12 956 H TSH 1.49 Urine Color Yellow Urine Appearance Clear Urine pH 5.5 Ur Specific [place] 1.010 Urine Protein Negative Urine Glucose (UA) Negative Urine Ketones Negative Urine Occult Blood 2+ H Urine Nitrate Negative Urine Bilirubin Negative Urine Urobilinogen 0.2 Ur Leukocyte Esterase 1+ H Urine RBC 5-10/hpf H Urine WBC 5-10/hpf H Ur Squamous Epith Cells 1-5 /hpf Urine Bacteria Few (2-10) H Ur Culture Indicated? Specimen cultured Vol Urine Centrifuged 10ml (spun) [facility] Medical History Coronary artery disease Hypertension Congestive heart failure Surgical History History of implantable cardiac defibrillator (ICD) Social History household members: spouse Smoking Status: Never smoker alcohol intake: current Assessment & Plan Post-op Assessment and plan (1) Closed hip fracture: Assessment and Plan narrative: 1) Pain control, VTE prophylaxis, disposition per hospitalist service. Recommend enoxaparin x 4 weeks if medically appropriate and pt unable to take ASA. 2) F/u w/ ortho in 2 weeks for wound check 3) Weightbearing as tolerated to left leg. Postoperative Procedures: Procedures Operation Date: 10/10/24 14:15 Actual Procedure Side Surgeon p intertrochanteric hip Left Darion Sullivan MD Postoperative day: 5
[2024-10-15] MEDS: TOPIRAMATE 100 MG TABLET 200 MG PO ×2 (09:46→20:34)
[2024-10-15] MEDS: SPIRONOLACTONE 25 MG TABLET PO (09:46)
[2024-10-15] MEDS: PARoxetine 20 MG TABLET 40 MG PO (09:46)
[2024-10-15] MEDS: TORSEMIDE 10 MG TABLET 40 MG PO (09:46)
[2024-10-15] MEDS: POTASSIUM CHLORIDE 10 MEQ TAB PO (09:47)
[2024-10-15] MEDS: methocarbamoL 500 MG TABLET PO ×3 (09:47→20:34)
[2024-10-15] MEDS: MEXILETINE 150 MG 150 EACH PO ×2 (11:32→20:35)
[2024-10-15] MEDS: SPIRONOLACTONE 25 MG TABLET 12.5 MG PO (11:35)
[2024-10-15] MEDS: PANTOPRAZOLE DR 40 MG TABLET PO (11:43)
--- NOTE | 2024-10-15 11:45 | PT.IPTN ---
Current Diagnoses Fracture of unspecified part of neck of left femur, initial encounter for closed fracture (10/09/24) Surgery Performed Operation Date: 10/10/24 14:15 Actual Procedures p intertrochanteric hip(Left) - Darion Sullivan MD Physical Therapy Treatment Note M2 PT-IP Current Condition Start: 10/11/24 14:39 Freq: NEEDED Status: Active Protocol: Document 10/14/24 14:02 AB (Rec: 10/14/24 15:11 AB [id number]) Physical Therapy Current Condition Current Condition Evaluation Date 10/11/24 Treatment Diagnosis L femur fx s/p ORIF; difficulty in walking Onset Date 10/09/24 M3 PT-IP Subjective Start: 10/11/24 14:39 Freq: NEEDED Status: Active Protocol: Document 10/15/24 11:45 AB(2) (Rec: 10/15/24 13:27 AB(2) [id number]) Subjective Physical Therapy Visit Type Type Treatment Note Visit Start Time 11:45 Visit Stop Time 12:15 Number of VIDEOTAPE OPERATOR Visits 0 Physical Therapy Visit Comments Patient Comments agreeable to do PT Therapy Pain Assessment Pain When Pain Assessed At Rest Pain Present Pain Present Pain Reported Location Left Hip Intensity 6 Scale Used increases with mobility Pain Behaviors Calling Out,Facial Grimacing, Holding Area,Moaning, Restlessness,Wincing Pain Management Techniques Apply Cold,Distraction, Modification of Treatment,Re- positioning,Timing of Activity with Medications M4 PT-IP Mobility and Gait Start: 10/11/24 14:39 Freq: NEEDED Status: Active Protocol: Document 10/15/24 11:45 AB(2) (Rec: 10/15/24 13:27 AB(2) [id number]) PT-Bed Mobility Assessment Supine to Sit Supine to Sit Maximum Assistance,1 Person Assistance,2 Person Assistance ,Head of Bed Elevated,Bedrails Scooting Scooting to Edge of Bed Maximum Assistance PT-Transfer Assessment Sit to and From Stand Sit to and from Stand Maximum Assistance,2 Person Assistance,Use of Upper Extremities Equipment Transfer Assistive Device Gait Belt,Front Wheeled Walker Orthotic/Prosthetic Devices or Brace: No Transfers Transfer Destination Chair Transfer Technique Stand Step Pivot Transfer Ability Level of Assist Maximum Assistance,2 Person Assistance,Use of Upper Extremities Comments Mobility Comments pt in bed and agreeable to do PT. asked family to wait in waiting area due to pt's easy distractability and increase anxiety. family agreed. pt completed supine LLE heel slides prior to mobility. pt completed supine to sit max A x 1-2 and max cues with HOB elevated and use of bed rail. pt needs increase time to complete tasks. pt c/o increase L hip pain with mobility. required constant reassurance to calm down as pt can get anxious easily and calls out due to pain. pt sat on EOB min A. max A for scooting to EOB. sit to stand max A x 2 and max cues. pt only tolerated ~ 5 sec on first standing and needing to sit down. pt rested. informed pt that she is going to transfer into the chair and agreed. sit to stand EOB max A x 2 and max cues. completed step transfer to chair using fWW max A x 2 and max cues. required one step instructions . needing assist for weight shifting, moving LE and to stabilize LLE. pt increase guarding and trunk stiffening affecting mobility and level of assistance. pt rested on chair after transfer. agreed to get up and and walk. sit to stand from chair max A x 2 and max cues and was able to take ~ 3-4 steps using FWW max A x 2 and max cues and chair follow. positioned pt on the chair. call light and table placed within reach. Gait Assessment Gait Gait Assistance Required: Maximum Assistance,2 Person Assist Distance (Feet) 2 Able to Maintain Weight Bearing Status Yes During Gait Assistive Devices Assistive Device Gait Belt,Front Wheeled Walker Orthotic/Prosthetic Devices or Brace: No Gait Deviations General Gait Pattern Decreased Stride Length, Decreased Feet Clearance,Step- to Gait Factors Limiting Gait Function Factors Limiting Gait Function Decreased Activity Tolerance, Decreased Strength,Difficulty Following Directions,Limited Range of Motion,Pain,Poor Balance,Poor Safety Awareness M5 PT-IP Objective Assessments Start: 10/11/24 14:39 Freq: NEEDED Status: Active Protocol: Document 10/13/24 09:47 AB (Rec: 10/13/24 10:52 AB [id number]) Orientation Orientation/Cognition Level of Alertness Alert Orientation Birthday,Month,Year,Situation Language Function Ability No Deficits Noted Safety Awareness Decreased Safety Awareness Memory Description Short Term Impaired,Experience Planning Strategist Impaired M6 PT-IP Treatment Start: 10/11/24 14:39 Freq: NEEDED Status: Active Protocol: Document 10/15/24 11:45 AB(2) (Rec: 10/15/24 13:27 AB(2) [id number]) Physical Therapy Treatment Exercises Exercises Heel Slides Education Education Provided Safety M7 PT-IP Assessment and Plan Start: 10/11/24 14:39 Freq: NEEDED Status: Active Protocol: Document 10/15/24 11:45 AB(2) (Rec: 10/15/24 13:27 AB(2) [id number]) PT Summary Assessment and Plan Potential Rehabilitation Potential Fair Summary Impairments Pain,ROM,Strength,Balance, Coordination,Sensation,Tone, Cognition,Bed Mobility, Transfers,Gait,Activity Tolerance Progress Towards Goals Slow Progress due to Pain,Slow Progress due to Activity Tolerance Assessment Summary pt progressing slowly with mobility but continues to require max A x 2 for mobility . pt continues to c/o increase L hip pain and pt with high anxiety affecting mobility. pt will require SNF rehab to improve overall strength and mobility independence. Goals Bed Mobility Goal Minimal Assistance Transfer Goal Minimal Assistance,Front Wheeled Walker Gait Goal Minimal Assistance,Front Wheel Walker Gait Distance 25 Other Goals improve bed mobility, transfers, ambulation using FWW ~ 100 ft SBA Days to Meet Goals 10 Frequency of Treatment Other frequency 1-2x/day Treatment Plan Physical Therapy Treatment Plan Bed Mobility Training,Transfer Training,Gait Training, Therapeutic Exercise,Balance Retraining,Post Op Education, Discharge Planning,Hot or Cold Pack,Neuromuscular Re-ed, Coordination Retraining,Manual Therapy Weight Bearing Status Weight Bearing Status Weight Bear as Tolerated Allowed Weight Bearing Amount (enter % LLE WBAT or #) (%) Recommendations To Nursing Amount of Assist Needed Mechanical Lift Discharge Recommendations PT Discharge Recommendations SNF Rehab Transportation Needs at Discharge Wheelchair/Cabulance,Stretcher /Ambulance
--- NOTE | 2024-10-15 12:57 | CM.DPNOTE ---
DCP note SUPERVISOR PLATE FORMING reviewed EMR. per hospitalist, H&H stabilizing, getting closer to being medically stable to dc to SNF. hospitalist signed PASRR. SUPERVISOR PLATE FORMING spoke with Pedro (f [phone] and p [phone]) Iker CAMARA. faxed clinicals for review. auth pending. Pedro double checking if they are contracted with [facility]. SUPERVISOR PLATE FORMING met with pt, spouse Loki, and two adult children in room and one on speaker phone. Reviewed plan of tentative acceptance from [facility], and that their admissions person is reviewing if spouse can stay overnight in private room and will give final verdict Thursday. SUPERVISOR PLATE FORMING reviewed that [facility] auth is pending. pt and family report that if the only concern is spouse not being able to stay the night and they could accept pt otherwise their preference remains for pt to dc to [facility]. pt and family report preference for [facility]. was quoted roughly $220 from a [facility] agency, but express no preference for agency pending it is in that [place] range. family would appreciate our team's help in scheduling transport due to us being in closer contact with [facility] for timing. report for transport to call spouse Loki ([phone]) for payment. SUPERVISOR PLATE FORMING answered questions about [facility] to best of ability. Plan: NEED to fax [facility] updated clinicals Thursday for review first thing Thursday and schedule van transport, iker auth, and official acceptance from [facility] Thursday. CM team will continue to follow closely TERESA Bowers
--- NOTE | 2024-10-15 13:31 | CM.DPC ---
DCP continued per iker Vasquez CM, authorized SNF for pt. #[id number]. confirmed contracted with [facility]. FPGA DESIGN ENGINEER updated pt and spouse in room. excited to hear the news. See other CM note from today for further DCP details. SL
--- NOTE | 2024-10-15 14:25 | PT.IPTN ---
Current Diagnoses Fracture of unspecified part of neck of left femur, initial encounter for closed fracture (10/09/24) Surgery Performed Operation Date: 10/10/24 14:15 Actual Procedures p intertrochanteric hip(Left) - Darion Sullivan MD Physical Therapy Treatment Note M2 PT-IP Current Condition Start: 10/11/24 14:39 Freq: NEEDED Status: Active Protocol: Document 10/14/24 14:02 AB (Rec: 10/14/24 15:11 AB [id number]) Physical Therapy Current Condition Current Condition Evaluation Date 10/11/24 Treatment Diagnosis L femur fx s/p ORIF; difficulty in walking Onset Date 10/09/24 M3 PT-IP Subjective Start: 10/11/24 14:39 Freq: NEEDED Status: Active Protocol: Document 10/15/24 14:25 AB(2) (Rec: 10/15/24 16:19 AB(2) [id number]) Subjective Physical Therapy Visit Type Type Treatment Note Visit Start Time 14:25 Visit Stop Time 15:00 Number of MIXED LIVESTOCK FARMER Visits 0 Physical Therapy Visit Comments Patient Comments agreeable to do PT Therapy Pain Assessment Pain When Pain Assessed At Rest Pain Present Pain Present Pain Reported Location Left Hip Intensity 6 Scale Used Numeric (0 - 10) Pain Management Techniques Distraction,Modification of Treatment,Re-positioning, Timing of Activity with Medications M4 PT-IP Mobility and Gait Start: 10/11/24 14:39 Freq: NEEDED Status: Active Protocol: Document 10/15/24 14:25 AB(2) (Rec: 10/15/24 16:19 AB(2) [id number]) PT-Bed Mobility Assessment Sit to Supine Sit to Supine Maximum Assistance,2 Person Assistance,Bedrails PT-Transfer Assessment Sit to and From Stand Sit to and from Stand Moderate Assistance,Maximum Assistance,2 Person Assistance ,Use of Upper Extremities Equipment Transfer Assistive Device Gait Belt,Front Wheeled Walker Orthotic/Prosthetic Devices or Brace: No Transfers Transfer Destination Bed,Bedside Commode Transfer Technique Stand Step Pivot Transfer Ability Level of Assist Maximum Assistance,2 Person Assistance,Use of Upper Extremities Comments Mobility Comments pt sitting on the chair. family in room and requested again to go to waiting room for pt to be able to focus on PT as pt tends to get easily distracted and anxious. family understood and left. pt agreed to walk and requested to go back to bed afterwards. pt c/o increase L hip pain. nurse informed that pt gets pain meds every 6 hours and is not time yet. pt completed sit to stand from chair mod A x 2 and max cues. pt requiring constant one step commands with all tasks. pt completed ambulation using FWW ~ 5 ft max A x and max cues and with chair follow. pt then stated that she needs to use the toilet. completed sit to stand from chair max A x 2 and cues and step transfer to bedside commode max A x 2 and max cues. needs assist with weight shifting and to move BLE, assist to stabilize LLE to prevent from buckling. pt completed sit to stand from the bedside commode max A x 2 and max cues. needs assist with hygiene care and brief management. max A x 1-2 for standing balance using fWW. ambulated from bedside commode to bed ~ 3 ft using FWW max A x 2 and max cues. sit to supine max A x 2 and max cues. positioned pt in bed. nurse in room to give IV meds to pt. left pt with NAD and nurse. Gait Assessment Gait Gait Assistance Required: Maximum Assistance,2 Person Assist Distance (Feet) 5 Able to Maintain Weight Bearing Status Yes During Gait Assistive Devices Assistive Device Gait Belt,Front Wheeled Walker Orthotic/Prosthetic Devices or Brace: No Gait Deviations General Gait Pattern Decreased Stride Length, Decreased Feet Clearance,Step- to Gait Factors Limiting Gait Function Factors Limiting Gait Function Decreased Activity Tolerance, Decreased Strength,Difficulty Following Directions,Limited Range of Motion,Pain,Poor Balance,Poor Safety Awareness M5 PT-IP Objective Assessments Start: 10/11/24 14:39 Freq: NEEDED Status: Active Protocol: Document 10/13/24 09:47 AB (Rec: 10/13/24 10:52 AB [id number]) Orientation Orientation/Cognition Level of Alertness Alert Orientation Birthday,Month,Year,Situation Language Function Ability No Deficits Noted Safety Awareness Decreased Safety Awareness Memory Description Short Term Impaired,Dry Yard Worker Impaired M6 PT-IP Treatment Start: 10/11/24 14:39 Freq: NEEDED Status: Active Protocol: Document 10/15/24 14:25 AB(2) (Rec: 10/15/24 16:19 AB(2) [id number]) Physical Therapy Treatment Education Education Provided Safety M7 PT-IP Assessment and Plan Start: 10/11/24 14:39 Freq: NEEDED Status: Active Protocol: Document 10/15/24 14:25 AB(2) (Rec: 10/15/24 16:19 AB(2) [id number]) PT Summary Assessment and Plan Potential Rehabilitation Potential Fair Summary Impairments Pain,ROM,Strength,Balance, Coordination,Sensation,Tone, Cognition,Bed Mobility, Transfers,Gait,Activity Tolerance Progress Towards Goals Slow Progress due to Pain,Slow Progress due to Medical Issues,Slow Progress due to Activity Tolerance,Slow Progress - Other Assessment Summary pt requiring max A x 2 for transfers and able to take a few steps using FWW max A x 2 and max cues. pt requiring max cues with all tasks. pt will benefit from SNF rehab to improve overall strength and function. Goals Bed Mobility Goal Minimal Assistance Transfer Goal Minimal Assistance,Front Wheeled Walker Gait Goal Minimal Assistance,Front Wheel Walker Gait Distance 25 Other Goals improve bed mobility, transfers, ambulation using FWW ~ 100 ft SBA Days to Meet Goals 10 Frequency of Treatment Other frequency 1-2x/day Treatment Plan Physical Therapy Treatment Plan Bed Mobility Training,Transfer Training,Gait Training, Therapeutic Exercise,Balance Retraining,Post Op Education, Discharge Planning,Hot or Cold Pack,Neuromuscular Re-ed, Coordination Retraining,Manual Therapy Weight Bearing Status Weight Bearing Status Weight Bear as Tolerated Allowed Weight Bearing Amount (enter % LLE WBAT or #) (%) Recommendations To Nursing Amount of Assist Needed Mechanical Lift Discharge Recommendations PT Discharge Recommendations SNF Rehab Transportation Needs at Discharge Wheelchair/Cabulance,Stretcher /Ambulance
[2024-10-15] MEDS: IRON SUCROSE 100 MG in SODIUM CHLORIDE 0.9% 100 ML 420 MG IV (14:38)
[2024-10-15] MEDS: cephALEXin 250 MG CAPSULE 500 MG PO ×2 (15:31→20:33)
[2024-10-15 16:00] VITALS: BP 101/50; PULSE 100; RESP 16; TEMP 36.3; O2SAT 97
[2024-10-15 20:00] VITALS: BP 101/61; PULSE 101; RESP 18; TEMP 36.9; O2SAT 95
[2024-10-15] MEDS: LORazepam 2 MG/ML INJ 0.5 MG IV (20:31)
[2024-10-15] MEDS: CHOLECALCIFEROL (VITAMIN D3) 1,000 UNIT TABLET 2000 UNIT PO (20:33)
[2024-10-15] MEDS: ATORVASTATIN 20 MG TABLET 40 MG PO (20:33)
[2024-10-15 20:34] VITALS: BP 101/64; PULSE 102
[2024-10-15] MEDS: METOPROLOL ER 25 MG TABLET PO (20:34)
[2024-10-15] MEDS: diphenhydrAMINE 50 MG/ML VIAL IV (22:14)
--- NOTE | 2024-10-15 23:21 | PC.NURSE ---
Addendum entered by Jeni Nagel R.N. 10/16/24 07:03: this nurse explained to patient's spouse that the reason she's not taking her aspirin is due to her epigastric pain per MD notes. Original Note: Patient spouse Loki is concerned that his isn't getting her home medications such as potassium 10 meq tid, aspirin 81 mg (2 tabs daily) and b-12 1,000mcg. pt declining to be turn in bed every 2 hours due to unable to sleep. pt educated in regards pressure sore prevention by this nurse as well as her spouse. Plan is to turn patient in bed every 6 hours which is she can have pain medications.
[2024-10-16] MEDS: TRAMADOL 50 MG TABLET PO ×4 (01:58→22:03)
[2024-10-16] MEDS: methocarbamoL 500 MG TABLET PO ×3 (01:58→16:12)
[2024-10-16 02:17] VITALS: BP 133/83; PULSE 73; RESP 18; TEMP 36.1; O2SAT 96
[2024-10-16 08:00] VITALS: BP 106/60; PULSE 80; RESP 17; TEMP 36.4; O2SAT 99
--- NOTE | 2024-10-16 08:03 | PM.PN.1 ---
Subjective Subjective Date Patient Seen: 10/16/24 Interval history: She is seen today to follow-up her postop anemia blood loss, urinary tract infection and complicated discharge planning. Her urine culture is growing Enterococcus. This is from a Blanco catheter specimen. She has no UTI symptoms but family are pressing to treat it. She will be going to [facility] in 1-2 days. Exam Vital Signs (past 8 hours): - 10/16/24 02:17 Temperature 96.9 F L Pulse Rate 73 Respiratory Rate 18 Blood Pressure 133/83 Pulse Oximetry 96 Oxygen Flow Rate 0 Fraction of Inspired Oxygen 28 SaO2/FiO2 Ratio 350 Oxygen Delivery Method Room Air Oxygen Flow Rate 0 Narrative Exam Narrative: Alert and oriented x3. Not very motivated to move around. No apparent distress. Bruising on the face is fading. Heart is regular rate and rhythm without murmur Lungs are clear to auscultation bilaterally Extremities have no ankle edema Objective Labs 10/16/24 10:40 10/14/24 05:40 [facility] Medical History Coronary artery disease Hypertension Congestive heart failure Surgical History History of implantable cardiac defibrillator (ICD) Social History household members: spouse Smoking Status: Never smoker alcohol intake: current Assessment & Plan Assessment & Plan narrative: 1. Left intertrochanteric hip fracture. POD #6. Doing well. Anticipating SNF for rehab. Hgb dropped to 7.7 so she received an iron infusion with an increase to 8.1 the next day. The aspirin was stopped. She had epigastric tenderness. The facial bruising has followed some dependent progression. Anesthesia was contacted and were able to reassure the family. She is already on a PPI. The Hgb is up today at 8.5. 2. Congestive heart failure with 35-40% ejection fraction. Resumed Diuretics. 3. Coronary artery disease. Clinically stable. EKG and Echo reviewed. Resumed Metoprolol, torsemide, spironolactone and Losartan. 4. Hypertension. Spironolactone, metoprolol and losartan. 5. Hyperlipidemia. Continue routine medication. 6. SERGE/CKD. Creatinine 1.08. 7. Depression continue SSRI. 8. Enterococcus blanco catheter colonization. Treat per family request. Macrobid. 9. DVT prophylaxis: Sequential compression devices, postoperative management per Orthopedics. Start Lovenox. 10. Code status: Full code. Plan: -Post operative management per Orthopedics -anesthesia spoke with the family about the bruising on the face. -stopped aspirin due to progressive anemia and epigastric tenderness -continue Protonix -consider referral to surgery for EGD. -follow H/H. -resumed Metoprolol and Losartan, spironolactone and torsemide -Pending [facility] on 10/17/24 -SCD for DVT prevention, Add Lovenox on 10/16 as the Hgb is now rising. Time-Based Coding :: [TOTAL MINUTES] spent with patient and on the chart (including review of chart, obtaining history, exam, reviewing outside data, placing orders, documenting exam and treatment plan, and counseling patient) on [DATE].
[2024-10-16] MEDS: TORSEMIDE 10 MG TABLET 40 MG PO (08:25)
[2024-10-16] MEDS: MEXILETINE 150 MG 150 EACH PO ×2 (08:25→20:45)
[2024-10-16] MEDS: cephALEXin 250 MG CAPSULE 500 MG PO ×3 (08:25→20:31)
[2024-10-16] MEDS: PARoxetine 20 MG TABLET 40 MG PO (08:26)
[2024-10-16] MEDS: SPIRONOLACTONE 25 MG TABLET 12.5 MG PO (08:26)
[2024-10-16] MEDS: PANTOPRAZOLE DR 20 MG TABLET 40 MG PO (08:26)
[2024-10-16] MEDS: TOPIRAMATE 100 MG TABLET 200 MG PO ×2 (08:26→20:33)
[2024-10-16] MEDS: POTASSIUM CHLORIDE 10 MEQ TAB PO (08:27)
[2024-10-16] MEDS: SODIUM CHLORIDE 0.9% FLUSH 10 ML IV ×2 (08:29→20:45)
--- NOTE | 2024-10-16 09:36 | P.PN_ITS ---
Subjective Subjective Interval history: PATIENT SUMMARY Adeline Flynn, a 74-year-old female, is admitted for management of a left hip trochanteric femur fracture, post-op day five, following intramedullary nailing. PAST SURGICAL HISTORY - Intramedullary nailing of left hip trochanteric femur fracture performed by ms on 2024-10-11. SUBJECTIVE The patient reports difficulty walking and pain during ambulation. The patient is currently responding appropriately to questions and is interacting normally. She denies severe pain currently. No acute events overnight PMH: The patient has a past medical history of congestive heart failure, coronary artery disease, hypertension, and hyperlipidemia. POSTOPERATIVE COURSE: She experienced a postoperative hemoglobin drop, managed with an iron infusion, and has noted kidney injury with a creatinine level of 1.08. She has been switched from aspirin to lovenox PHYSICAL EXAM Constitutional: - The patient is lying in bed, responding appropriately to questions and interacting. Some ecchymosis is present around her chin with no active bleeding, likely related to anesthesia during the procedure. Musculoskeletal: LLE: - Intact plantar flexion and dorsiflexion of ankles. Femoral nerve function is intact as evidenced by quad function. Well perfused foot with palpable PT pulse. Dressings over hip clean dry intact. ASSESSMENT Differential diagnosis includes: 1. Postoperative pain and rehabilitation following intramedullary nailing of left intertrochanteric femur fracture. 2. Urinary tract infection being treated with antibiotics. 3. Anemia managed with iron infusion. 4. Kidney injury noted during admission. PLAN - Continue using Lovenox for DVT prophylaxis. - Repeat urinalysis to monitor urinary tract infection and adjust antibiotics if necessary. - Encourage weight-bearing as tolerated and continue physical therapy to stimulate bone healing. - Plan for a two-week follow-up for wound check and possible x-rays. - Monitor healing process with regular x-rays in outpatient setting. - Discharge planning to a nursing facility. DISPOSITION Planned discharge to a nursing facility likely tomorrow. Exam Vital Signs (past 8 hours): - 10/16/24 02:17 10/16/24 08:00 Temperature 96.9 F L 97.5 F L Pulse Rate 73 80 Respiratory Rate 18 17 Blood Pressure 133/83 106/60 Pulse Oximetry 96 99 Oxygen Flow Rate 0 0 Fraction of Inspired Oxygen 28 SaO2/FiO2 Ratio 350 Oxygen Delivery Method Room Air Oxygen Flow Rate 0 Objective Labs 10/15/24 05:30 10/14/24 05:40 [facility] Medical History Coronary artery disease Hypertension Congestive heart failure Surgical History History of implantable cardiac defibrillator (ICD) Social History household members: spouse Smoking Status: Never smoker alcohol intake: current Assessment & Plan Time-Based Coding :: [TOTAL MINUTES] spent with patient and on the chart (including review of chart, obtaining history, exam, reviewing outside data, placing orders, documenting exam and treatment plan, and counseling patient) on [DATE].
[2024-10-16 10:34] LABS: Appearance Urine UA CLEAR; Bilirubin Urine UA NEGATIVE (NEGATIVE); Color Urine UA YELLOW; Glucose Urine UA NEGATIVE (Negative); Ketones Urine UA NEGATIVE (NEGATIVE); Leukocyte Esterase Urine UA NEGATIVE (NEGATIVE); Nitrite Urine UA NEGATIVE (Negative); Occult Blood Urine UA 1+ (Negative); Protein Urine UA NEGATIVE (Negative)
[2024-10-16] MEDS: NITROFURANTOIN ER 100 MG CAPSULE PO ×2 (10:48→20:32)
[2024-10-16 10:54] LABS: Add Manual Diff / Slide Review NO; Basophils Absolute Auto 0 /uL (0-100); Basophils Percent Auto 0.4 % (0-2); Eosinophils Absolute Auto 200 /uL (0-450); Eosinophils Percent Auto 3.2 % (2-4); Hematocrit 25.6 % (36-46); Hemoglobin 8.5 g/dL (12.0-16.0); Lymphocytes Absolute Auto 1000 /uL (1100-4500); Lymphocytes Percent Auto 15.3 % (25-40); Mean Corpuscular HGB Conc 33.4 % (30-36); Mean Corpuscular Hemoglobin 33.1 PG (26-34); Mean Corpuscular Volume 99.3 fL (80-100); Monocytes Absolute Auto 500 /uL (0-900); Monocytes Percent Auto 7.6 % (3-14); Neutrophils Absolute Auto 5000 /uL (1500-7000); Neutrophils Percent Auto 73.5 % (50-75); Platelet Count 217 X10^3/uL (150-400); Red Blood Cell Count 2.58 X10^6/uL (4.0-5.2); White Blood Cell Count 6.8 X10^3/uL (4.5-11.0)
[2024-10-16 11:05] LABS: Bacteria Urine None Seen; Culture Indicated Urine Cult Not Indicated; RBC Urine 1-5/HPF (0-5/HPF); Squamous Epithelial Cell Urine 10-30 /HPF (0-5/HPF); Urine Volume 10mL (spun); WBC Urine 1-5/HPF (0-5/HPF)
--- NOTE | 2024-10-16 11:24 | PT.IPTN ---
Current Diagnoses Fracture of unspecified part of neck of left femur, initial encounter for closed fracture (10/09/24) Surgery Performed Operation Date: 10/10/24 14:15 Actual Procedures p intertrochanteric hip(Left) - Darion Sullivan MD Physical Therapy Treatment Note M2 PT-IP Current Condition Start: 10/11/24 14:39 Freq: NEEDED Status: Active Protocol: Document 10/14/24 14:02 AB (Rec: 10/14/24 15:11 AB [id number]) Physical Therapy Current Condition Current Condition Evaluation Date 10/11/24 Treatment Diagnosis L femur fx s/p ORIF; difficulty in walking Onset Date 10/09/24 M3 PT-IP Subjective Start: 10/11/24 14:39 Freq: NEEDED Status: Active Protocol: Document 10/16/24 10:50 KS (Rec: 10/16/24 12:26 KS [id number]) Subjective Physical Therapy Visit Type Type Treatment Note Visit Start Time 10:50 Visit Stop Time 11:24 Number of PRIMARY TEACHING ASSISTANT Visits 1 Physical Therapy Visit Comments Patient Comments agreeable to do PT, family present Therapy Pain Assessment Pain When Pain Assessed During Mobility Pain Present Pain Present Pain Reported Location Left Hip Scale Used not quantified Pain Behaviors Facial Grimacing,Holding Area, Moaning,Restlessness,Wincing Pain Management Techniques Apply Cold,Distraction, Modification of Treatment,Re- positioning,Timing of Activity with Medications M4 PT-IP Mobility and Gait Start: 10/11/24 14:39 Freq: NEEDED Status: Active Protocol: Document 10/16/24 10:50 KS (Rec: 10/16/24 12:26 KS [id number]) PT-Bed Mobility Assessment Supine to Sit Supine to Sit Moderate Assistance,2 Person Assistance Scooting Scooting to Edge of Bed Maximum Assistance PT-Transfer Assessment Sit to and From Stand Sit to and from Stand Moderate Assistance,Maximum Assistance,2 Person Assistance ,Use of Upper Extremities Equipment Transfer Assistive Device Gait Belt,Front Wheeled Walker Orthotic/Prosthetic Devices or Brace: No Transfers Transfer Destination Chair Transfer Technique Stand Step Pivot Transfer Ability Level of Assist Maximum Assistance,2 Person Assistance,Use of Upper Extremities Comments Mobility Comments Pt in bed upon arrival and agreeale to PT, but reporting high level of fatigue. Mod A x2 for sup<>sit, Max A for scooting EOB. Pt uses handrail to maintain seated balance. Requires rest breaks between tasks. Mod A x2 for sit<>stand w/ FWW. Pt braces herself against bed frame with back of legs. Pt unable to advance her own LEs for stand step pivot transfer requiring Max A from RN for sliding feet/ stepping and Max A from PRIMARY TEACHING ASSISTANT to maintain standing balance and FWW mgmt. Max A for slow descent to chair. After seated rest break, pt sit<>stand Max A x1 w/ FWW and pushing from chair armrests to stand. Again needs cues and assistance to move legs forward/stop leaning against chair for balance. Retrolean requiring Mod to Max A to maintain balance. Pt limite dby high level fo pain and weakness. Max A for slow descent to sitting. Reviewed LE exs and pt left in chair w/ all needs in reach. Gait Assessment Gait Gait Assistance Required: Maximum Assistance,2 Person Assist Distance (Feet) 4 Able to Maintain Weight Bearing Status Yes During Gait Assistive Devices Assistive Device Gait Belt,Front Wheeled Walker Orthotic/Prosthetic Devices or Brace: No Gait Deviations General Gait Pattern Decreased Stride Length, Decreased Feet Clearance,Step- to Gait Factors Limiting Gait Function Factors Limiting Gait Function Decreased Activity Tolerance, Decreased Strength,Difficulty Following Directions,Limited Range of Motion,Pain,Poor Balance,Poor Safety Awareness Comments Gait Comments Unable to advance gait, stand step pivot only. PT-Balance Assessment Sitting Balance and Reactions Static Sitting Balance Ability Fair Dynamic Sitting Balance Ability Poor Standing Balance and Reactions Static Standing Balance Ability Poor Dynamic Standing Balance Ability Poor Device Used FWW M5 PT-IP Objective Assessments Start: 10/11/24 14:39 Freq: NEEDED Status: Active Protocol: Document 10/13/24 09:47 AB (Rec: 10/13/24 10:52 AB [id number]) Orientation Orientation/Cognition Level of Alertness Alert Orientation Birthday,Month,Year,Situation Language Function Ability No Deficits Noted Safety Awareness Decreased Safety Awareness Memory Description Short Term Impaired,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 M6 PT-IP Treatment Start: 10/11/24 14:39 Freq: NEEDED Status: Active Protocol: Document 10/16/24 10:50 KS (Rec: 10/16/24 12:26 KS [id number]) Physical Therapy Treatment Exercises Exercises Ankle Pumps,Gluteal Sets,Quad Sets,Heel Slides Education Education Provided Safety M7 PT-IP Assessment and Plan Start: 10/11/24 14:39 Freq: NEEDED Status: Active Protocol: Document 10/16/24 10:50 KS (Rec: 10/16/24 12:26 KS [id number]) PT Summary Assessment and Plan Potential Rehabilitation Potential Fair Summary Impairments Pain,ROM,Strength,Balance, Coordination,Sensation,Tone, Cognition,Bed Mobility, Transfers,Gait,Activity Tolerance Progress Towards Goals Slow Progress due to Pain,Slow Progress due to Medical Issues,Slow Progress due to Activity Tolerance,Slow Progress - Other Assessment Summary Pt required Mod A x2 for bed mobility and Max A x1-2 for sit<>stand and Max A x2 for stand step pivot transfer as well as Max A for scooting to EOB or EOC. She fatigues quickly and is limited by pain and weakness. She was unable to advance her LEs and required Max A from RN to move BLE for stand step pivot transfer as well as Max A to maintain standing balance. She will require SNF to improve functional mobility. Goals Bed Mobility Goal Minimal Assistance Transfer Goal Minimal Assistance,Front Wheeled Walker Gait Goal Minimal Assistance,Front Wheel Walker Gait Distance 25 Other Goals improve bed mobility, transfers, ambulation using FWW ~ 100 ft SBA Days to Meet Goals 10 Frequency of Treatment Other frequency 1-2x/day Treatment Plan Physical Therapy Treatment Plan Bed Mobility Training,Transfer Training,Gait Training, Therapeutic Exercise,Balance Retraining,Post Op Education, Discharge Planning,Hot or Cold Pack,Neuromuscular Re-ed, Coordination Retraining,Manual Therapy Weight Bearing Status Weight Bearing Status Weight Bear as Tolerated Allowed Weight Bearing Amount (enter % LLE WBAT or #) (%) Recommendations To Nursing Amount of Assist Needed 3 or More Person Assist, Mechanical Lift Discharge Recommendations PT Discharge Recommendations SNF Rehab Transportation Needs at Discharge Wheelchair/Cabulance,Stretcher /Ambulance
[2024-10-16 11:28] LABS: HEMOLYSIS < 15 (0-50); Iron 50 ug/dL (37-170)
[2024-10-16 11:39] LABS: Percent Iron Saturation 21 % (15-50); Total Iron Binding Capacity 239 ug/dL (265-497); Transferrin 209 mg/dL (206-381)
[2024-10-16] MEDS: ACETAMINOPHEN 325 MG TABLET 650 MG PO ×2 (12:01→18:06)
[2024-10-16] MEDS: ENOXAPARIN 40 MG/0.4 ML SYRINGE SUBCUT (12:48)
[2024-10-16 16:00] VITALS: BP 108/60; PULSE 83; RESP 16; TEMP 36.1; O2SAT 100
[2024-10-16 19:00] VITALS: BP 100/55; PULSE 85; RESP 18; TEMP 36.9; O2SAT 98
[2024-10-16] MEDS: diphenhydrAMINE 25 MG TABLET 50 MG PO (20:31)
[2024-10-16] MEDS: ATORVASTATIN 20 MG TABLET 40 MG PO (20:32)
[2024-10-16] MEDS: CHOLECALCIFEROL (VITAMIN D3) 1,000 UNIT TABLET 2000 UNIT PO (20:33)
[2024-10-16 20:37] VITALS: BP 105/57; PULSE 90
[2024-10-16] MEDS: METOPROLOL ER 25 MG TABLET PO (20:37)
[2024-10-17] MEDS: methocarbamoL 500 MG TABLET PO ×3 (00:25→23:46)
[2024-10-17] MEDS: ACETAMINOPHEN 325 MG TABLET 650 MG PO ×4 (00:25→20:11)
[2024-10-17 02:00] VITALS: BP 105/55; PULSE 73; RESP 18; TEMP 36.1; O2SAT 95
[2024-10-17 05:12] LABS: Add Manual Diff / Slide Review NO; Basophils Absolute Auto 100 /uL (0-100); Basophils Percent Auto 0.9 % (0-2); Eosinophils Absolute Auto 200 /uL (0-450); Eosinophils Percent Auto 3.7 % (2-4); Hematocrit 24.1 % (36-46); Hemoglobin 8.1 g/dL (12.0-16.0); Lymphocytes Absolute Auto 1400 /uL (1100-4500); Lymphocytes Percent Auto 21.4 % (25-40); Mean Corpuscular HGB Conc 33.8 % (30-36); Mean Corpuscular Hemoglobin 33.4 PG (26-34); Mean Corpuscular Volume 98.9 fL (80-100); Monocytes Absolute Auto 500 /uL (0-900); Neutrophils Absolute Auto 4200 /uL (1500-7000); Platelet Count 231 X10^3/uL (150-400); Red Blood Cell Count 2.43 X10^6/uL (4.0-5.2); Red Cell Distribution Width 14.3 % (11.6-14.8); White Blood Cell Count 6.3 X10^3/uL (4.5-11.0)
[2024-10-17] MEDS: TRAMADOL 50 MG TABLET PO ×4 (05:14→23:56)
[2024-10-17] MEDS: PANTOPRAZOLE DR 20 MG TABLET 40 MG PO (06:25)
--- NOTE | 2024-10-17 07:53 | P.DS_ITS ---
History of Present Illness History of Present Illness Date Patient Seen: 10/17/24 Chief complaint: Fall Narrative: She is seen today to follow-up her urinary tract infection, acute blood loss anemia, postop hip IM nail. The selected halfway facility will be accepting her tomorrow. The hemoglobin is 8.1 with an iron level of 50. The urine culture shows that the nitrofurantoin is sensitive. She says that she was able to stand up by the bed yesterday. We will remove her Blanco today. Discharge Providers Provider Date of admission: 10/09/24 17:09 Primary care physician: Victor Manuel Love MD Consults: 10/09/24 16:49 Consult to Orthopedic Surgery Stat Comment: Consulting Provider: Aicha Nagel Reason for consultation: hip fracture Has provider been notified: Yes 10/10/24 11:00 Consult to Pastoral Services Routine Comment: Asked for supervisory aide visit 10/10/24 14:47 Consult to Discharge Planning Routine Comment: Consult to Occupational Therapy Evaluate & Treat Comment: Physician Instructions: Evaluate and treat Consult to Physical Therapy Evaluate & Treat Comment: Physician Instructions: Evaluate and Treat Discharge provider: Lesley Navarro MD Summary Hospital Course Discharge Diagnosis: 1. Left intertrochanteric hip fracture. POD #6. Doing well. Anticipating SNF for rehab. Hgb dropped to 7.7 so she received an iron infusion with an increase to 8.1 the next day. The aspirin was stopped. She had epigastric tenderness. The facial bruising has followed some dependent progression. Anesthesia was contacted and were able to reassure the family. She is already on a PPI. The Hgb is up today at 8.5. 2. Congestive heart failure with 35-40% ejection fraction. Resumed Diuretics. 3. Coronary artery disease. Clinically stable. EKG and Echo reviewed. Resumed Metoprolol, torsemide, spironolactone and Losartan. 4. Hypertension. Spironolactone, metoprolol and losartan. 5. Hyperlipidemia. Continue routine medication. 6. SERGE/CKD. Creatinine 1.08. 7. Depression continue SSRI. 8. Enterococcus blanco catheter colonization. Treat per family request. Macrobid. 9. DVT prophylaxis: Sequential compression devices, postoperative management per Orthopedics. Start Lovenox. 10. Code status: Full code. Plan: -Post operative management per Orthopedics -anesthesia spoke with the family about the bruising on the face. -stopped aspirin due to progressive anemia and epigastric tenderness -continue Protonix -consider referral to surgery for EGD. -follow H/H. -resumed Metoprolol and Losartan, spironolactone and torsemide -Pending [facility] on 10/17/24 -SCD for DVT prevention, Add Lovenox on 10/16 as the Hgb is now rising. Exam Vital Signs (past 8 hours): - 10/17/24 02:00 Temperature 97.0 F L Pulse Rate 73 Respiratory Rate 18 Blood Pressure 105/55 L Pulse Oximetry 95 Oxygen Flow Rate 0 Fraction of Inspired Oxygen 28 SaO2/FiO2 Ratio 350 Oxygen Delivery Method Room Air Oxygen Flow Rate 0 Objective Labs 10/17/24 04:50 10/14/24 05:40 Labs: Laboratory Results - last 24 hr 10/16/24 10/16/24 10/17/24 10:16 10:40 04:50 WBC 6.8 6.3 RBC 2.58 L 2.43 L Hgb 8.5 L 8.1 L Hct 25.6 L 24.1 L MCV 99.3 98.9 MCH 33.1 33.4 MCHC 33.4 33.8 RDW 14.0 14.3 Plt Count 217 231 Neut % (Auto) 73.5 66.0 Lymph % (Auto) 15.3 L 21.4 L [place] % (Auto) 7.6 8.0 Eos % (Auto) 3.2 3.7 Baso % (Auto) 0.4 0.9 Neut # (Auto) 5000 4200 Lymph # (Auto) 1000 L 1400 [place] # (Auto) 500 500 Eos # (Auto) 200 200 Baso # (Auto) 0 100 Iron 50 TIBC 239 L % Saturation 21 Transferrin 209 Urine Color Yellow Urine Appearance Clear Urine pH 7.0 Ur Specific [place] 1.010 Urine Protein Negative Urine Glucose (UA) Negative Urine Ketones Negative Urine Occult Blood 1+ H Urine Nitrate Negative Urine Bilirubin Negative Urine Urobilinogen 1.0 Ur Leukocyte Esterase Negative Urine RBC 1-5/hpf Urine WBC 1-5/hpf Ur Squamous Epith Cells 10-30 /hpf H D Urine Bacteria None seen Ur Culture Indicated? Cult not indicated Vol Urine Centrifuged 10ml (spun) [facility] Medical History Coronary artery disease Hypertension Congestive heart failure Surgical History History of implantable cardiac defibrillator (ICD) Social History household members: spouse Smoking Status: Never smoker alcohol intake: current Discharge Plan Discharge orders & Medications Prescriptions: No Action atorvastatin [Lipitor] 40 mg tablet 40 mg PO DAILY torsemide 20 mg tablet 40 mg PO DAILY spironolactone 25 mg tablet 25 mg PO BID mexiletine 150 mg capsule 150 mg PO BID lansoprazole [Prevacid] 30 mg capsule,delayed release(DR/EC) 30 mg PO DAILY losartan 25 mg tablet 12.5 mg PO DAILY topiramate [Topamax] 200 mg tablet 200 mg PO BID metoprolol succinate 25 mg tablet extended release 24 hr 25 mg PO DAILY B complex with C 20-folic acid 1 mg Capsule 1 cap PO DAILY paroxetine HCl [Paxil] 40 mg tablet 40 mg PO DAILY potassium chloride 10 mEq tablet,ER particles/crystals 10 meq PO TID cholecalciferol (vitamin D3) [Vitamin D3] 50 mcg (2,000 unit) Capsule 50 mcg PO DAILY folic acid 800 mcg Tablet 0.8 mg PO DAILY aspirin [Aspir-81] 81 mg Tablet,Delayed Release (Dr/Ec) 162 mg PO DAILY paroxetine HCl 40 mg tablet 40 mg PO DAILY Follow up/Referrals: Victor Manuel Love MD [Primary Care Provider] - Darion Sullivan MD [Physician] - 2 Weeks (Follow up w/ PA at [facility] or Dr Sullivan in 2 weeks for wound check.) Diet/Activity/Treatments Activity: Weightbearing as tolerated to left leg. Visit Report/Discharge Packet Instructions: How to Use an Incentive Spirometer, Good Food Sources of Iron, Heart Failure, DI for Femoral Fracture, DI for Constipation, How to Prevent Falls, DI for Prescription Opioid Use Stand Alone Forms: Stroke Signs & Symptoms Discharge Data Primary Care Provider: Victor Manuel Love
[2024-10-17 08:00] VITALS: BP 122/59; PULSE 77; RESP 18; TEMP 36.2; O2SAT 96
[2024-10-17] MEDS: ENOXAPARIN 40 MG/0.4 ML SYRINGE SUBCUT (09:27)
[2024-10-17 09:28] VITALS: BP 122/59
[2024-10-17] MEDS: cephALEXin 250 MG CAPSULE 500 MG PO ×3 (09:28→19:59)
[2024-10-17] MEDS: LOSARTAN 25 MG TABLET 12.5 MG PO (09:28)
[2024-10-17] MEDS: POTASSIUM CHLORIDE 10 MEQ TAB PO (09:28)
[2024-10-17] MEDS: SPIRONOLACTONE 25 MG TABLET 12.5 MG PO (09:28)
[2024-10-17] MEDS: PARoxetine 20 MG TABLET 40 MG PO (09:28)
[2024-10-17] MEDS: TORSEMIDE 10 MG TABLET 40 MG PO (09:28)
[2024-10-17] MEDS: MEXILETINE 150 MG 150 EACH PO ×2 (09:29→20:00)
[2024-10-17] MEDS: NITROFURANTOIN ER 100 MG CAPSULE PO ×2 (09:29→19:59)
[2024-10-17] MEDS: TOPIRAMATE 100 MG TABLET 200 MG PO ×2 (09:29→20:00)
[2024-10-17] MEDS: SODIUM CHLORIDE 0.9% FLUSH 10 ML IV ×2 (09:30→20:00)
--- NOTE | 2024-10-17 10:27 | DIET.CONS ---
Dietary Consultation Note Admission Date: 10/09/2024 17:09 Assessment: 74 y F admitted for hip fracture. RD screened for LOS. Variable recorded PO intakes during stay. Multiple snacks from home available to patient in room, which patient has been having between meals sometimes. Met with patient and family at beside. Reports she has been eating more here in hospital than at home. Family mentions patient trying to eat less at home for weight loss and that patient gets full quickly. Unsure about any recent weight loss or looser fitting clothing. Family with questions regarding good iron sources in food. Ht: 154.94 cm Wt: 78 kg BMI: 30.2 UBW: 68 kg per pt, no weight hx per EMR. Last BM: 10/14/24 (10/14/24 19:00) MNA: 14 Edwar Score: 18 Diet: 10/10/24 Dinner General (Regular) Diet Diet Modifications: Food Texture: Level 7 - Regular Liquid Consistency: Level 0 - Thin Nutrition Percent Meal Consumed 50% 10/16/24 18:00 Percent Meal Consumed 75% 10/16/24 12:37 Percent Meal Consumed 25% 10/15/24 18:00 Percent Meal Consumed 0% 10/15/24 12:00 Labs: RBC 2.43 X10^6/uL (4.0-5.2) L 10/17/24 04:50 Hgb 8.1 g/dL (12.0-16.0) L 10/17/24 04:50 Hct 24.1 % (36-46) L 10/17/24 04:50 Creatinine 1.08 mg/dL (0.52-1.04) H 10/14/24 05:40 Iron 50 ug/dL (37-170) 10/16/24 10:40 % Saturation 21 % (15-50) 10/16/24 10:40 NT-Pro-B Natriuret Pep 844 pg/mL (<450) H 10/09/24 20:59 Nutrition Diagnosis: Inadequate oral intake r/t decreased appetite/early satiety aeb patient/family report, avg 45% recorded PO intakes during admission Interventions: -Encouraged adequate intake for recovery with small freq meals/snacks. Discussed balanced snacks between meals. -Addressed questions regarding iron sources in food. Monitoring/Evaluations: po intakes Electronically Signed by: Clarissa Mireles 10/17/24 10:27 Clinical Dietitian [address] [address]
--- NOTE | 2024-10-17 11:00 | CM.DPC ---
DCP SNF Planning: Per MD, pt likely stable for d/c to SNF today. SW spoke to yvette May at [facility] in [place] and she confirms they can accept the patient but not until tomorrow 10/18/24 as they had an RN call in sick today. Preference is arrival prior to 1400 tomorrow and uncertain if spouse would be able to stay the night but could visit morning until late night if wanted. SW met bedside with pt, spouse, son and Dtr and updated on acceptance at [facility] for tomorrow and they remain agreeable, even if spouse cannot stay overnight and in agreement with SW setting up Private Pay cabulance to [facility] for tomorrow and requested to inquire if spouse could ride with patient for transport to SNF and Dtr and son would take his vehicle up to SNF. SW called [facility] transport and they have availability tomorrow for cabulance and bringing w/c at 1100 to [facility] and their system is down to provide a quote but took spouse's name and contact info and they will call him with the cost and for payment once their system is back up and working. SW updated pt, spouse, son, and Dtr and they remain in agreement and will wait to hear from [facility] and will make payment via phone. Plan: SW to follow for plan of discharge to [facility] in [facility] tomorrow 10/18/24 via private pay [facility] at 1100. TERESA Leonard
--- NOTE | 2024-10-17 11:08 | PT.IPTN ---
Current Diagnoses Fracture of unspecified part of neck of left femur, initial encounter for closed fracture (10/09/24) Surgery Performed Operation Date: 10/10/24 14:15 Actual Procedures p intertrochanteric hip(Left) - Darion Sullivan MD Physical Therapy Treatment Note M2 PT-IP Current Condition Start: 10/11/24 14:39 Freq: NEEDED Status: Active Protocol: Document 10/14/24 14:02 AB (Rec: 10/14/24 15:11 AB [id number]) Physical Therapy Current Condition Current Condition Evaluation Date 10/11/24 Treatment Diagnosis L femur fx s/p ORIF; difficulty in walking Onset Date 10/09/24 M3 PT-IP Subjective Start: 10/11/24 14:39 Freq: NEEDED Status: Active Protocol: Document 10/17/24 10:27 MB (Rec: 10/17/24 11:08 MB [id number]) Subjective Physical Therapy Visit Type Type Treatment Note Visit Start Time 10:27 Visit Stop Time 10:55 Number of EAR NOSE THROAT SURGEON Visits 0 Physical Therapy Visit Comments Patient Comments agrees to PT for pt and pt is reluctant, stating she just got a bed bath. Therapy Pain Assessment Pain When Pain Assessed During Mobility Pain Present Pain Present Pain Reported Location Left Hip Intensity 9 M4 PT-IP Mobility and Gait Start: 10/11/24 14:39 Freq: NEEDED Status: Active Protocol: Document 10/17/24 10:27 MB (Rec: 10/17/24 11:08 MB [id number]) PT-Bed Mobility Assessment Rolling Type of Rolling Roll to Right Level of Assist Maximal Assistance,1 Person Assistance Supine to Sit Supine to Sit Moderate Assistance,Maximum Assistance,1 Person Assistance ,Head of Bed Elevated,Bedrails Scooting Scooting to Edge of Bed Maximum Assistance PT-Transfer Assessment Sit to and From Stand Sit to and from Stand Minimal Assistance,1 Person Assistance,Use of Upper Extremities Equipment Transfer Assistive Device Gait Belt,Front Wheeled Walker Orthotic/Prosthetic Devices or Brace: No Transfers Transfer Destination Chair Transfer Technique Stepping Transfer Ability Level of Assist Maximum Assistance,2 Person Assistance,Use of Upper Extremities Comments Mobility Comments PT must move left LE for rolling and scooting and then pt can use right foot to help scoot left leg off the side of the bed. Pt is then able to do 50% of work of pushing self up from sidelying using HOB rail and UEs. To scoot out, pt is able to shift weight and scoot each hip out some and then PT uses pad to bring left hip far enough out to be able to stand up. Gait Assessment Gait Gait Assistance Required: Maximum Assistance,2 Person Assist Distance (Feet) 1 Able to Maintain Weight Bearing Status Yes During Gait Assistive Devices Assistive Device Gait Belt,Front Wheeled Walker Orthotic/Prosthetic Devices or Brace: No Gait Deviations General Gait Pattern Antalgic,Decreased Stride Length,Decreased Feet Clearance,Flexed Trunk,Narrow Based Gait,Step-to Gait Factors Limiting Gait Function Factors Limiting Gait Function Decreased Activity Tolerance, Decreased Strength,Difficulty Following Directions,Limited Range of Motion,Pain,Poor Balance,Poor Safety Awareness Comments Gait Comments Pt has trouble picking up both feet and making clear steps, posterior lean and 2nd person nearby for safety, frequent cues and daughter and tend to very loudly cue and cheer lead/enourage pt which is somewhat distracting to pt when they give too many or different cues that PT PT-Balance Assessment Sitting Balance and Reactions Static Sitting Balance Ability Fair Dynamic Sitting Balance Ability Poor Standing Balance and Reactions Static Standing Balance Ability Poor Dynamic Standing Balance Ability Poor Device Used FWW M5 PT-IP Objective Assessments Start: 10/11/24 14:39 Freq: NEEDED Status: Active Protocol: Document 10/13/24 09:47 AB (Rec: 10/13/24 10:52 AB [id number]) Orientation Orientation/Cognition Level of Alertness Alert Orientation Birthday,Month,Year,Situation Language Function Ability No Deficits Noted Safety Awareness Decreased Safety Awareness Memory Description Short Term Impaired,Hoop Machine Operator Impaired M6 PT-IP Treatment Start: 10/11/24 14:39 Freq: NEEDED Status: Active Protocol: Document 10/17/24 10:27 MB (Rec: 10/17/24 11:08 MB [id number]) Physical Therapy Treatment Other Treatments Other Treatment Performed Ed pt and family in benefits of AP, GS, QS and HS and especially encouraging pt in HS and performing what she can herself to help with scooting legs in the bed, ed family in benefits of stepping out for therapy at times to allow pt to process more/be able to understand therapist cues and perform more activity for herself to promote I M7 PT-IP Assessment and Plan Start: 10/11/24 14:39 Freq: NEEDED Status: Active Protocol: Document 10/17/24 10:27 MB (Rec: 10/17/24 11:08 MB [id number]) PT Summary Assessment and Plan Potential Rehabilitation Potential Fair Status of Condition at Evaluation Evolving Summary Impairments Pain,ROM,Strength,Balance, Coordination,Sensation,Tone, Cognition,Bed Mobility, Transfers,Gait,Activity Tolerance Progress Towards Goals Slow Progress due to Pain,Slow Progress due to Activity Tolerance Assessment Summary Pt requires 1 person mod to max A for bed mobility, 1 person assist for STS and 2 person assist for stepping with RW to chair with strong posterior lean and trouble following commands/initiating all movement. While daughter and are verbally encouraging to pt, their cues are a lot and occ differ from PT's and this may have disrupted pt's understanding today. Recommend SNF at d/c. Current plan from rounds is d/ c to SNF in [place] next date. Goals Bed Mobility Goal Minimal Assistance Transfer Goal Minimal Assistance,Front Wheeled Walker Gait Goal Minimal Assistance,Front Wheel Walker Gait Distance 25 Other Goals improve bed mobility, transfers, ambulation using FWW ~ 100 ft SBA Days to Meet Goals 5 Frequency of Treatment Frequency Of Treatment Once a Day Other frequency . Treatment Plan Physical Therapy Treatment Plan Bed Mobility Training,Transfer Training,Gait Training, Therapeutic Exercise,Balance Retraining,Post Op Education, Discharge Planning,Hot or Cold Pack,Neuromuscular Re-ed, Coordination Retraining,Manual Therapy Weight Bearing Status Weight Bearing Status Weight Bear as Tolerated Allowed Weight Bearing Amount (enter % LLE WBAT or #) (%) Recommendations To Nursing Amount of Assist Needed 2 Person Assist Discharge Recommendations PT Discharge Recommendations SNF Rehab Transportation Needs at Discharge Wheelchair/Cabulance,Stretcher /Ambulance
--- NOTE | 2024-10-17 13:08 | OT.IP.TRT ---
Current Diagnoses Fracture of unspecified part of neck of left femur, initial encounter for closed fracture (10/09/24) Surgery Performed Operation Date: 10/10/24 14:15 Actual Procedures p intertrochanteric hip(Left) - Darion Sullivan MD Occupational Therapy Treatment Note M2 OT-IP Current Condition Start: 10/11/24 13:21 Freq: Status: Active Protocol: Document 10/11/24 13:21 [facility] (Rec: 10/11/24 13:37 [facility] [id number]) Occupational Therapy Current Condition Current Condition Evaluation Date 10/11/24 Treatment Diagnosis L hip fx, S/P ORIF Diagnosis Onset Date 10/09/24 Weight Bearing Status Weight Bearing Status Weight Bear as Tolerated M3 OT- IP Subjective and Pain Start: 10/11/24 13:21 Freq: Status: Active Protocol: Document 10/17/24 13:44 [facility] (Rec: 10/17/24 13:50 [facility] [id number]) OT- Subjective Occupational Therapy Visit Type Type Treatment Note Visit Start Time 12:55 Visit Stop Time 13:08 Occupational Therapy Visit Comments Patient Comments Pt wanting to get back to bed. Patient/Caregiver Goals TO get better. OT Pain Assessment Pain When Pain Assessed During Mobility Pain Present Pain Present Pain Reported Location Left Hip Pain Behaviors Facial Grimacing M4 OT- IP ADL's Start: 10/11/24 13:21 Freq: Status: Active Protocol: Document 10/17/24 13:44 [facility] (Rec: 10/17/24 13:50 [facility] [id number]) OT AON-Ptab-Plsexsa Comments OT Self-Feeding Comments Not at meal time. OT ADL-Dressing General Eval Lower Body Dressing Ability Total Assistance Areas Needing Assistance Underpants/Brief,Socks OT ADL-Toileting General Evaluation Toileting Ability Total Assistance Areas Needing Assistance Empty Catheter or Colostomy, Manage Clothing,Perform Perineal Hygiene Comments OT Toileting Comments MAX AX 1 to stand another person to assist with hygiene and clothing needs. M5 OT- IP IADL's Start: 10/11/24 13:21 Freq: Status: Active Protocol: Document 10/11/24 13:21 [facility] (Rec: 10/11/24 13:37 [facility] [id number]) OT-Instrumental Activities of Daily Living Home Safety Awareness Awareness of Need for Assistance at Home Decreased Awareness Ability to Problem Solve Emergency Unable to Problem Solve Situations Home Safety Comments Pt is groggy and confused at this time. Medication Management Medication Management Caregiver Administers Money Management Money Management Caregiver Provides Assistance Meal Preparation Meal Preparation Caregiver Provides Assist Headwaiter/Headwaitress Headwaiter/Headwaitress Caregiver Provides Assist Driving Driving Caregiver Provides Assist M6 OT- IP Functional Cognition Start: 10/11/24 13:21 Freq: Status: Active Protocol: Document 10/17/24 13:44 [facility] (Rec: 10/17/24 13:50 [facility] [id number]) Cognitive Factors Limiting Selfcare Function Cognitive Comments Cognitive Assessment Comments Pt still needing encouragement , tactile and vc to follow commands. M7 OT- IP Mobility and Balance Start: 10/11/24 13:21 Freq: Status: Active Protocol: Document 10/17/24 13:44 [facility] (Rec: 10/17/24 13:50 [facility] [id number]) OT- Bed Mobility Assessment Sit to Supine Sit to Supine Assist Maximum Assistance,Total Assistance OT-Transfer Assessment Sit to and From Stand Sit to and from Stand Maximum Assistance,1 Person Assistance Transfers Transfer Ability Moderate Assistance,2 Person Assistance Technique Transfer Destination Bed,Bedside Commode Transfer Technique Stand Step Pivot Devices Transfer Assistive Devices Gait Belt,Front Wheeled Walker Comments Mobility Comments MAX AX 1 to stand from the BSC . MODA X 2 to transfer back to bed , tactile cues to move her LLE. Pt able to move better today. OT- Balance Assessment Sitting Balance and Reactions Static Sitting Balance Ability Good Dynamic Sitting Balance Ability Fair Standing Balance and Reactions Static Standing Balance Ability Fair Dynamic Standing Balance Ability Poor M8 OT- IP Objective Assessments Start: 10/11/24 13:21 Freq: Status: Active Protocol: Document 10/11/24 13:21 [facility] (Rec: 10/11/24 13:37 [facility] [id number]) OT Gross Range of Motion Upper Extremity Range of Motion Assessment Within Functional Limits OT Strength Comments Strength Comments BUE at least 4/5 OT- Coordination Assessment Upper Extremity Finger to Nose Test Within Functional Limits M9 OT- IP Assessment and Plan Start: 10/11/24 13:21 Freq: Status: Active Protocol: Document 10/17/24 13:44 [facility] (Rec: 10/17/24 13:50 [facility] [id number]) OT Summary Assessment and Plan Potential Rehabilitation Potential Good Analytic Complexity at Evaluation Moderate Summary OT Impairments Pain,Range of Motion,Strength, Balance,Functional Cognition, Functional Mobility,Self- Feeding,Grooming,Dressing, Toileting,Bathing,Toilet Transfers,Shower Transfers, Activity Tolerance Progress Towards Goals Progressing Toward Goals Assessment Summary Pt doing better and actively able to move better and participate with less cues. Pt to go to skilled rehab tomorrow. Goals Self-Feeding Goal Independent Grooming Goal Independent Dressing Goal Moderate Assistance Toileting Goal Minimal Assistance Bathing Goal Minimal Assistance Toilet Transfer Goal Minimal Assistance Shower Transfer Goal Moderate Assistance Days to Meet Goals 27 Frequency of Treatment Other frequency 5x/week Treatment Plan OT Treatment Plan ADL Training,Functional Cognition Training,Functional Mobility,Patient/Family Education,Discharge Planning Other Treatment Recommendations and Next Practice LB dressing equipment Treatment Focus Discharge Recommendations OT Discharge Recommendations SNF Rehab Transportation Needs at Discharge Wheelchair/Cabulance
--- NOTE | 2024-10-17 13:32 | PC.NURSE ---
pt blanco removed at 11:25, per MD order. pt tolerated well, able to void x2 after removal.
--- NOTE | 2024-10-17 14:12 | P.PN_ITS ---
Subjective Subjective Date Patient Seen: 10/17/24 Interval history: She is seen today to follow-up her urinary tract infection, acute blood loss anemia, postop hip IM nail.? The selected half-way facility will be accepting her tomorrow.? The hemoglobin is 8.1 with an iron level of 50.? The urine culture shows that the nitrofurantoin is sensitive.? She says that she was able to stand up by the bed yesterday.? We will remove her Blanco today. Exam Vital Signs (past 8 hours): - 10/17/24 08:00 10/17/24 09:28 Temperature 97.1 F L Pulse Rate 77 Respiratory Rate 18 Blood Pressure 122/59 L 122/59 L Pulse Oximetry 96 Oxygen Flow Rate 0 Fraction of Inspired Oxygen 28 SaO2/FiO2 Ratio 350 Oxygen Delivery Method Room Air Oxygen Flow Rate 0 Narrative Exam Narrative: Alert and oriented x3. No apparent distress. Her family are hovering at bedside. Heart is regular rate and rhythm without murmur Lungs are clear to auscultation bilaterally Extremities have no ankle edema Objective Labs 10/17/24 04:50 10/14/24 05:40 Labs: Laboratory Results - last 24 hr 10/17/24 04:50 WBC 6.3 RBC 2.43 L Hgb 8.1 L Hct 24.1 L MCV 98.9 MCH 33.4 MCHC 33.8 RDW 14.3 Plt Count 231 Neut % (Auto) 66.0 Lymph % (Auto) 21.4 L [place] % (Auto) 8.0 Eos % (Auto) 3.7 Baso % (Auto) 0.9 Neut # (Auto) 4200 Lymph # (Auto) 1400 [place] # (Auto) 500 Eos # (Auto) 200 Baso # (Auto) 100 PFSH Medical History Coronary artery disease Hypertension Congestive heart failure Surgical History History of implantable cardiac defibrillator (ICD) Social History household members: spouse Smoking Status: Never smoker alcohol intake: current Assessment & Plan Assessment & Plan narrative: 1. Left intertrochanteric hip fracture. POD #7. Doing well. Anticipating SNF 10/18 for rehab. Hgb dropped to 7.7 so she received an iron infusion with an increase to 8.1 the next day. The aspirin was stopped. She had epigastric tenderness. The facial bruising has followed some dependent progression. Anesthesia was contacted and were able to reassure the family. She is already on a PPI. The Hgb 8.1 today. 2. Congestive heart failure with 35-40% ejection fraction. Resumed Diuretics. 3. Coronary artery disease. Clinically stable. EKG and Echo reviewed. Resumed Metoprolol, torsemide, spironolactone and Losartan. 4. Hypertension. Spironolactone, metoprolol and losartan. 5. Hyperlipidemia. Continue routine medication. 6. SERGE/CKD. Creatinine 1.08. 7. Depression continue SSRI. 8. Enterococcus blanco catheter colonization. Treat per family request. Macrobid confirmed sensitive. 9. DVT prophylaxis: Sequential compression devices, postoperative management per Orthopedics. Resumed Lovenox on 10/16/2024. 10. Code status: Full code. Plan: -Post operative management per Orthopedics -anesthesia spoke with the family about the bruising on the face. -stopped aspirin due to progressive anemia and epigastric tenderness -continue Protonix -consider referral to surgery for EGD. -follow H/H. -resumed Metoprolol and Losartan, spironolactone and torsemide -Pending [facility] on 10/18/24 -SCD for DVT prevention, Added Lovenox on 10/16 as the Hgb is now rising. Time-Based Coding :: [TOTAL MINUTES] spent with patient and on the chart (including review of chart, obtaining history, exam, reviewing outside data, placing orders, documenting exam and treatment plan, and counseling patient) on [DATE].
[2024-10-17 16:00] VITALS: BP 96/48; PULSE 79; RESP 18; TEMP 36.1; O2SAT 97
--- NOTE | 2024-10-17 16:14 | CM.DPNOTE ---
DCP Note From son, still had not heard from [employer] [facility] about securing payment. OVERNIGHT CAREGIVER spoke with Marty at [employer], ([phone]) he reports their computer servers are down for payment but will call family tomorrow for payment, trip is secured no matter what. OVERNIGHT CAREGIVER updated family on the above. Family report their concern is not knowing cost, and they were quoted at roughly $220 from this [employer] company in [place] (name?) and wouldn't want to pay [employer] more than roughly $200. OVERNIGHT CAREGIVER gave son [employer] transport phone number to get further information on cost estimate. If the cost from [employer] is significantly different than this other agency, son plans to secure alternative transport and will update our team tomorrow morning. See other CM note for further DCP information. TERESA Bowers
--- NOTE | 2024-10-17 18:55 | PC.NURSE ---
10/11/24: Gave patient ordered 5mg PO Oxycodone for pain rated 6/10 per MD pain scale. Patient tolerated well after. Forgot to scan d/t interruption in middle of med pass. Making late record of this oversight as requested by ARIANA Fuentes on 10/12.
[2024-10-17] MEDS: ATORVASTATIN 20 MG TABLET 40 MG PO (19:59)
[2024-10-17] MEDS: CHOLECALCIFEROL (VITAMIN D3) 1,000 UNIT TABLET 2000 UNIT PO (19:59)
[2024-10-17 20:00] VITALS: BP 109/56; PULSE 88; RESP 17; TEMP 36.1; O2SAT 99
[2024-10-17 20:10] VITALS: BP 96/50; PULSE 84
[2024-10-18] MEDS: ACETAMINOPHEN 325 MG TABLET 650 MG PO ×2 (03:08→11:04)
[2024-10-18] MEDS: TRAMADOL 50 MG TABLET PO ×2 (06:38→11:04)
[2024-10-18] MEDS: PANTOPRAZOLE DR 20 MG TABLET 40 MG PO (06:38)
--- NOTE | 2024-10-18 07:56 | PM.DS.1 ---
History of Present Illness History of Present Illness Date Patient Seen: 10/18/24 Chief complaint: Fall Narrative: 74-year-old [place] with her tripped coming out of the bathroom, landing on her left hip with immediate pain. She also struck her right shoulder though states there is no pain in this area. She was unable to get up and was brought to the emergency department where she was found to have a left hip intertrochanteric fracture. She has a history of coronary disease and congestive heart failure, ejection fraction 40%, status post AICD pacemaker placement. She denies recent chest pain or cardiac symptoms, and has been stable for several years according to her and her . They had wished to transfer to [facility] though given lack of available bed space was agreeable to staying for surgical and medical management. Discharge Providers Provider Date of admission: 10/09/24 17:09 Discharge Date: 10/18/24 Primary care physician: Victor Manuel Love MD Consults: 10/09/24 16:49 Consult to Orthopedic Surgery Stat Comment: Consulting Provider: Aicha Nagel Reason for consultation: hip fracture Has provider been notified: Yes 10/10/24 11:00 Consult to Pastoral Services Routine Comment: Asked for proposal consultant visit 10/10/24 14:47 Consult to Discharge Planning Routine Comment: Consult to Occupational Therapy Evaluate & Treat Comment: Physician Instructions: Evaluate and treat Consult to Physical Therapy Evaluate & Treat Comment: Physician Instructions: Evaluate and Treat Discharge provider: Lesley Navarro MD Summary Hospital Course Discharge Diagnosis: 1. Left intertrochanteric hip fracture. POD #8. Doing well. Related Blood Loss Anemia - Hgb up to 8.9 on day of discharge. Received Iron infusion. 2. Congestive heart failure with 35-40% ejection fraction. Resumed Diuretics. 3. Coronary artery disease. Clinically stable. EKG and Echo reviewed. Resumed Metoprolol, torsemide, spironolactone and Losartan. 4. Hypertension. Spironolactone, metoprolol and losartan. 5. Hyperlipidemia. Continue routine medication. 6. SERGE/CKD. Creatinine 1.08. 7. Depression continue Paroxetine 8. Enterococcus blanco catheter colonization. Treat per family request. Macrobid confirmed sensitive. 9. DVT prophylaxis: Stopped Aspirin due to dropping hgb/Epigastric pain. After Hgb stabilized started on Lovenox on 10/16/2024. 10. Code status: Full code. Hospital Course: [place] and was [place] here for repair. Postoperatively she was on aspirin for DVT prophylaxis but then experienced epigastric pain and a dropping hemoglobin so was treated with IV iron infusion, continuation of Protonix and then several days later after the hemoglobin stabilized was restarted on Lovenox. Her Blanco catheter was removed yesterday successfully. She is on Macrobid for an Enterococcus urine culture done on the catheter specimen. There were never any UTI symptoms but patients family was insistent. She is going to halfway facility rehab close to her home in [place] at [facility]. Status at Discharge Cognitive/behavioral status at discharge: at baseline, oriented Functional status at discharge: uses cane/walker Overall status at discharge: patient is progressing back to baseline Exam Vital Signs (past 8 hours): Fraction of Inspired Oxygen 28 SaO2/FiO2 Ratio 350 Oxygen Delivery Method Room Air Oxygen Flow Rate 0 Narrative Exam Narrative: Alert and oriented x3. No apparent distress. Heart is regular rate and rhythm without murmur Lungs are clear to auscultation bilaterally Extremities have no ankle edema Objective Labs 10/18/24 08:08 10/14/24 05:40 PFSH Medical History Coronary artery disease Hypertension Congestive heart failure Surgical History History of implantable cardiac defibrillator (ICD) Social History household members: spouse Smoking Status: Never smoker alcohol intake: current Discharge Plan Discharge Plan Patient Disposition: SNF Other facility: [facility] Under care of provider: Facility Streetcar Dispatcher Discharge orders & Medications Prescriptions: New methocarbamol 500 mg Tablet 500 mg PO TID PRN (Reason: Muscle Spasm) Qty: 30 0RF acetaminophen 325 mg Tablet 650 mg PO Q6H PRN (Reason: Fever/Mild Pain (1-3)) Qty: 30 0RF spironolactone 25 mg Tablet 12.5 mg PO DAILY Qty: 30 0RF enoxaparin [Lovenox] 40 mg/0.4 mL Syringe 40 mg SUBCUT DAILY Qty: 16 0RF nitrofurantoin monohyd/m-cryst [Macrobid] 100 mg Capsule 100 mg PO BID Qty: 5 0RF tramadol 50 mg Tablet 50 mg PO QID PRN (Reason: Pain, Moderate (4-6)) Qty: 30 0RF pantoprazole 20 mg Tablet,Delayed Release (Dr/Ec) 40 mg PO 0700 Qty: 30 0RF Continued atorvastatin [Lipitor] 40 mg tablet 40 mg PO DAILY torsemide 20 mg tablet 40 mg PO DAILY mexiletine 150 mg capsule 150 mg PO BID lansoprazole [Prevacid] 30 mg capsule,delayed release(DR/EC) 30 mg PO DAILY losartan 25 mg tablet 12.5 mg PO DAILY topiramate [Topamax] 200 mg tablet 200 mg PO BID metoprolol succinate 25 mg tablet extended release 24 hr 25 mg PO DAILY B complex with C 20-folic acid 1 mg Capsule 1 cap PO DAILY paroxetine HCl [Paxil] 40 mg tablet 40 mg PO DAILY potassium chloride 10 mEq tablet,ER particles/crystals 10 meq PO TID cholecalciferol (vitamin D3) [Vitamin D3] 50 mcg (2,000 unit) Capsule 50 mcg PO DAILY folic acid 800 mcg Tablet 0.8 mg PO DAILY aspirin 81 mg Tablet,Delayed Release (Dr/Ec) 162 mg PO DAILY Discontinued spironolactone 25 mg tablet 25 mg PO BID paroxetine HCl 40 mg tablet 40 mg PO DAILY Follow up/Referrals: Victor Manuel Love MD [Primary Care Provider] - Darion Sullivan MD [Physician] - 2 Weeks (Follow up w/ PA at [facility] or Dr Sullivan in 2 weeks for wound check.) Diet/Activity/Treatments Diet: Low-cholesterol Liquid consistency: Normal/Thin Food texture: Regular Activity: Weightbearing as tolerated to left leg. [facility] Reason for rehabilitation: Post-operative therapy Rehab type: Physical therapy and Occupational therapy Visit Report/Discharge Packet Instructions: How to Use an Incentive Spirometer, Good Food Sources of Iron, Heart Failure, DI for Femoral Fracture, DI for Constipation, How to Prevent Falls, DI for Prescription Opioid Use Stand Alone Forms: Patient Portal/API, Stroke Signs & Symptoms Discharge Data Primary Care Provider: Victor Manuel Love
[2024-10-18 08:00] VITALS: BP 126/65; PULSE 87; RESP 18; TEMP 36.2; O2SAT 97
[2024-10-18] MEDS: TORSEMIDE 10 MG TABLET 40 MG PO (08:30)
[2024-10-18] MEDS: TOPIRAMATE 100 MG TABLET 200 MG PO (08:31)
[2024-10-18] MEDS: MEXILETINE 150 MG 150 EACH PO (08:31)
[2024-10-18] MEDS: SPIRONOLACTONE 25 MG TABLET 12.5 MG PO (08:31)
[2024-10-18] MEDS: cephALEXin 250 MG CAPSULE 500 MG PO (08:31)
[2024-10-18] MEDS: POTASSIUM CHLORIDE 10 MEQ TAB PO (08:31)
[2024-10-18] MEDS: PARoxetine 20 MG TABLET 40 MG PO (08:31)
[2024-10-18] MEDS: LOSARTAN 25 MG TABLET 12.5 MG PO (08:32)
[2024-10-18] MEDS: ENOXAPARIN 40 MG/0.4 ML SYRINGE SUBCUT (08:32)
[2024-10-18] MEDS: NITROFURANTOIN ER 100 MG CAPSULE PO (08:32)
[2024-10-18] MEDS: SODIUM CHLORIDE 0.9% FLUSH 10 ML IV (08:33)
[2024-10-18 08:36] LABS: Add Manual Diff / Slide Review NO; Basophils Absolute Auto 100 /uL (0-100); Basophils Percent Auto 1.1 % (0-2); Eosinophils Absolute Auto 200 /uL (0-450); Eosinophils Percent Auto 2.8 % (2-4); Hematocrit 26.5 % (36-46); Hemoglobin 8.9 g/dL (12.0-16.0); Lymphocytes Absolute Auto 900 /uL (1100-4500); Lymphocytes Percent Auto 15.1 % (25-40); Mean Corpuscular HGB Conc 33.7 % (30-36); Mean Corpuscular Hemoglobin 33.5 PG (26-34); Mean Corpuscular Volume 99.2 fL (80-100); Monocytes Absolute Auto 500 /uL (0-900); Monocytes Percent Auto 7.5 % (3-14); Neutrophils Absolute Auto 4600 /uL (1500-7000); Neutrophils Percent Auto 73.5 % (50-75); Platelet Count 296 X10^3/uL (150-400); Red Blood Cell Count 2.67 X10^6/uL (4.0-5.2); White Blood Cell Count 6.3 X10^3/uL (4.5-11.0)
--- NOTE | 2024-10-18 09:30 | CM.DPC ---
DCP Cont. Reviewed EMR and team rounds for status updates. Met with family early this am and confirmed the d/c plan for 11:00am transport with [employer]. Called [employer] and requested that they call pt's spouse meet to arrange for payment, which has been done. D/C clinicals have been faxed, no further CM assistance needs are indicated at this time.
[2024-10-18] MEDS: methocarbamoL 500 MG TABLET PO (11:04)
--- NOTE | 2024-10-18 16:57 | PC.NURSE ---
Transfer: Pt transfered to rehab center in [facility]. Report given to Ángel admitting nurse. Reviewed pt's lengthy hospital course. Decreased blood count however didn't need blood. Reviewed adl's. Her skin condition and dressings. Proximal incision was changed prior to d/c. Dressings are to be left on until she has her follow up appt. She will follow up in 2 weeks. Her questions were answered. She can return call any time she needs to.
== END 2024-10-18 11:30 | DRG 481 ==
LOC: ED 16:25 → AC 17:09
PROVIDERS: Family Medicine; Orthopaedic Surgery Adult Reconstructive Orthopaedic Surgery; Physician Assistant; Admitting Provider Internal Medicine; Emergency Provider Emergency Medicine; PCP Family Medicine; Referring Provider Emergency Medicine; Visit Provider Internal Medicine
PROC: 0QS706Z Reposition Left Upper Femur with Intramedullary Internal Fixation Device, Open Approach (ICD-10-PCS; CPT 27245; principal; 2024-10-10 14:15)
DX: S72.142A Displaced intertrochanteric fracture of left femur, initial encounter for closed fracture (principal); D62 Acute posthemorrhagic anemia; I13.0 Hypertensive heart and chronic kidney disease with heart failure and stage 1 through stage 4 chronic kidney disease, or unspecified chronic kidney disease; I50.20 Unspecified systolic (congestive) heart failure; N17.9 Acute kidney failure, unspecified; I25.10 Atherosclerotic heart disease of native coronary artery without angina pectoris; E78.5 Hyperlipidemia, unspecified; F32.A Depression, unspecified; R00.0 Tachycardia, unspecified; N18.9 Chronic kidney disease, unspecified; G40.909 Epilepsy, unspecified, not intractable, without status epilepticus; I95.1 Orthostatic hypotension; R10.13 Epigastric pain; R23.3 Spontaneous ecchymoses; R26.9 Unspecified abnormalities of gait and mobility; G89.18 Other acute postprocedural pain; R41.0 Disorientation, unspecified; T41.205A Adverse effect of unspecified general anesthetics, initial encounter; W01.0XXA Fall on same level from slipping, tripping and stumbling without subsequent striking against object, initial encounter; Y92.59 Other trade areas as the place of occurrence of the external cause; Z95.810 Presence of automatic (implantable) cardiac defibrillator; Z79.82 Long term (current) use of aspirin; Z22.8 Carrier of other infectious diseases
CPT/HCPCS: 36415; 71045; 73502; 73552; 76000; 80048; 80053; 81001; 82607; 83540; 83550; 83880; 84443; 84484; 85014; 85018; 85025; 85610; 86850; 86900; 86901; 87077; 87086; 87186; 93005; 93306; 93971; 96374; 97110; 97163; 97166; 97530; 97535; 99284; A9270; C1713; J0690; J1171; J1200; J1650; J1756; J2060; J2405; J2470; J2704; J3010; J3490